=== PATIENT | female | born 1935 | race Caucasian/White ===

== ENCOUNTER 2017-01-02 14:51 | Outpatient (CLI) | payer MEDICARE, OTHER | END 2017-01-02 14:52 | disposition home or self-care (01) | DX: D61.9 Aplastic anemia, unspecified (principal) ==

== ENCOUNTER 2017-04-03 12:57 | Outpatient (CLI) | payer MEDICARE, OTHER | END 2017-04-03 12:58 | disposition critical access hospital (66) | DX: S00.81XA Abrasion of other part of head, initial encounter (principal); S80.211A Abrasion, right knee, initial encounter; W01.0XXA Fall on same level from slipping, tripping and stumbling without subsequent striking against object, initial encounter | CPT/HCPCS: A0425; A0429 ==

== ENCOUNTER 2017-04-03 13:25 | Emergency (ER) | payer MEDICARE, OTHER | END 2017-04-03 16:39 | disposition home or self-care (01) | DX: S81.011A Laceration without foreign body, right knee, initial encounter (principal); S00.83XA Contusion of other part of head, initial encounter; S60.512A Abrasion of left hand, initial encounter; S09.90XA Unspecified injury of head, initial encounter; W01.0XXA Fall on same level from slipping, tripping and stumbling without subsequent striking against object, initial encounter; J45.909 Unspecified asthma, uncomplicated ==

== ENCOUNTER 2017-04-25 14:26 | Outpatient (CLI) | payer MEDICARE, OTHER ==
[2017-04-25 14:47] LABS: BASOPHILS % (AUTO) 0.9 %; EOSINOPHILS # (AUTO) 0.7 10^3/uL (0.0-0.7); HCT - HEMATOCRIT 28.9 % (37.0-47.0); HGB - HEMOGLOBIN 9.8 g/dL (12.0-16.0); LYMPHOCYTES # (AUTO) 0.4 10^3/uL (1.5-3.5); LYMPHOCYTES % (AUTO) 10.4 %; MEAN CORPUSCULAR HEMOGLOBIN 35.5 pg (27.0-31.0); MEAN CORPUSCULAR HGB CONC 33.9 g/dL (32.0-36.0); MEAN CORPUSCULAR VOLUME 104.6 fL (81.0-99.0); MEAN PLATELET VOLUME 8.1 fL (7.9-10.8); MONOCYTES # (AUTO) 0.6 10^3/uL (0.0-1.0); MONOCYTES % (AUTO) 14.7 %; NEUTROPHILS # (AUTO) 2.3 10^3/uL (1.5-6.6); RED BLOOD COUNT 2.76 10^6/uL (4.20-5.40); RED CELL DISTRIBUTION WIDTH 13.3 % (12.0-15.0)
[2017-04-25 15:12] LABS: BILIRUBIN,DIRECT 0.1 mg/dL (0.1-0.5); BILIRUBIN,TOTAL 0.8 mg/dL (0.2-1.0); CALCIUM 9.8 mg/dL (8.5-10.3); CREATININE 1.3 mg/dL (0.4-1.0); POTASSIUM 4.4 mmol/L (3.5-5.0); TOTAL PROTEIN 6.2 g/dL (6.7-8.2)
== END 2017-04-25 14:27 | disposition home or self-care (01) ==
LOC: LAB 14:26
PROVIDERS: ATTEND Internal Medicine Hematology
DX: D61.9 Aplastic anemia, unspecified (principal)
CPT/HCPCS: 36415; 80048; 80076; 85025

== ENCOUNTER 2017-09-27 14:49 | Outpatient (CLI) | payer MEDICARE, OTHER | END 2017-09-27 14:50 | disposition home or self-care (01) | LOC: LAB 14:49 | PROVIDERS: ATTEND Internal Medicine | DX: R63.4 Abnormal weight loss (principal) | CPT/HCPCS: 36415; 84443 ==

== ENCOUNTER 2019-01-22 08:00 | Outpatient (CLI) | payer MEDICARE, OTHER ==
[2019-01-22 18:05] LABS: THYROID STIMULATING HORMONE 2.34 uIU/mL (0.34-5.60)
[2019-01-22 18:09] LABS: FREE T4 (FREE THYROXINE) 0.91 ng/dL (0.58-1.64)
== END 2019-01-22 23:59 | disposition home or self-care (01) ==
LOC: LAB.R 08:00
PROVIDERS: ATTEND Internal Medicine
DX: M62.81 Muscle weakness (generalized) (principal)
CPT/HCPCS: 84439; 84443; 84481

== ENCOUNTER 2019-01-23 15:03 | Outpatient (CLI) | payer MEDICARE, OTHER ==
[2019-01-23 15:31] LABS: ALBUMIN 3.6 g/dL (3.2-5.5); ALBUMIN/GLOBULIN RATIO 1.2 (1.0-2.2); BILIRUBIN,TOTAL 0.5 mg/dL (0.2-1.0); CALCIUM 9.5 mg/dL (8.5-10.3); CREATININE 0.9 mg/dL (0.4-1.0); TOTAL PROTEIN 6.6 g/dL (6.7-8.2)
[2019-01-23 15:37] LABS: BASOPHILS % (AUTO) 0.7 %; EOSINOPHILS # (AUTO) 0.4 10^3/uL (0.0-0.7); EOSINOPHILS % (AUTO) 8.3 %; HGB - HEMOGLOBIN 10.4 g/dL (12.0-16.0); LYMPHOCYTES # (AUTO) 0.5 10^3/uL (1.5-3.5); LYMPHOCYTES % (AUTO) 11.3 %; MEAN CORPUSCULAR HEMOGLOBIN 30.7 pg (27.0-31.0); MEAN CORPUSCULAR HGB CONC 32.3 g/dL (32.0-36.0); MEAN CORPUSCULAR VOLUME 95.2 fL (81.0-99.0); MEAN PLATELET VOLUME 8.4 fL (7.9-10.8); MONOCYTES # (AUTO) 0.5 10^3/uL (0.0-1.0); NEUTROPHILS # (AUTO) 3.3 10^3/uL (1.5-6.6); NEUTROPHILS % (AUTO) 68.7 %; PLT - PLATELET COUNT 259 10^3/uL (130-450); RED BLOOD COUNT 3.39 10^6/uL (4.20-5.40); RED CELL DISTRIBUTION WIDTH 15.6 % (12.0-15.0); WHITE BLOOD COUNT 4.8 x10^3/uL (4.8-10.8)
== END 2019-01-23 15:04 | disposition home or self-care (01) ==
LOC: LAB 15:03
PROVIDERS: ATTEND Physician Assistant Medical
DX: D61.9 Aplastic anemia, unspecified (principal)
CPT/HCPCS: 36415; 80053; 85025

== ENCOUNTER 2019-09-11 11:09 | Outpatient (CLI) | payer MEDICARE, OTHER ==
[2019-09-11 11:38] LABS: BASOPHILS % (AUTO) 0.9 %; EOSINOPHILS # (AUTO) 0.2 10^3/uL (0.0-0.7); HGB - HEMOGLOBIN 11.6 g/dL (12.0-16.0); LYMPHOCYTES # (AUTO) 0.5 10^3/uL (1.5-3.5); MEAN CORPUSCULAR HEMOGLOBIN 32.4 pg (27.0-31.0); MEAN CORPUSCULAR HGB CONC 31.5 g/dL (32.0-36.0); MEAN CORPUSCULAR VOLUME 102.8 fL (81.0-99.0); MONOCYTES # (AUTO) 0.4 10^3/uL (0.0-1.0); NEUTROPHILS # (AUTO) 2.4 10^3/uL (1.5-6.6); NEUTROPHILS % (AUTO) 66.8 %; PLT - PLATELET COUNT 216 10^3/uL (130-450); RED BLOOD COUNT 3.58 10^6/uL (4.20-5.40); RED CELL DISTRIBUTION WIDTH 12.5 % (12.0-15.0); WHITE BLOOD COUNT 3.5 x10^3/uL (4.8-10.8)
[2019-09-11 11:49] LABS: ALBUMIN 3.8 g/dL (3.2-5.5); ALBUMIN/GLOBULIN RATIO 1.4 (1.0-2.2); BILIRUBIN,TOTAL 0.6 mg/dL (0.2-1.0); CALCIUM 9.4 mg/dL (8.5-10.3); TOTAL PROTEIN 6.5 g/dL (6.7-8.2)
== END 2019-09-11 11:10 | disposition home or self-care (01) ==
LOC: LAB 11:09
PROVIDERS: ATTEND Family Medicine
DX: I87.8 Other specified disorders of veins (principal); I73.00 Raynaud's syndrome without gangrene; N18.9 Chronic kidney disease, unspecified
CPT/HCPCS: 36415; 80053; 82746; 85025

== ENCOUNTER 2020-08-25 14:59 | Outpatient (CLI) | payer MEDICARE, OTHER ==
[2020-08-25 16:23] LABS: ABSOLUTE RETICS # AUTO 0.041 10^6/uL (0.020-0.110); BASOPHILS % (AUTO) 0.7 %; EOSINOPHILS # (AUTO) 0.2 10^3/uL (0.0-0.7); EOSINOPHILS % (AUTO) 5.6 %; HGB - HEMOGLOBIN 11.5 g/dL (12.0-16.0); LYMPHOCYTES # (AUTO) 0.8 10^3/uL (1.5-3.5); LYMPHOCYTES % (AUTO) 20.5 %; MEAN CORPUSCULAR HGB CONC 31.8 g/dL (32.0-36.0); MEAN CORPUSCULAR VOLUME 103.7 fL (81.0-99.0); MEAN PLATELET VOLUME 10.6 fL (7.9-10.8); MONOCYTES # (AUTO) 0.5 10^3/uL (0.0-1.0); MONOCYTES % (AUTO) 13.2 %; NEUTROPHILS # (AUTO) 2.5 10^3/uL (1.5-6.6); NEUTROPHILS % (AUTO) 59.8 %; PLT - PLATELET COUNT 73 10^3/uL (130-450); RED BLOOD COUNT 3.49 10^6/uL (4.20-5.40); WHITE BLOOD COUNT 4.1 x10^3/uL (4.8-10.8)
== END 2020-08-25 15:00 | disposition home or self-care (01) ==
LOC: LAB 14:59
PROVIDERS: ATTEND Internal Medicine Hematology
DX: D61.9 Aplastic anemia, unspecified (principal)
CPT/HCPCS: 36415; 85025; 85045

== ENCOUNTER 2020-09-19 15:46 | Outpatient (CLI) | payer MEDICARE, OTHER ==
[2020-09-19 16:05] LABS: ABSOLUTE RETICS # AUTO 0.039 10^6/uL (0.020-0.110); BASOPHILS % (AUTO) 0.6 %; EOSINOPHILS # (AUTO) 0.3 10^3/uL (0.0-0.7); EOSINOPHILS % (AUTO) 5.4 %; LYMPHOCYTES # (AUTO) 0.8 10^3/uL (1.5-3.5); LYMPHOCYTES % (AUTO) 15.8 %; MEAN CORPUSCULAR HEMOGLOBIN 33.1 pg (27.0-31.0); MEAN CORPUSCULAR HGB CONC 32.3 g/dL (32.0-36.0); MEAN CORPUSCULAR VOLUME 102.5 fL (81.0-99.0); MEAN PLATELET VOLUME 10.1 fL (7.9-10.8); MONOCYTES # (AUTO) 0.6 10^3/uL (0.0-1.0); MONOCYTES % (AUTO) 11.5 %; NEUTROPHILS # (AUTO) 3.2 10^3/uL (1.5-6.6); NEUTROPHILS % (AUTO) 66.3 %; PLT - PLATELET COUNT 70 10^3/uL (130-450); RED BLOOD COUNT 3.62 10^6/uL (4.20-5.40); WHITE BLOOD COUNT 4.8 x10^3/uL (4.8-10.8)
== END 2020-09-19 15:47 | disposition home or self-care (01) ==
LOC: LAB 15:46
PROVIDERS: ATTEND Internal Medicine Hematology
DX: D61.9 Aplastic anemia, unspecified (principal)
CPT/HCPCS: 36415; 85025; 85045

== ENCOUNTER 2020-11-07 15:57 | Outpatient (CLI) | payer MEDICARE, OTHER ==
[2020-11-07 16:16] LABS: ABSOLUTE RETICS # AUTO 0.045 10^6/uL (0.020-0.110); BASOPHILS % (AUTO) 0.8 %; EOSINOPHILS # (AUTO) 0.1 10^3/uL (0.0-0.7); EOSINOPHILS % (AUTO) 3.2 %; HGB - HEMOGLOBIN 11.8 g/dL (12.0-16.0); LYMPHOCYTES # (AUTO) 0.7 10^3/uL (1.5-3.5); LYMPHOCYTES % (AUTO) 17.7 %; MEAN CORPUSCULAR HGB CONC 31.5 g/dL (32.0-36.0); MEAN CORPUSCULAR VOLUME 101.6 fL (81.0-99.0); MEAN PLATELET VOLUME 10.9 fL (7.9-10.8); MONOCYTES # (AUTO) 0.5 10^3/uL (0.0-1.0); MONOCYTES % (AUTO) 14.2 %; NEUTROPHILS # (AUTO) 2.4 10^3/uL (1.5-6.6); NEUTROPHILS % (AUTO) 63.8 %; PLT - PLATELET COUNT 49 10^3/uL (130-450); RED BLOOD COUNT 3.69 10^6/uL (4.20-5.40); RED CELL DISTRIBUTION WIDTH 12.4 % (12.0-15.0); WHITE BLOOD COUNT 3.8 x10^3/uL (4.8-10.8)
== END 2020-11-07 15:58 | disposition home or self-care (01) ==
LOC: LAB 15:57
PROVIDERS: ATTEND Internal Medicine Hematology
DX: D61.9 Aplastic anemia, unspecified (principal)
CPT/HCPCS: 36415; 85025; 85045

== ENCOUNTER 2020-12-13 08:00 | Outpatient (CLI) | payer MEDICARE, OTHER ==
[2020-12-13 15:11] LABS: ABSOLUTE RETICS # AUTO 0.042 10^6/uL (0.020-0.110); EOSINOPHILS # (AUTO) 0.2 10^3/uL (0.0-0.7); EOSINOPHILS % (AUTO) 4.3 %; HGB - HEMOGLOBIN 12.3 g/dL (12.0-16.0); LYMPHOCYTES # (AUTO) 0.6 10^3/uL (1.5-3.5); LYMPHOCYTES % (AUTO) 13.8 %; MEAN CORPUSCULAR HEMOGLOBIN 31.8 pg (27.0-31.0); MEAN CORPUSCULAR HGB CONC 31.6 g/dL (32.0-36.0); MEAN CORPUSCULAR VOLUME 100.5 fL (81.0-99.0); MEAN PLATELET VOLUME 10.5 fL (7.9-10.8); MONOCYTES # (AUTO) 0.5 10^3/uL (0.0-1.0); MONOCYTES % (AUTO) 11.8 %; NEUTROPHILS # (AUTO) 2.9 10^3/uL (1.5-6.6); NEUTROPHILS % (AUTO) 68.9 %; PLT - PLATELET COUNT 77 10^3/uL (130-450); RED BLOOD COUNT 3.87 10^6/uL (4.20-5.40); RED CELL DISTRIBUTION WIDTH 12.6 % (12.0-15.0); WHITE BLOOD COUNT 4.1 x10^3/uL (4.8-10.8)
== END 2020-12-13 08:01 | disposition home or self-care (01) ==
LOC: LAB 08:00
PROVIDERS: ATTEND Internal Medicine Hematology
DX: D61.9 Aplastic anemia, unspecified (principal)
CPT/HCPCS: 36415; 85025; 85045

== ENCOUNTER 2021-01-03 07:00 | Outpatient (CLI) | payer MEDICARE, OTHER | END 2021-01-03 23:59 | disposition home or self-care (01) | LOC: LAB.N 07:00 | PROVIDERS: ATTEND Family Medicine | DX: R30.0 Dysuria (principal) | CPT/HCPCS: 87086 ==

== ENCOUNTER 2021-02-14 13:40 | Outpatient (CLI) | payer MEDICARE, OTHER ==
[2021-02-14 13:54] LABS: ABSOLUTE RETICS # AUTO 0.046 10^6/uL (0.020-0.110); BASOPHILS % (AUTO) 0.8 %; EOSINOPHILS # (AUTO) 0.2 10^3/uL (0.0-0.7); EOSINOPHILS % (AUTO) 4.6 %; HCT - HEMATOCRIT 39.1 % (37.0-47.0); HGB - HEMOGLOBIN 12.4 g/dL (12.0-16.0); LYMPHOCYTES # (AUTO) 0.5 10^3/uL (1.5-3.5); LYMPHOCYTES % (AUTO) 13.5 %; MEAN CORPUSCULAR HEMOGLOBIN 31.6 pg (27.0-31.0); MEAN CORPUSCULAR HGB CONC 31.7 g/dL (32.0-36.0); MEAN CORPUSCULAR VOLUME 99.5 fL (81.0-99.0); MEAN PLATELET VOLUME 11.2 fL (7.9-10.8); MONOCYTES # (AUTO) 0.4 10^3/uL (0.0-1.0); MONOCYTES % (AUTO) 11.6 %; NEUTROPHILS # (AUTO) 2.6 10^3/uL (1.5-6.6); NEUTROPHILS % (AUTO) 69.2 %; PLT - PLATELET COUNT 71 10^3/uL (130-450); RED BLOOD COUNT 3.93 10^6/uL (4.20-5.40); RETICULOCYTE COUNT % (AUTO) 1.17 % (0.5-2.3); WHITE BLOOD COUNT 3.7 x10^3/uL (4.8-10.8)
[2021-02-14 14:07] LABS: ALBUMIN 4.3 g/dL (3.2-5.5); ALBUMIN/GLOBULIN RATIO 1.8 (1.0-2.2); BILIRUBIN,TOTAL 0.8 mg/dL (0.2-1.0); CALCIUM 9.6 mg/dL (8.5-10.3); POTASSIUM 4.4 mmol/L (3.5-5.0); TOTAL PROTEIN 6.7 g/dL (6.7-8.2)
== END 2021-02-14 13:41 | disposition home or self-care (01) ==
LOC: LAB 13:40
PROVIDERS: ATTEND Internal Medicine Hematology
DX: D61.9 Aplastic anemia, unspecified (principal)
CPT/HCPCS: 36415; 80053; 85025; 85045

== ENCOUNTER 2021-02-27 15:34 | Outpatient (CLI) | payer MEDICARE, OTHER ==
--- NOTE | 2021-02-27 16:26 | XRAY Report ---
PROCEDURE: Knee 3 View RT INDICATIONS: ARTHRITIS,RIGHT KNEE TECHNIQUE: 3 views of the right knee(s) were acquired. COMPARISON: None. FINDINGS: Bones: No fractures or dislocations. No suspicious bony lesions. Mild tricompartmental knee joint space narrowing with periarticular osteophyte formation. Mild osteopenia. Soft tissues: No joint effusion. No suspicious soft tissue calcifications. IMPRESSION: Mild tricompartmental knee joint degeneration and mild osteopenia is noted. Reviewed by: DURGA Guzman on 02/27/2021 4:25 PM PDT Approved by: Elkin Atkinson MD on 02/27/2021 4:25 PM PDT Station ID: [id number]
== END 2021-02-27 15:35 | disposition home or self-care (01) ==
LOC: DI 15:34
PROVIDERS: ATTEND Family Medicine
DX: M17.11 Unilateral primary osteoarthritis, right knee (principal); M85.861 Other specified disorders of bone density and structure, right lower leg

== ENCOUNTER 2021-05-23 15:43 | Outpatient (CLI) | payer MEDICARE, OTHER ==
[2021-05-23 16:27] LABS: ABSOLUTE RETICS # AUTO 0.046 10^6/uL (0.020-0.110); BASOPHILS # (AUTO) 0.1 10^3/uL (0.0-0.1); BASOPHILS % (AUTO) 1.1 %; EOSINOPHILS # (AUTO) 0.3 10^3/uL (0.0-0.7); EOSINOPHILS % (AUTO) 5.7 %; HCT - HEMATOCRIT 37.7 % (37.0-47.0); HGB - HEMOGLOBIN 12.2 g/dL (12.0-16.0); LYMPHOCYTES # (AUTO) 0.7 10^3/uL (1.5-3.5); LYMPHOCYTES % (AUTO) 16.9 %; MEAN CORPUSCULAR HEMOGLOBIN 32.1 pg (27.0-31.0); MEAN CORPUSCULAR HGB CONC 32.4 g/dL (32.0-36.0); MEAN CORPUSCULAR VOLUME 99.2 fL (81.0-99.0); MEAN PLATELET VOLUME 10.3 fL (7.9-10.8); MONOCYTES # (AUTO) 0.5 10^3/uL (0.0-1.0); MONOCYTES % (AUTO) 12.1 %; NEUTROPHILS # (AUTO) 2.8 10^3/uL (1.5-6.6); PLT - PLATELET COUNT 111 10^3/uL (130-450); RED CELL DISTRIBUTION WIDTH 12.8 % (12.0-15.0); RETICULOCYTE COUNT % (AUTO) 1.21 % (0.5-2.3); WHITE BLOOD COUNT 4.4 x10^3/uL (4.8-10.8)
== END 2021-05-23 15:44 | disposition home or self-care (01) ==
LOC: LAB 15:43
PROVIDERS: ATTEND Internal Medicine Hematology
DX: D61.9 Aplastic anemia, unspecified (principal)
CPT/HCPCS: 36415; 85025; 85045

== ENCOUNTER 2021-08-25 14:57 | Outpatient (CLI) | payer MEDICARE, OTHER ==
[2021-08-25 15:20] LABS: ABSOLUTE RETICS # AUTO 0.051 10^6/uL (0.020-0.110); BASOPHILS % (AUTO) 0.6 %; EOSINOPHILS # (AUTO) 0.2 10^3/uL (0.0-0.7); EOSINOPHILS % (AUTO) 4.6 %; HCT - HEMATOCRIT 38.9 % (37.0-47.0); HGB - HEMOGLOBIN 12.3 g/dL (12.0-16.0); LYMPHOCYTES # (AUTO) 0.7 10^3/uL (1.5-3.5); MEAN CORPUSCULAR HGB CONC 31.6 g/dL (32.0-36.0); MEAN CORPUSCULAR VOLUME 101.3 fL (81.0-99.0); MEAN PLATELET VOLUME 10.8 fL (7.9-10.8); MONOCYTES # (AUTO) 0.5 10^3/uL (0.0-1.0); MONOCYTES % (AUTO) 9.8 %; NEUTROPHILS # (AUTO) 3.4 10^3/uL (1.5-6.6); NEUTROPHILS % (AUTO) 70.8 %; PLT - PLATELET COUNT 65 10^3/uL (130-450); RED BLOOD COUNT 3.84 10^6/uL (4.20-5.40); RETICULOCYTE COUNT % (AUTO) 1.33 % (0.5-2.3); WHITE BLOOD COUNT 4.8 x10^3/uL (4.8-10.8)
[2021-08-25 15:32] LABS: ALBUMIN 4.2 g/dL (3.2-5.5); ALBUMIN/GLOBULIN RATIO 1.4 (1.0-2.2); BILIRUBIN,TOTAL 0.7 mg/dL (0.2-1.0); CALCIUM 9.6 mg/dL (8.5-10.3); POTASSIUM 4.7 mmol/L (3.5-5.0); TOTAL PROTEIN 7.1 g/dL (6.7-8.2)
== END 2021-08-25 14:58 | disposition home or self-care (01) ==
LOC: LAB 14:57
PROVIDERS: ATTEND Internal Medicine Hematology
DX: D61.9 Aplastic anemia, unspecified (principal)
CPT/HCPCS: 36415; 80053; 85025; 85045

== ENCOUNTER 2021-09-08 15:52 | Outpatient (CLI) | payer MEDICARE, OTHER ==
[2021-09-08 16:50] LABS: BASOPHILS % (AUTO) 0.7 %; EOSINOPHILS # (AUTO) 0.2 10^3/uL (0.0-0.7); HCT - HEMATOCRIT 39.3 % (37.0-47.0); HGB - HEMOGLOBIN 12.5 g/dL (12.0-16.0); LYMPHOCYTES # (AUTO) 0.6 10^3/uL (1.5-3.5); LYMPHOCYTES % (AUTO) 13.8 %; MEAN CORPUSCULAR HEMOGLOBIN 32.8 pg (27.0-31.0); MEAN CORPUSCULAR HGB CONC 31.8 g/dL (32.0-36.0); MEAN CORPUSCULAR VOLUME 103.1 fL (81.0-99.0); MEAN PLATELET VOLUME 10.1 fL (7.9-10.8); MONOCYTES # (AUTO) 0.5 10^3/uL (0.0-1.0); MONOCYTES % (AUTO) 11.8 %; NEUTROPHILS # (AUTO) 3.1 10^3/uL (1.5-6.6); NEUTROPHILS % (AUTO) 69.5 %; PLT - PLATELET COUNT 84 10^3/uL (130-450); RED BLOOD COUNT 3.81 10^6/uL (4.20-5.40); RED CELL DISTRIBUTION WIDTH 12.9 % (12.0-15.0); WHITE BLOOD COUNT 4.5 x10^3/uL (4.8-10.8)
[2021-09-08 17:07] LABS: ALBUMIN 4.5 g/dL (3.2-5.5); ALBUMIN/GLOBULIN RATIO 1.7 (1.0-2.2); BILIRUBIN,TOTAL 0.4 mg/dL (0.2-1.0); CALCIUM 10.3 mg/dL (8.5-10.3); CREATININE 1.1 mg/dL (0.4-1.0); POTASSIUM 4.4 mmol/L (3.5-5.0); TOTAL PROTEIN 7.2 g/dL (6.7-8.2)
== END 2021-09-08 15:53 | disposition home or self-care (01) ==
LOC: LAB 15:52
PROVIDERS: ATTEND Internal Medicine Hematology
DX: D61.9 Aplastic anemia, unspecified (principal)
CPT/HCPCS: 36415; 80053; 85025; 85045

== ENCOUNTER 2021-09-28 18:05 | Outpatient (CLI) | payer MEDICARE, OTHER | END 2021-09-28 18:06 | disposition critical access hospital (66) | LOC: EMS 18:05 | DX: S01.01XA Laceration without foreign body of scalp, initial encounter (principal); W18.30XA Fall on same level, unspecified, initial encounter; Y92.009 Unspecified place in unspecified non-institutional (private) residence as the place of occurrence of the external cause | CPT/HCPCS: A0425; A0429 ==

== ENCOUNTER 2021-09-28 18:19 | Emergency (ER) | payer MEDICARE, OTHER ==
[2021-09-28] MEDS ORDERED: TETANUS/DIPHTHERIA/PERTUSSIS 0.5 ML SYRINGE IM ONE (18:31)
[2021-09-28] MEDS ORDERED: ACETAMINOPHEN 325 MG TABLET PO STA (18:31)
--- NOTE | 2021-09-28 19:09 | ED Physician Documentation ---
History of Present Illness - Stated complaint Stated Complaint: GLF/ HEAD PX - Chief complaint Chief Complaint: Laceration - Additonal information Additional information: 86-year-old female presents emergency department after ground-level fall this afternoon. She has a history of chronic right knee disorder/pain. As she was attempting to move a large paining her knee gave out and she fell striking her head. There was no loss of consciousness. She has no history of anticoagulation. She presented via EMS with gauze wrapped around her head and a large amount of blood matting her hair. The laceration seems to extend from the posterior occiput. Patient reports her knee pain is no different from baseline she denies chest pain or hip back pain. Patient does have a history of subdural hematoma after fall many years ago status post evacuation surgically. Review of Systems Constitutional: denies: Fever, Chills Eyes: reports: Reviewed and negative Ears: reports: Reviewed and negative Nose: reports: Reviewed and negative Throat: reports: Reviewed and negative Cardiac: reports: Reviewed and negative Respiratory: reports: Reviewed and negative GI: reports: Reviewed and negative Skin: reports: Laceration (s) (posterior occiput) Musculoskeletal: reports: Extremity pain (right knee chronic) Neurologic: reports: Headache, Head injury Psychiatric: reports: Reviewed and negative PD PAST MEDICAL HISTORY - Past Medical History Cardiovascular: None Respiratory: Asthma Endocrine/Autoimmune: None GI: Other : None HEENT: None Psych: None Musculoskeletal: Osteoporosis Derm: Rosacea - Past Surgical History Past Surgical History: Yes General: Appendectomy, Bowel surgery, 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 Neuro: Other HEENT: Cataracts, Tonsil/Adenoidectomy - Present Medications Home Medications: Ambulatory Orders Medication Instructions Recorded Confirmed Folic Acid 1 mg PO DAILY 03/19/14 04/03/17 Multivitamin [Multi-Vitamin Daily] 1 each PO DAILY 03/19/14 04/03/17 Cyclosporine, Modified 50 mg PO QPM 07/07/15 04/03/17 [Cyclosporine Modified] Raloxifene [Evista] 60 mg PO DAILY 07/07/15 04/03/17 Valacyclovir HCl [Valacyclovir] 500 mg PO DAILY 07/07/15 04/03/17 Dapsone 50 mg PO BID 02/29/16 04/03/17 Cyclosporine, Modified 75 mg PO DAILY 04/15/16 04/03/17 [Cyclosporine Modified] Eltrombopag Olamine [Promacta] 25 mg PO DAILY 04/03/17 04/03/17 - Allergies Allergies/Adverse Reactions: Allergies Allergy/AdvReac Type Severity Reaction Status Date / Time Penicillins Allergy Mild Unknown Verified 04/03/17 13:37 wasp Allergy Unknown Uncoded 09/28/21 18:31 - Social History Does the pt smoke?: No Smoking Status: Never smoker Does the pt have substance abuse?: No - Immunizations Immunizations are current?: No Immunizations: TDAP >10years/unknown PD ED PE EXPANDED - General General: Alert, No acute distress, Well developed/nourished - HEENT HEENT: Head injury, PERRL, EOMI, Moist mucous membranes, Other (4 cm posterior o cciput laceration.) - Neck Neck: Supple w/out meningeal sx. No: Adenopathy - Cardiac Cardiac: Regular Rate, Radial strong equal, Pedal strong equal, Cap refill < 2 sec - Respiratory Respiratory: Clear to ausultation rupa. No: Distress, Labored - Abdomen Abdomen: Normal Bowel sounds. No: Tender to palpation - Derm Derm: Laceration(s) (4 cm posterior scalp laceration.) - Extremities Extremities: Normal, Tenderness, Right knee (Normal flexion extension of the right knee. Chronically painful and sore. No deformity.) - Neuro Neuro: Alert and Oriented X 3, CNII-XII intact, Normal speech - GCS Eye Opening: Spontaneous Motor: Obeys Commands Verbal: Oriented Total: 15 Results - Vitals Vitals: Vital Signs - 24 hr 09/28/21 18:20 Temperature 36.4 C L Heart Rate 83 Respiratory 16 Rate Blood Pressure 178/105 H O2 Saturation 96 Oxygen O2 Source Room air - Rads (name of study) cervical c-spine CT Radiology: Final report received (No fracture) CT head Radiology: Final report received (No acute intracranial abnormality. Right scalp hematoma. Volume loss and small vessel ischemic disease.) Procedures - Laceration (location) right scalp laceration Length in cm: 4.5 Wound type: Irregular, Flap, Contaminated Neurovascular status: Sensory intact Anesthesia: LET Wound preparation: Betadine, Irrigated copiously NS Skin layer closure: Morris (7 lupe placed) PD MEDICAL DECISION MAKING - ED course Complexity details: reviewed results, re-evaluated patient, d/w patient ED course: This is an 86-year-old female who had a mechanical ground-level fall this afternoon at home when her right knee gave out secondary to chronic pain. She fell striking her head on the framing of a pitcher. She sustained a deep scalp laceration with associated hematoma. She did not lose consciousness is not anticoagulated presented to the ER via EMS. Screening CT of the head shows no acute intracranial findings. It should be noted that she does have a history of remote subdural hematoma status post Craniectomy and evacuation. Cervical spine imaging was negative. On exam patient is alert and well-appearing. No focal neuro deficits. No tenderness in the hips or cervical thoracic or lumbar spine. The large posterior scalp laceration/hematoma was thoroughly cleansed. 7 lupe were placed to close this wound. Tetanus was updated today. Patient is stable for discharge home. It was advised that she have family members or friends stay with her for the next 2 to 3 days to ensure that she is not developing any altered mentation, sudden severe headache or signs of intracranial bleeding. Patient will follow up with her PCP in 5 days time. At that time lupe may be removed or if unable to be completed at PCP office patient will return to the ER. Departure - Departure Disposition: 01 Home, Self Care Clinical Impression: Fall from ground level Occipital scalp laceration Qualifiers: Encounter type: initial encounter Qualified Code(s): S01.01XA - Laceration without foreign body of scalp, initial encounter Condition: Stable Record reviewed to determine appropriate education?: Yes Instructions: ED Laceration All Follow-Up: Darcy Mayorga MD [Provider Admit Priv/Credential] - Comments: Martha brown were seen in the emergency department today after a fall at home in which you sustained a large laceration on your posterior scalp. The CT of your head does not show signs of bruising or bleeding within the brain. The CT of your neck was also normal. We were able to close your scalp laceration with 7 lupe. These should be removed in approximately 5 to 7 days. It is okay to shower normally. Place a thin layer of any antibiotic ointment over the laceration after showering. Your tetanus was updated today and should be good for the next 7 to 10 years. I would recommend that you have friends or family member stay with you for the next 2 to 3 days. If at any point you develop sudden severe headache, have uncontrolled vomiting, are behaving differently or have any concerns that you may have worsening head injury then please return immediately to the ER for a second evaluation.
[2021-09-28] MEDS ORDERED: BUFFERED LIDOCAINE 10 ML SYRINGE SUBQ STA (19:10)
--- NOTE | 2021-09-28 19:15 | CT Report ---
PROCEDURE: HEAD WO INDICATIONS: head injury TECHNIQUE: Noncontrast 4.5 mm thick angled axial sections acquired from the foramen magnum to the vertex. For r adiation dose reduction, the following was used: automated exposure control, adjustment of mA and/or kV according to patient size. COMPARISON: Head CT dated 04/03/2017 FINDINGS: Image quality: Excellent. CSF spaces: Basal cisterns are patent. No extra-axial fluid collections. Ventricles are normal in size and shape. Brain: No midline shift. No intracranial masses or hemorrhage. Royal-white matter interface is norm al. Skull and face: Right parietal subgaleal hematoma. Bilateral lonnie holes are present. Calvarium and v isualized facial bones are otherwise intact, without suspicious lesions. Sinuses: Visualized sinuses and mastoids are clear. IMPRESSION: 1. No acute intracranial abnormality. 2. Right scalp hematoma. 3. Volume loss and small vessel ischemic disease. 4. Postsurgical sequelae. Reviewed by: Darryl Lopez MD on 09/28/2021 7:14 PM PDT Approved by: Darryl Lopez MD on 09/28/2021 7:14 PM PDT Station ID: [id number]
--- NOTE | 2021-09-28 19:16 | CT Report ---
PROCEDURE: CERVICAL SPINE WO INDICATIONS: head injury TECHNIQUE: Noncontrast 3 mm thick sections acquired from the skull base to the T4 level. Sagittal and coronal r eformats were then constructed. For radiation dose reduction, the following was used: automated exp osure control, adjustment of mA and/or kV according to patient size. COMPARISON: None. FINDINGS: Image quality: Excellent. Bones: No fractures or dislocations. Moderate leftward curvature of the lower cervical spine. Multil evel degenerative disc and facet disease. Visualized superior ribs are intact. Soft tissues: Prevertebral soft tissues are normal in thickness. No paravertebral hematomas. No ap ical pneumothoraces. IMPRESSION: No fracture. Reviewed by: Darryl Lopez MD on 09/28/2021 7:15 PM PDT Approved by: Darryl Lopez MD on 09/28/2021 7:15 PM PDT Station ID: [id number]
[2021-09-28 20:54] VITALS: BP 124/81
== END 2021-09-28 20:45 | disposition home or self-care (01) ==
LOC: EDUNIT# → SUPCPDRO 18:19 → ED 18:19
DX: S01.01XA Laceration without foreign body of scalp, initial encounter (principal); W18.39XA Other fall on same level, initial encounter; Y93.E9 Activity, other interior property and clothing maintenance; Y92.009 Unspecified place in unspecified non-institutional (private) residence as the place of occurrence of the external cause
CPT/HCPCS: 12002; 70450; 72125; 90471; 90715; 99282; 99283; A9270

== ENCOUNTER 2021-11-13 14:43 | Outpatient (CLI) | payer MEDICARE, OTHER ==
[2021-11-13 15:01] LABS: ABSOLUTE RETICS # AUTO 0.042 10^6/uL (0.020-0.110); EOSINOPHILS # (AUTO) 0.2 10^3/uL (0.0-0.7); EOSINOPHILS % (AUTO) 5.5 %; HCT - HEMATOCRIT 40.3 % (37.0-47.0); HGB - HEMOGLOBIN 13.2 g/dL (12.0-16.0); LYMPHOCYTES # (AUTO) 0.7 10^3/uL (1.5-3.5); LYMPHOCYTES % (AUTO) 17.2 %; MEAN CORPUSCULAR HEMOGLOBIN 33.1 pg (27.0-31.0); MEAN CORPUSCULAR HGB CONC 32.8 g/dL (32.0-36.0); MEAN PLATELET VOLUME 10.5 fL (7.9-10.8); MONOCYTES # (AUTO) 0.4 10^3/uL (0.0-1.0); NEUTROPHILS # (AUTO) 2.8 10^3/uL (1.5-6.6); NEUTROPHILS % (AUTO) 66.3 %; PLT - PLATELET COUNT 89 10^3/uL (130-450); RED BLOOD COUNT 3.99 10^6/uL (4.20-5.40); RED CELL DISTRIBUTION WIDTH 12.8 % (12.0-15.0); RETICULOCYTE COUNT % (AUTO) 1.05 % (0.5-2.3); WHITE BLOOD COUNT 4.2 x10^3/uL (4.8-10.8)
[2021-11-13 15:11] LABS: ALBUMIN 4.8 g/dL (3.2-5.5); BILIRUBIN,TOTAL 0.5 mg/dL (0.2-1.0); CALCIUM 10.3 mg/dL (8.5-10.3); CREATININE 1.1 mg/dL (0.4-1.0); POTASSIUM 4.8 mmol/L (3.5-5.0); TOTAL PROTEIN 7.2 g/dL (6.7-8.2)
== END 2021-11-13 14:44 | disposition home or self-care (01) ==
LOC: LAB 14:43
PROVIDERS: ATTEND Internal Medicine Hematology
DX: D61.9 Aplastic anemia, unspecified (principal)
CPT/HCPCS: 36415; 80053; 85025; 85045

== ENCOUNTER 2022-04-17 13:00 | Outpatient (CLI) | payer MEDICARE, OTHER ==
--- NOTE | 2022-04-17 17:52 | XRAY Report ---
PROCEDURE: Knee 4 View RT INDICATIONS: RIGHT KNEE PAIN TECHNIQUE: 4 views of the right knee(s) were acquired. COMPARISON: 02/27/2021 FINDINGS: Bones: No acute fractures or dislocations. No suspicious bony lesions. Diffuse osteopenia. Minimal joint space narrowing of the lateral femorotibial compartment bilaterally. Soft tissues: No joint effusion. No suspicious soft tissue calcifications. IMPRESSION: Right knee without acute fracture or dislocation. Tricompartmental osteoarthrosis with m inimal lateral femorotibial compartment joint space narrowing. Diffuse osteopenia. Reviewed by: Mykel Holland MD on 04/17/2022 5:50 PM PDT Approved by: Mykel Holland MD on 04/17/2022 5:50 PM PDT Station ID: [id number]
== END 2022-04-17 23:59 | disposition home or self-care (01) ==
LOC: DI.WOS 13:00
PROVIDERS: ATTEND Physician Assistant
DX: M17.11 Unilateral primary osteoarthritis, right knee (principal); M85.88 Other specified disorders of bone density and structure, other site

== ENCOUNTER 2022-07-02 08:00 | Outpatient (CLI) | payer MEDICARE, OTHER ==
--- NOTE | 2022-07-02 16:37 | XRAY Report ---
PROCEDURE: Hip 2 View RT INDICATIONS: HIP PX TECHNIQUE: 2 views of the hip were acquired. COMPARISON: None FINDINGS: Bones: No fractures or dislocations. No suspicious bony lesions. The visualized pelvic ring appear s intact. Severe right hip degenerative narrowing with subchondral sclerosis and periarticular osteo phytes. Moderate arthritic narrowing is noted on the left. No definitive erosions. Soft tissues: No suspicious soft tissue calcifications or masses. 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 Reviewed by: Hoa Stewart MD on 07/02/2022 4:35 PM PDT Approved by: Hoa Stewart MD on 07/02/2022 4:35 PM PDT Station ID: [id number]
== END 2022-07-02 23:59 | disposition home or self-care (01) ==
LOC: DI.WOS 08:00
PROVIDERS: ATTEND Physician Assistant
DX: M16.0 Bilateral primary osteoarthritis of hip (principal)

== ENCOUNTER 2022-10-11 13:14 | Outpatient (CLI) | payer MEDICARE, OTHER ==
[2022-10-11 13:36] LABS: ABSOLUTE RETICS # AUTO 0.046 10^6/uL (0.020-0.110); BASOPHILS % (AUTO) 0.8 %; EOSINOPHILS # (AUTO) 0.1 10^3/uL (0.0-0.7); EOSINOPHILS % (AUTO) 3.7 %; HCT - HEMATOCRIT 38.4 % (37.0-47.0); HGB - HEMOGLOBIN 12.2 g/dL (12.0-16.0); LYMPHOCYTES # (AUTO) 0.5 10^3/uL (1.5-3.5); LYMPHOCYTES % (AUTO) 12.9 %; MEAN CORPUSCULAR HEMOGLOBIN 31.9 pg (27.0-31.0); MEAN CORPUSCULAR HGB CONC 31.8 g/dL (32.0-36.0); MEAN CORPUSCULAR VOLUME 100.3 fL (81.0-99.0); MEAN PLATELET VOLUME 9.9 fL (7.9-10.8); MONOCYTES # (AUTO) 0.5 10^3/uL (0.0-1.0); MONOCYTES % (AUTO) 13.4 %; NEUTROPHILS # (AUTO) 2.6 10^3/uL (1.5-6.6); NEUTROPHILS % (AUTO) 68.9 %; PLT - PLATELET COUNT 133 10^3/uL (130-450); RED BLOOD COUNT 3.83 10^6/uL (4.20-5.40); RED CELL DISTRIBUTION WIDTH 13.2 % (12.0-15.0); RETICULOCYTE COUNT % (AUTO) 1.19 % (0.5-2.3); WHITE BLOOD COUNT 3.8 x10^3/uL (4.8-10.8)
[2022-10-11 13:46] LABS: ALBUMIN 4.5 g/dL (3.2-5.5); ALBUMIN/GLOBULIN RATIO 1.6 (1.0-2.2); BILIRUBIN,TOTAL 0.4 mg/dL (0.2-1.0); CALCIUM 10.1 mg/dL (8.5-10.3); POTASSIUM 4.7 mmol/L (3.5-5.0); TOTAL PROTEIN 7.3 g/dL (6.7-8.2)
[2022-10-11 14:01] LABS: PLATELET MORPHOLOGY NORMAL APPEARANCE (NORMAL); SLIDE REVIEW? Indicated
[2022-10-11 14:02] LABS: PLATELET ESTIMATE, MANUAL NORMAL (130-450,000) (NORMAL); RBC MORPHOLOGY (MULTIPLE) 1+ ACANTHOCYTES (NORMAL); WBC MORPHOLOGY (MULTIPLE) NORMAL APPEARANCE (NORMAL)
== END 2022-10-11 13:15 | disposition home or self-care (01) ==
LOC: LAB 13:14
PROVIDERS: ATTEND Internal Medicine Hematology
DX: D61.9 Aplastic anemia, unspecified (principal)
CPT/HCPCS: 36415; 80053; 85025; 85045

== ENCOUNTER 2022-12-27 10:45 | Outpatient (CLI) | payer MEDICARE, OTHER ==
--- NOTE | 2022-12-27 17:57 | Ultrasound Report ---
PROCEDURE: Duplex Lwr Ext Arterial RT INDICATIONS: NON-PRESSURE CHRONIC ULCER OF RIGHT ANKLE W/OTH TECHNIQUE: Color and pulse Doppler interrogation was performed of the right lower extremity arterial system, wit h image documentation. COMPARISON: None FINDINGS: Common femoral artery: 97.1 cm/sec, with triphasic flow. Deep femoral artery: 117.4 cm/sec, with triphasic flow. Proximal superficial femoral artery: 72.1 cm/sec, with triphasic flow. Mid superficial femoral artery: 74.7 cm/sec, with triphasic flow. Distal superficial femoral artery: 161 cm/sec, with triphasic flow. Popliteal artery: 127.2 cm/sec, with triphasic flow. Posterior tibial artery: 312.9 cm/sec, with triphasic flow. Anterior tibial artery/dorsalis pedis: 173.8 cm/sec, with triphasic flow. Royal-scale imaging description: Atheromatous plaque is present scattered throughout the right lower extremity arteries. There is likely a hemodynamically significant stenosis within the distal right SF A and the proximal right posterior tibial artery. All 3 infrageniculate arteries are patent to the le yancy of the foot. IMPRESSION: 1. Hemodynamically significant stenoses within the distal right SFA and the proximal right posterior tibial artery. 2. There is three-vessel right lower extremity runoff. Reviewed by: Jayashree Duque MD on 12/27/2022 5:56 PM PST Approved by: Jayashree Duque MD on 12/27/2022 5:56 PM PST Station ID: [id number]
--- NOTE | 2022-12-27 21:39 | XRAY Report ---
PROCEDURE: Ankle 3 View RT INDICATIONS: NON-PRESSURE CHRONIC ULCER OF RIGHT ANKLE WITH OTH evaluate for osteomyelitis lateral m alleolus TECHNIQUE: 3 views of the ankle were acquired. COMPARISON: None FINDINGS: Bones: The bones appear demineralized. No acute fracture or dislocation identified. No definitive ero sive change or suspicious periosteal reaction. Soft tissues: No definite tibiotalar joint effusion. IMPRESSION: No definitive radiographic evidence of osteomyelitis identified. If symptoms persist, follow-up radio graphs and/or CT or MRI or nuclear medicine bone scan may be helpful for further evaluation. Reviewed by: Shlomo Hill MD on 12/27/2022 9:38 PM PST Approved by: Shlomo Hill MD on 12/27/2022 9:38 PM PST Station ID: [id number]
== END 2022-12-27 10:46 | disposition home or self-care (01) ==
LOC: DI 10:45
PROVIDERS: ATTEND Family Medicine
DX: I73.9 Peripheral vascular disease, unspecified (principal); L97.318 Non-pressure chronic ulcer of right ankle with other specified severity

== ENCOUNTER 2023-01-15 15:20 | Outpatient (CLI) | payer MEDICARE, OTHER ==
[2023-01-15 15:37] LABS: ABSOLUTE RETICS # AUTO 0.039 10^6/uL (0.020-0.110); BASOPHILS # (AUTO) 0.1 10^3/uL (0.0-0.1); BASOPHILS % (AUTO) 1.3 %; EOSINOPHILS # (AUTO) 0.4 10^3/uL (0.0-0.7); EOSINOPHILS % (AUTO) 9.8 %; HCT - HEMATOCRIT 36.2 % (37.0-47.0); HGB - HEMOGLOBIN 11.4 g/dL (12.0-16.0); LYMPHOCYTES # (AUTO) 0.5 10^3/uL (1.5-3.5); LYMPHOCYTES % (AUTO) 13.6 %; MEAN CORPUSCULAR HEMOGLOBIN 31.2 pg (27.0-31.0); MEAN CORPUSCULAR HGB CONC 31.5 g/dL (32.0-36.0); MEAN CORPUSCULAR VOLUME 99.2 fL (81.0-99.0); MEAN PLATELET VOLUME 9.9 fL (7.9-10.8); MONOCYTES # (AUTO) 0.4 10^3/uL (0.0-1.0); MONOCYTES % (AUTO) 11.4 %; NEUTROPHILS # (AUTO) 2.4 10^3/uL (1.5-6.6); NEUTROPHILS % (AUTO) 63.6 %; PLT - PLATELET COUNT 135 10^3/uL (130-450); RED BLOOD COUNT 3.65 10^6/uL (4.20-5.40); RED CELL DISTRIBUTION WIDTH 13.3 % (12.0-15.0); RETICULOCYTE COUNT % (AUTO) 1.07 % (0.5-2.3); WHITE BLOOD COUNT 3.8 x10^3/uL (4.8-10.8)
[2023-01-15 15:49] LABS: ALBUMIN 4.2 g/dL (3.2-5.5); ALBUMIN/GLOBULIN RATIO 1.4 (1.0-2.2); BILIRUBIN,TOTAL 0.7 mg/dL (0.2-1.0); CALCIUM 10.3 mg/dL (8.5-10.3); CREATININE 0.9 mg/dL (0.4-1.0); POTASSIUM 4.1 mmol/L (3.5-5.0); TOTAL PROTEIN 7.2 g/dL (6.7-8.2)
== END 2023-01-15 15:21 | disposition home or self-care (01) ==
LOC: LAB 15:20
PROVIDERS: ATTEND Internal Medicine Hematology
DX: D61.9 Aplastic anemia, unspecified (principal)
CPT/HCPCS: 36415; 80053; 85025; 85045

== ENCOUNTER 2023-01-23 13:44 | Outpatient (CLI) | payer MEDICARE, OTHER ==
[2023-01-23] MEDS ORDERED: iohexoL-300 100 ML VIAL ONE (14:00)
[2023-01-23 14:07] LABS: CREATININE 0.9 mg/dL (0.4-1.0)
[2023-01-23] MEDS ORDERED: iohexoL-300 100 ML VIAL IVP ONE (15:49)
--- NOTE | 2023-01-23 17:09 | CT Report ---
PROCEDURE: ANGIO ABD RUNOFF W/WO - B/L INDICATIONS: PVD, VENOUS INSUFFICENCY CONTRAST: Omni 300 125ml TECHNIQUE: After the administration of intravenous contrast, 2 and 5 mm sections acquired from T12 to the feet, with optional delayed image acquisition from the knees to the feet. 3-dimensional maximum intensity projection (MIP) coronal and sagittal reformats, and/or 3-dimensional volume rendering reformatting w as then performed. For radiation dose reduction, the following was used: automated exposure control , adjustment of mA and/or kV according to patient size. COMPARISON: None. FINDINGS: Image quality: Excellent. Extravascular tissues: Lung bases are clear. Mild cardiomegaly. Liver and spleen are normal in size and enhancement. Gallbladder is unremarkable. Biliary system is non dilated. Pancreas enhances nor nina. No adrenal nodules. Kidneys are normal in size and enhancement, without hydronephrosis. Non opacified bowel loops demonstrate normal wall thickness and enhancement. No free fluid or air. No retroperitoneal or mesenteric adenopathy. No ventral hernias. Bladder wall thickness is normal. No inguinal hernias or adenopathy. No suspicious bony lesions. Uterus is surgically absent. No verteb ral body compression fractures. Abdominal aorta: No significant stenotic disease. No aneurysm. Celiac patent. SMA has a mild stenosi s. Renal arteries are patent. Right lower extremity: Common iliac and external iliac and common femoral are patent. Mild diffuse S FA disease with a focal moderate distal SFA stenosis. Mild popliteal stenotic disease. There is mild popliteal stenotic disease. There is a severe tibioperoneal trunk stenosis. The anterior tibial and p osterior tibial are continuous runoff vessels. The peroneal occludes distally. Left lower extremity: Common iliac, external iliac, and common femoral are patent. Mild diffuse SFA stenotic disease. Mild popliteal disease. 3 patent runoff vessels. IMPRESSION: 1. No significant aortoiliac stenotic disease. 2. On the right, there is mild diffuse SFA disease with a focal moderate distal SFA stenosis. There i s a severe tibioperoneal trunk stenosis. There is two-vessel anterior tibial and posterior tibial run off. 3. On the left, there is no hemodynamically significant stenosis noted. There is three-vessel runoff. Reviewed by: Elkin Atkinson MD on 01/23/2023 5:08 PM PST Approved by: Elkin Atkinson MD on 01/23/2023 5:08 PM [facility] Station ID: [id number]
== END 2023-01-23 13:45 | disposition home or self-care (01) ==
LOC: LAB 13:44
PROVIDERS: ATTEND Family Medicine
DX: I87.2 Venous insufficiency (chronic) (peripheral) (principal); L97.316 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 without evidence of necrosis; I70.202 Unspecified atherosclerosis of native arteries of extremities, left leg; I70.201 Unspecified atherosclerosis of native arteries of extremities, right leg
CPT/HCPCS: 36415; 75635; 82565; Q9967

== ENCOUNTER 2023-04-23 16:22 | Outpatient (CLI) | payer MEDICARE, OTHER ==
[2023-04-23 16:46] LABS: ABSOLUTE RETICS # AUTO 0.044 10^6/uL (0.020-0.110); BASOPHILS % (AUTO) 0.8 %; EOSINOPHILS # (AUTO) 0.1 10^3/uL (0.0-0.7); EOSINOPHILS % (AUTO) 2.7 %; HCT - HEMATOCRIT 36.8 % (37.0-47.0); HGB - HEMOGLOBIN 11.7 g/dL (12.0-16.0); LYMPHOCYTES # (AUTO) 0.5 10^3/uL (1.5-3.5); LYMPHOCYTES % (AUTO) 10.4 %; MEAN CORPUSCULAR HEMOGLOBIN 31.4 pg (27.0-31.0); MEAN CORPUSCULAR HGB CONC 31.8 g/dL (32.0-36.0); MEAN CORPUSCULAR VOLUME 98.7 fL (81.0-99.0); MEAN PLATELET VOLUME 10.4 fL (7.9-10.8); MONOCYTES # (AUTO) 0.4 10^3/uL (0.0-1.0); MONOCYTES % (AUTO) 8.3 %; NEUTROPHILS % (AUTO) 77.6 %; PLT - PLATELET COUNT 142 10^3/uL (130-450); RED BLOOD COUNT 3.73 10^6/uL (4.20-5.40); RED CELL DISTRIBUTION WIDTH 13.2 % (12.0-15.0); RETICULOCYTE COUNT % (AUTO) 1.17 % (0.5-2.3); WHITE BLOOD COUNT 5.2 x10^3/uL (4.8-10.8)
[2023-04-23 16:54] LABS: ALBUMIN/GLOBULIN RATIO 1.5 (1.0-2.2); BILIRUBIN,TOTAL 0.6 mg/dL (0.2-1.0); CALCIUM 9.7 mg/dL (8.5-10.3); POTASSIUM 4.3 mmol/L (3.5-5.0); TOTAL PROTEIN 6.7 g/dL (6.7-8.2)
== END 2023-04-23 16:23 | disposition home or self-care (01) ==
LOC: LAB 16:22
PROVIDERS: ATTEND Internal Medicine Hematology
DX: D61.9 Aplastic anemia, unspecified (principal)
CPT/HCPCS: 36415; 80053; 85025; 85045

== ENCOUNTER 2023-08-12 14:04 | Outpatient (CLI) | payer MEDICARE, OTHER ==
[2023-08-12 14:19] LABS: ABSOLUTE RETICS # AUTO 0.036 10^6/uL (0.020-0.110); BASOPHILS # (AUTO) 0.1 10^3/uL (0.0-0.1); BASOPHILS % (AUTO) 1.4 %; EOSINOPHILS # (AUTO) 0.3 10^3/uL (0.0-0.7); EOSINOPHILS % (AUTO) 8.6 %; HCT - HEMATOCRIT 38.5 % (37.0-47.0); HGB - HEMOGLOBIN 12.1 g/dL (12.0-16.0); LYMPHOCYTES # (AUTO) 0.6 10^3/uL (1.5-3.5); LYMPHOCYTES % (AUTO) 15.7 %; MEAN CORPUSCULAR HEMOGLOBIN 31.3 pg (27.0-31.0); MEAN CORPUSCULAR HGB CONC 31.4 g/dL (32.0-36.0); MEAN CORPUSCULAR VOLUME 99.5 fL (81.0-99.0); MEAN PLATELET VOLUME 9.8 fL (7.9-10.8); MONOCYTES # (AUTO) 0.5 10^3/uL (0.0-1.0); MONOCYTES % (AUTO) 12.2 %; NEUTROPHILS # (AUTO) 2.3 10^3/uL (1.5-6.6); NEUTROPHILS % (AUTO) 61.8 %; PLT - PLATELET COUNT 160 10^3/uL (130-450); RED BLOOD COUNT 3.87 10^6/uL (4.20-5.40); RED CELL DISTRIBUTION WIDTH 12.9 % (12.0-15.0); RETICULOCYTE COUNT % (AUTO) 0.92 % (0.5-2.3); WHITE BLOOD COUNT 3.7 x10^3/uL (4.8-10.8)
[2023-08-12 14:45] LABS: ALBUMIN 4.4 g/dL (3.2-5.5); ALBUMIN/GLOBULIN RATIO 1.9 (1.0-2.2); BILIRUBIN,TOTAL 0.5 mg/dL (0.2-1.0); CALCIUM 10.2 mg/dL (8.5-10.3); POTASSIUM 4.4 mmol/L (3.5-4.5); TOTAL PROTEIN 6.7 g/dL (6.4-8.9)
== END 2023-08-12 14:05 | disposition home or self-care (01) ==
LOC: LAB 14:04
PROVIDERS: ATTEND Internal Medicine Hematology
DX: D61.9 Aplastic anemia, unspecified (principal)
CPT/HCPCS: 36415; 80053; 85025; 85045

== ENCOUNTER 2023-08-13 08:00 | Outpatient (CLI) | payer MEDICARE, OTHER ==
--- NOTE | 2023-08-13 16:24 | XRAY Report ---
PROCEDURE: Hip 2 View RT INDICATIONS: RIGHT HIP PAIN TECHNIQUE: Right views of the hip were acquired. COMPARISON: None. FINDINGS: Bones: No fractures or dislocations. No suspicious bony lesions. Severe right hip osteoarthritis wi th osseous hypertrophy, joint space narrowing and subchondral sclerosis. Soft tissues: No suspicious soft tissue calcifications or masses. IMPRESSION: Severe right hip osteophytes. Reviewed by: Melita Joy MD, PhD on 08/13/2023 4:22 PM PDT Approved by: Melita Joy MD, PhD on 08/13/2023 4:22 PM PDT Station ID: [id number]
== END 2023-08-13 23:59 | disposition home or self-care (01) ==
LOC: DI.WOS 08:00
PROVIDERS: ATTEND Physician Assistant Surgical
DX: M16.11 Unilateral primary osteoarthritis, right hip (principal); M25.751 Osteophyte, right hip

== ENCOUNTER 2023-11-27 20:59 | Outpatient (CLI) | payer MEDICARE, OTHER | END 2023-11-27 21:00 | disposition critical access hospital (66) | LOC: EMS 20:59 | DX: M25.561 Pain in right knee (principal); M25.461 Effusion, right knee; W18.39XA Other fall on same level, initial encounter; Y92.009 Unspecified place in unspecified non-institutional (private) residence as the place of occurrence of the external cause | CPT/HCPCS: A0425; A0429 ==

== ENCOUNTER 2023-11-27 21:12 | Emergency (ER) | payer MEDICARE, OTHER ==
[2023-11-27] MEDS ORDERED: ACETAMINOPHEN 325 MG TABLET PO STA (21:28)
--- NOTE | 2023-11-27 21:31 | ED Physician Documentation ---
PD HPI LOWER EXT INJURY - Stated complaint Stated Complaint: RT KNEE PAIN S/P FALL - Chief complaint Chief Complaint: Ext Problem - History obtained from History obtained from: Patient - Additional information Additional information: The patient comes to the emergency department for chief complaint of right knee pain. She has a longstanding history of right knee arthritis and pain which seemed to get worse in 2019. She states at that time, she was seen by orthopedics and they told her that she was not a candidate for surgery at that time. The patient states that she has had flareups of knee pain since and that last week, she took a fall onto her right knee. She was able to ambulate on it after that and has been controlling any pain or discomfort with Tylenol. Today though, she states she was getting up with her walker when her right knee just collapsed. She states that she tried to pull herself up on adjacent furniture, but was not quite strong enough to do so and ended up just lowering herself to the floor. She does not feel like she reinjured her knee today, but since that has been hurting and a bit swollen since the fall last week, she wanted to get it checked out. No other injuries or complaints at this time. 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 Neuro: Other HEENT: Cataracts, Tonsil/Adenoidectomy Derm: Skin cancer surgery - Present Medications Home Medications: Ambulatory Orders Medication Instructions Recorded Confirmed Folic Acid 1 mg PO DAILY 03/19/14 04/08/23 Multivitamin [Multi-Vitamin Daily] 1 each PO DAILY 03/19/14 04/08/23 Dapsone 50 mg PO BID 02/29/16 04/08/23 Eltrombopag Olamine [Promacta] 25 mg PO DAILY 04/03/17 04/08/23 - Allergies Allergies/Adverse Reactions: Allergies Allergy/AdvReac Type Severity Reaction Status Date / Time dapsone Allergy Severe Rash Verified 11/27/23 21:27 Penicillins Allergy Severe Unknown Verified 11/27/23 21:28 wasp Allergy Severe Anaphylaxis Uncoded 11/27/23 21:28 - Social History Does the pt smoke?: No Smoking Status: Never smoker Does the pt have substance abuse?: No - Immunizations Immunizations are current?: No Immunizations: TDAP >10years/unknown PD ED PE NORMAL - Vitals Vital signs reviewed: Yes - General General: Alert and oriented X 3, No acute distress, Well developed/nourished, Other (Well-appearing) - HEENT HEENT: Atraumatic, PERRL, Moist mucous membranes - Neck Neck: Supple, no meningeal sign - Cardiac Cardiac: Strong equal pulses - Respiratory Respiratory: No respiratory distress - Derm Derm: Normal color, Warm and dry, No rash - Extremities Extremities: No deformity, Other (Mild edema right knee globally. No effusion. Distal 1+ pitting edema and right lower leg. No erythema.) - Neuro Neuro: Alert and oriented X 3, No motor deficit, No sensory deficit - Psych Psych: Normal mood, Normal affect Results - Vitals Vitals: Oxygen O2 Source Room air PD Medical Decision Making - ED course Complexity details: reviewed results, re-evaluated patient, considered differential, d/w patient ED course: The patient was worked up with x-ray of the right knee, and treated with Tylenol at her request. The patient's x-rays were done and I reviewed them myself and felt that other than showing some joint space narrowing, they appear negative. However, the official read was still pending and the patient was signed out to Dr. Mosley, pending this. I anticipate the patient will be sent home with symptomatic management. Departure - Departure Disposition: 01 Home, Self Care Clinical Impression: Knee pain, right Condition: Stable Instructions: ED Knee Pain [facility] Comments: There were no concerning nor diagnostic findings on the x-rays of your knee performed tonight. The cause of your symptoms is not apparent at this time. Contact your primary care provider tomorrow morning when their office opens to arrange for next available appointment for follow-up/reevaluation. Forms: PCP List Discharge Date/Time: 11/28/23 00:05
--- NOTE | 2023-11-27 23:22 | XRAY Report ---
PROCEDURE: Knee 3V RT INDICATIONS: fall/pain TECHNIQUE: 3 views of the knee(s) were acquired. COMPARISON: 04/09/2023 FINDINGS: Bones: No fractures or dislocations. No suspicious bony lesions. Soft tissues: No knee joint effusion. No suspicious soft tissue calcifications or masses. IMPRESSION: No acute bony abnormality. Reviewed by: Jenifer Kohli MD on 11/27/2023 11:21 PM PST Approved by: Jenifer Kohli MD on 11/27/2023 11:21 PM PST Station ID: [id number]
--- NOTE | 2023-11-28 00:04 | ED Physician Documentation ---
ED Addendum - Addendum Addendum: 11/27/23 23:45 I received signout/turnover of care on this patient from Dr. Larson; please see her note for complete history and physical. In short, patient complains of right knee pain, possibly due to recent injury. At the time of signout, results of plain-film x-rays of the right knee are pending. These x-rays are interpreted by the radiologist as "no acute bony abnormality". I reviewed these results with the patient. I explained to her that, at this time, the cause of her symptoms is not apparent, but that she needs to follow-up with her primary care provider, next available appointment, for reevaluation. Further testing might be helpful/necessary, but further emergent testing is not indicated at this time. I discussed with her the option of an articulating knee brace; as I described this to her, she realized that she has this exact device at home already, and indicates to me that "that thing just makes my knee worse". She has a walker, and I encouraged her to minimize weight-bearing by using the walker. We discussed return precautions. I also asked her if she needed pain medication, but she says she has already been given Tylenol and does not want any narcotic pain medications. 11/28/23 03:41
[2023-11-28 00:22] VITALS: BP 180/86; O2SAT 93
== END 2023-11-28 00:05 | disposition home or self-care (01) ==
LOC: EDUNIT# → ED 21:12
DX: M25.561 Pain in right knee (principal); W19.XXXA Unspecified fall, initial encounter
CPT/HCPCS: 73562; 99283; A9270

== ENCOUNTER 2023-12-06 15:26 | Outpatient (CLI) | payer MEDICARE, OTHER ==
[2023-12-06 15:40] LABS: BASOPHILS # (AUTO) 0.1 10^3/uL (0.0-0.1); BASOPHILS % (AUTO) 1.6 %; EOSINOPHILS # (AUTO) 0.3 10^3/uL (0.0-0.7); EOSINOPHILS % (AUTO) 6.8 %; HCT - HEMATOCRIT 37.9 % (37.0-47.0); HGB - HEMOGLOBIN 11.7 g/dL (12.0-16.0); LYMPHOCYTES # (AUTO) 0.5 10^3/uL (1.5-3.5); LYMPHOCYTES % (AUTO) 12.7 %; MEAN CORPUSCULAR HGB CONC 30.9 g/dL (32.0-36.0); MEAN CORPUSCULAR VOLUME 100.5 fL (81.0-99.0); MEAN PLATELET VOLUME 9.8 fL (7.9-10.8); MONOCYTES # (AUTO) 0.5 10^3/uL (0.0-1.0); MONOCYTES % (AUTO) 12.4 %; NEUTROPHILS # (AUTO) 2.5 10^3/uL (1.5-6.6); NEUTROPHILS % (AUTO) 66.2 %; PLT - PLATELET COUNT 218 10^3/uL (130-450); RED BLOOD COUNT 3.77 10^6/uL (4.20-5.40); RED CELL DISTRIBUTION WIDTH 13.1 % (12.0-15.0); WHITE BLOOD COUNT 3.7 x10^3/uL (4.8-10.8)
[2023-12-06 16:16] LABS: ALBUMIN 4.2 g/dL (3.2-5.5); ALBUMIN/GLOBULIN RATIO 1.4 (1.0-2.2); ALKALINE PHOSPHATASE 117 IU/L (42-121); ALT ALANINE AMINOTRANSFERASE 9 IU/L (10-60); AST ASPARTATE AMINOTRANSFERASE 20 IU/L (10-42); BILIRUBIN,TOTAL 0.6 mg/dL (0.2-1.0); BUN - BLOOD UREA NITROGEN 31 mg/dL (6-20); CARBON DIOXIDE - CO2 33 mmol/L (21-32); CHLORIDE 99 mmol/L (101-111); CHOLESTEROL 252 mg/dL; GFR - MDRD 53 (>89); GLUCOSE 92 mg/dL (74-104); HDL CHOLESTEROL 83 mg/dL; LDL CHOLESTEROL,CALCULATED 146 mg/dL; LDL/HDL RATIO 1.8 (<4.4); POTASSIUM 4.4 mmol/L (3.5-4.5); SODIUM 137 mmol/L (135-145); TOTAL PROTEIN 7.1 g/dL (6.4-8.9); TRIGLYCERIDES 116 mg/dL (48-352); VLDL CHOLESTEROL 23 mg/dL
[2023-12-06 17:11] LABS: THYROID STIMULATING HORMONE 1.35 uIU/mL (0.34-5.60)
--- NOTE | 2023-12-09 11:35 | MRI Report ---
PROCEDURE: KNEE WO - RT INDICATIONS: RT KNEE PAIN TECHNIQUE: Noncontrast sagittal PD fast spin echo and T2 fast spin echo with fat saturation, sagittal 3-D spoile d GE with fat saturation; coronal T1 spin echo and PD fast spin echo with fat saturation, and axial P D fast spin echo with fat saturation through the knee. COMPARISON: Right knee radiographs 11/27/2023 FINDINGS: Image quality: Excellent. Anterior cruciate ligament: Intact. Posterior cruciate ligament: Intact. Medial collateral ligament: Intact. Lateral collateral ligament: Intact. Medial meniscus: Mild intrasubstance signal seen in the posterior horn and body of the medial menisc us that does not meet strict criteria for a meniscal tear. Lateral meniscus: Horizontal tearing of the body of the lateral meniscus extending to the free edge margin with uptake of [place] joint fluid. Medial and lateral tendons: The semimembranosus tendon insertions appear intact. Visualized portion s of the pes anserinus tendons appear normal. The popliteus tendon appears intact. Iliotibial band appears normal. Anterior structures: The patellar tendon and the distal quadriceps tendon appear intact. No patellar subluxation. No femoral trochlear dysplasia or ventral trochlear prominence. No edema in the infra patellar fat pad. Bones: There is a nondisplaced incomplete fracture at the lateral aspect of the proximal tibial meta physis. Surrounding osseous edema is seen throughout the proximal tibia. Medial femorotibial cartilage: Mild partial thickness cartilage thinning throughout the weightbearin g portion of the medial femorotibial compartment Lateral femorotibial cartilage: Mild to moderate partial-thickness cartilage thinning irregularity i n the weightbearing portion of the lateral femorotibial compartment. Patellofemoral cartilage: Mild partial thickness cartilage irregularity in the patellofemoral compar tment. Soft tissues: There is a medium-sized joint effusion. There is a small medial popliteal cyst. The m usculature surrounding the knee is normal in bulk. Nonspecific subcutaneous edema is seen surrounding the knee. IMPRESSION: 1.Nondisplaced incomplete fracture at the lateral portion of the proximal tibial metaphysis with surr ounding osseous edema. 2.Horizontal tearing of the body lateral meniscus extending to the free edge margin. 3.Intrasubstance degeneration in the medial meniscus without a discrete tear. 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 Mild grade II chondromalacia in the medial femorotibial and the patellofemoral compartments. 5.Cruciate and collateral ligaments are intact. 6.Small joint effusion. Small medial popliteal cyst. Reviewed by: Shlomo Luna MD on 12/09/2023 11:33 AM [facility] Approved by: Shlomo Luna MD on 12/09/2023 11:33 AM [facility] Station ID: [id number]
== END 2023-12-06 15:27 | disposition home or self-care (01) ==
LOC: DI 15:26
PROVIDERS: ATTEND Internal Medicine
DX: S82.201A Unspecified fracture of shaft of right tibia, initial encounter for closed fracture (principal); S83.281A Other tear of lateral meniscus, current injury, right knee, initial encounter; M23.303 Other meniscus derangements, unspecified medial meniscus, right knee; M94.261 Chondromalacia, right knee; M25.461 Effusion, right knee; M71.21 Synovial cyst of popliteal space [Baker], right knee; L65.9 Nonscarring hair loss, unspecified; D61.9 Aplastic anemia, unspecified; C18.9 Malignant neoplasm of colon, unspecified; R29.6 Repeated falls; Z85.828 Personal history of other malignant neoplasm of skin; L98.8 Other specified disorders of the skin and subcutaneous tissue; M19.90 Unspecified osteoarthritis, unspecified site; L82.1 Other seborrheic keratosis; R21 Rash and other nonspecific skin eruption; Z79.899 Other long term (current) drug therapy; R32 Unspecified urinary incontinence; R39.9 Unspecified symptoms and signs involving the genitourinary system; R53.1 Weakness; Z00.00 Encounter for general adult medical examination without abnormal findings
CPT/HCPCS: 36415; 80053; 80061; 83721; 84443; 85025

== ENCOUNTER 2025-03-05 12:11 | Inpatient (IN) ==
--- OUTSIDE RECORDS SUMMARY | 2025-03-05 13:00 | EXTERNAL MEDICAL SUMMARY RPT | Continuity of Care Document ---
Author Organization [facility] Address [address] [id number] Phone Problems date description facility 2024-12-07 07:23 Cardiomegaly [facility] 2024-12-07 07:23 Other specified abnormal findin gs of blood [facility]24-12-07 13:03 Unspecified severe protein-antonella iain malnutrition [facility] 2024-12-07 13:03 [facility]omegaly [facility] 2024-12-07 13:03 Peripheral vascular disease, un specified [facility] 2024-12-07 13:03 Venous insufficiency (chronic) (peripheral) [facility] 2024-12-07 13:03 [facility] 13:03 Local infection of t he skin and subcutaneous tissue, unspecified [facility] 2024-12-07 13:03 Non-pressure chronic ulcer of right ankle with fat layer exposed 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 2024-12-07 13:03 Pain in unspecified joint [facility] 2024-12-07 13:03 Pain in joints of right hand [facility] 2024-12-07 13:03 Pain in joints of left hand i dbey [facility] 2024-12-07 13:03 Other fatigue [facility] 2024-12-07 13:03 Localized edema [facility] 2024-12-07 13:03 Other specified abnormal findin gs of blood chemistry [facility] 2024-12-09 13:09 Unspecified severe protein-antonella iain malnutrition [facility] 2024-12-09 13:09 [facility]omegaly [facility] 2024-12-09 13:09 Peripheral vascular disease, un specified [facility] 2024-12-09 13:09 Venous insufficiency (chronic) (peripheral) [facility] 2024-12-09 13:09 Cellulitis of left lower limb [facility] 2024-12-09 13:09 Local infection of t he skin and subcutaneous tissue, unspecified 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 2024-12-09 13:09 Pain in unspecified joint [facility] 2024-12-09 13:09 Pain in joints of right hand [facility] 2024-12-09 13:09 Pain in joints of left hand i [employer] [facility] 2024-12-09 13:09 Other fatigue [facility] 2024-12-09 13:09 Localized edema [facility] 2024-12-09 13:09 Other specified abnormal findin gs of blood chemistry [facility] 2024-12-09 13:41 Unspecified severe protein-antonella iain malnutrition [facility] 2024-12-09 13:41 Cardiomegaly [facility] 2024-12-09 13:41 Peripheral vascular disease, un specified [facility] 2024-12-09 13:41 Venous insufficiency (chronic) (peripheral) 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 13:41 Pain in joints of right hand [facility] 2024-12-09 13:41 Pain in joints of left hand i [facility] 2024-12-09 13:41 Other fatigue [facility] 2024-12-09 13:41 [facility] 13:41 Other specified abnormal findin gs of blood chemistry [facility] 2024-12-09 14:57 Unspecified severe protein-antonella iain malnutrition [facility] 2024-12[facility]09 14:57 [facility] 2024-12-09 14:57 Peripheral vascular disease, un specified [facility] 2024-12-09 14:57 Venous insufficiency (chronic) (peripheral) [facility] 2024-12-09 14:57 Cellulitis of left lower limb [facility] 2024-12-09 14:57 Local infection of t he skin and subcutaneous tissue, unspecified [facility] 2024-12-09 14:57 Non-pressure chronic ulcer of right ankle with fat layer exposed 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 2024-12-09 14:57 Pain in unspecified joint [facility] 2024-12-09 14:57 [facility] joints of right hand [facility] 2024-12-09 14:57 Pain in joints of left hand [facility] 2024-12-09 14:57 Other fatigue [facility] 2024-12-09 14:57 [facility]ized [facility] 2024-12-09 14:57 Other specified abnormal findin gs of blood chemistry [facility] 2024-12-09 14:58 Unspecified severe protein-antonella iain malnutrition [facility] 2024-12-09 14:58 [facility]omegaly [facility] 2024-12-09 14:58 Peripheral vascular disease, un specified [facility] 2024-12-09 14:58 Venous insufficiency (chronic) (peripheral) [facility] 2024-12-09 14:58 Cellulitis of left lower limb [facility] 2024-12-09 14:58 Local infection of t he skin and subcutaneous tissue, unspecified 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 [facility] 2024-12-09 14:58 Pain in unspecified joint [facility] 2024-12-09 14:58 [facility] of right [facility] 14:58 Pain in joints of left hand i [facility] 2024-12-09 14:58 Other fatigue [facility] 2024-12-09 14:58 Localized edema [facility] 2024-12-09 14:58 Other specified abnormal findin gs of blood chemistry [facility] 2024-12-10 11:35 [facility] 2024-[facility]10 11:35 Other specified abnormal findin gs of blood chemistry [facility] 2024-12-10 11:38 [facility] 2024-12-10 11:38 Other specified abnormal findin gs of blood chemistry [facility] 2024-12-15 15:58 Unilateral primary osteoarthrit is, right knee [facility] 2024-12-16 00:03 Unilateral primary osteoarthrit is, right knee [facility] 2024-12-16 12:46 [facility]16 12:46 Other specified abnormal findin gs of blood chemistry [facility] 2024-12-17 00:[facility] 2024-12-17 00:01 Other specified abnormal findin gs of blood chemistry [facility] 2024-12-18 15:22 Unspecified severe protein-antonella iain malnutrition [facility] 2024-12-18 15:22 [facility] 2024-12-18 15:22 Peripheral vascular disease, un specified [facility] 2024-12-18 15:22 Venous insufficiency (chronic) (peripheral) [facility] 2024-12-18 15:22 [facility]itis of left lower limb [facility] 2024-12-18 15:22 Local infection of t he skin and subcutaneous tissue, unspecified [facility] 2024-12-18 15:22 Non-pressure chronic ulcer of right ankle with fat layer exposed [facility] 2024-12-18 15:22 Non-pressure chronic ulcer of other part of left lower leg with fat layer exposed [facility] 2024-12-18 15:22 Non-pressure chronic ulcer of unspecified part of left lower leg limited to breakdown of skin [facility] 2024-12-18 15:22 Pain in unspecified joint [facility] 2024-12-18 15:22 [facility] joints of right hand [facility] 2024-12-18 15:22 Pain in joints of left hand i [facility] 2024-12-18 15:22 Other fatigue [facility] 2024-12-18 15:22 Localized edema [facility] 2024-12-18 15:22 Other specified abnormal findin gs of blood chemistry [facility] 2024-12-18 15:52 Unspecified severe protein-antonella iain malnutrition [facility] 2024-12-18 15:52 Cardiomegaly [facility] 2024-12-18 15:52 Peripheral vascular disease, un specified [facility] 2024-12-18 15:52 Venous insufficiency (chronic) (peripheral) [facility] 2024-12-18 15:52 [facility] lower [facility] 15:52 Local infection of t he skin and subcutaneous tissue, unspecified [facility] 2024-12-18 15:52 Non-pressure chronic ulcer of right ankle with fat layer exposed [facility] 2024-12-18 15:52 Non-pressure chronic ulcer of other part of left lower leg with fat layer exposed [facility] 2024-12-18 15:52 Non-pressure chronic ulcer of unspecified part of left lower leg limited to breakdown of skin [facility] 2024-12-18 15:52 Pain in unspecified joint [facility] 2024-12-18 15:52 Pain in joints of right hand [facility] 2024-12-18 15:52 Pain in joints of left hand i [facility] 2024-12-18 15:52 Other fatigue [facility] 2024-12-18 15:52 Localized edema [facility] 2024-12-18 15:52 Other specified abnormal findin gs of blood chemistry [facility] 2024-12-24 13:04 Unspecified severe protein-antonella iain malnutrition [facility] 2024-12-24 13:04 Cardiomegaly [facility] 2024-12-24 13:04 Peripheral vascular disease, un specified [facility] 2024-12-24 13:04 Venous insufficiency (chronic) (peripheral) [facility] 2024-12-24 13:04 Cellulitis of left lower limb [facility] 2024-12-24 13:04 Local infection of t he skin and subcutaneous tissue, unspecified [facility] 2024-12-24 13:04 Non-pressure chronic ulcer of right ankle with fat layer exposed [facility] 2024-12-24 13:04 Non-pressure chronic ulcer of other part of left lower leg with fat layer exposed [facility] 2024-12-24 13:04 Non-pressure chronic ulcer of unspecified part of left lower leg limited to breakdown of skin [facility] 2024-12-24 13:04 Pain in unspecified joint [facility] 2024-12-24 13:04 Pain in joints of right hand [facility] 13:04 Pain in joints of left hand [facility] 2024-12-24 13:04 Other fatigue [facility] 2024-12-24 13:04 Localized edema [facility] 2024-12-24 13:04 Other specified abnormal findin gs of blood chemistry [facility] 2024-12-24 13:30 Unspecified severe protein-antonella iain malnutrition [facility] 2024-12-24 13:30 [facility]omegaly [facility] 2024-12-24 13:30 Peripheral vascular disease, un specified [facility] 2024-12-24 13:30 Venous insufficiency (chronic) (peripheral) [facility] 2024-12-24 13:30 Cellulitis of left lower limb [facility] 2024-12-24 13:30 Local infection of t he skin and subcutaneous tissue, unspecified [facility] 2024-12-24 13:30 Non-pressure chronic ulcer of right ankle with fat layer exposed [facility] 2024-12-24 13:30 Non-pressure chronic ulcer of other part of left lower leg with fat layer exposed 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 2024-12-24 13:30 Pain in unspecified joint [facility] 2024-12-24 13:30 Pain in joints of right hand [facility] 2024-12-24 13:30 Pain in joints of left hand i [facility] 2024-12-24 13:30 Other fatigue [facility] 2024-12-24 13:30 Localized edema [facility] 2024-12-24 13:30 Other specified abnormal findin gs of blood chemistry [facility] 2024-12-24 14:07 Unspecified severe protein-antonella iain malnutrition [facility] 2024-12-24 14:07 Cardiomegaly [facility] 2024-12-24 14:07 Peripheral vascular disease, un specified [facility] 2024-12-24 14:07 Venous insufficiency (chronic) (peripheral) [facility] 2024-12-24 14:07 [facility] lower [facility]24 14:07 Local infection of t he skin and subcutaneous tissue, unspecified [facility] 2024-12-24 14:07 Non-pressure chronic ulcer of right ankle with fat layer exposed 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 2024-12-24 14:07 Non-pressure chronic ulcer of unspecified part of left lower leg limited to breakdown of skin [facility] 2024-12-24 14:07 Pain in unspecified joint [facility] 2024-12-24 14:07 Pain in joints of right hand [facility] 2024-12-24 14:07 Pain in joints of left hand i [facility] 2024-12-24 14:07 Other fatigue [facility] 2024-12-24 14:07 Localized edema [facility] 2024-12-24 14:07 Other specified abnormal findin gs of blood chemistry [facility] 2024-12-31 13:42 Unspecified severe protein-antonella iain malnutrition [facility] 2024-12-31 13:42 Pulmonary hypertension, unspeci fied [facility] 2024-12-31 13:42 Unspecified diastolic (congesti ve) heart failure [facility] 2024-12-31 13:42 [facility]aly [facility] 2024-12-31 13:42 Peripheral vascular disease, un specified [facility] 2024-12-31 13:42 Venous insufficiency (chronic) (peripheral) [facility] 2024-12-31 13:42 Cellulitis of right lower limb [facility] 2024-12-31 13:42 Cellulitis of left lower limb [facility] 2024-12-31 13:42 Local infection of t he skin and subcutaneous tissue, unspecified [facility] 2024-12-31 13:42 Non-pressure chronic ulcer of right ankle with fat layer exposed [facility] 2024-12-31 13:42 Non-pressure chronic ulcer of other part of left lower leg with fat layer exposed [facility] 2024-12-31 13:42 Non-pressure chronic ulcer of unspecified part of left lower leg limited to breakdown of skin [facility] 2024-12-31 13:42 Pain in unspecified joint [facility] 2024-12-31 13:42 Pain in joints of right hand [facility] 2024-12[facility]31 13:42 Pain in joints of left hand [facility] 2024-12-31 13:42 Other fatigue [facility] 2024-12-31 13:42 Localized edema [facility] 2024-12-31 13:42 Other specified abnormal findin gs of blood chemistry [facility] 2024-12-31 13:55 Unspecified severe protein-antonella iain malnutrition [facility] 2024-12-31 13:55 Pulmonary hypertension, [facility]speci [facility] 2024-12-31 13:55 Unspecified diastolic (congesti ve) heart failure [facility] 2024-12-31 13:55 [facility]aly [facility] 2024-12-31 13:55 Peripheral vascular disease, un specified [facility] 2024-12-31 13:55 Venous insufficiency (chronic) (peripheral) [facility] 2024-12-31 13:55 Cellulitis of right lower limb [facility] 2024-12-31 13:55 Cellulitis of left lower limb [facility] 2024-12-31 13:55 Local infection of t he skin and subcutaneous tissue, unspecified [facility] 2024-12-31 13:55 Non-pressure chronic ulcer of right ankle with fat layer exposed [facility] 2024-12-31 13:55 Non-pressure chronic ulcer of other part of left lower leg with fat layer exposed [facility] 2024-12-31 13:55 Non-pressure chronic ulcer of unspecified part of left lower leg limited to breakdown of skin [facility] 2024-12-31 13:55 Pain in unspecified joint [facility] 2024-12-31 13:55 Pain [facility] joints of right hand [facility] 2024-12-31 13:55 Pain in joints of left hand i [facility] 2024-12-31 13:55 Other fatigue [facility] 2024-12-31 13:55 Localized edema [facility] 2024-12-31 13:55 Other specified abnormal findin gs of blood chemistry [facility] 2025-01-05 12:15 Unspecified severe protein-antonella iain malnutrition [facility] 2025-01-05 12:15 Pulmonary hypertension, unspeci fied [facility] 2025-01-05 12:15 Unspecified diastolic (congesti ve) heart failure [facility] 2025-01-05 12:15 Acute on chronic com bined systolic (congestive) and diastolic (congestive) heart failure [facility] 2025-01-05 12:15 Cardiomegaly [facility] 2025-01-05 12:15 Peripheral vascular disease, un specified [facility] 2025-01-05 12:15 Venous insufficiency (chronic) (peripheral) [facility] 2025-01-05 12:15 Cellulitis of right lower limb [facility] 2025-01-05 12:15 Cellulitis of left lower limb [facility] 2025-01-05 12:15 Local infection of t he skin and subcutaneous tissue, unspecified [facility] 2025-01-05 12:15 Non-pressure chronic ulcer of right ankle with fat layer exposed [facility] 2025-01-05 12:15 Non-pressure chronic ulcer of other part of left lower leg with fat layer exposed [facility] 2025-01-05 12:15 Non-pressure chronic ulcer of unspecified part of left lower leg limited to breakdown of skin [facility] 2025-01-05 12:15 Pain in unspecified joint [facility] 2025-01-05 12:15 Pain in joints of right hand [facility] 2025-01-05 12:15 Pain in joints of left hand i [facility] 2025-01-05 12:15 Other fatigue [facility] 2025-01-05 12:15 Localized edema [facility] 2025-01-05 12:15 Other specified abnormal findin gs of blood chemistry [facility] 2025-01-06 16:06 Unspecified severe protein-antonella iain malnutrition [facility] 2025-01-06 16:06 Pulmonary hypertension, unspeci fied APROOFED 2025-01-06 16:06 Unspecified diastolic (congesti ve) heart failure APROOFED 2025-01-06 16:06 Acute on chronic com bined systolic (congestive) and diastolic (congestive) heart failure APROOFED 2025-01-06 16:06 Cardiomegaly APROOFED 2025-01-06 16:06 Peripheral vascular disease, un specified APROOFED 2025-01-06 16:06 Venous insufficiency (chronic) (peripheral) APROOFED 2025-01-06 16:06 Cellulitis of right lower limb APROOFED 2025-01-06 16:06 Cellulitis of left lower limb [facility] 2025-01-06 16:06 Local infection of t he skin and subcutaneous tissue, unspecified APROOFED 2025-01-06 16:06 Non-pressure chronic ulcer of right ankle with fat layer exposed APROOFED 2025-01-06 16:06 Non-pressure chronic ulcer of other part of left lower leg with fat layer exposed [facility]06 16:06 Non-pressure chronic ulcer of unspecified part of left lower leg limited to breakdown of skin [facility] 2025-01-06 16:06 Pain in unspecified joint [facility] 2025-01[facility]06 16:06 [facility] joints of right hand [facility]06 16:06 Pain in joints of left hand i [facility] 2025-01-06 16:06 Other fatigue [facility] 2025-01-06 16:06 Localized edema [facility] 2025-01-06 16:06 Other specified abnormal findin gs of blood chemistry [facility] 2025-01-07 13:06 Unspecified severe protein-antonella iain malnutrition [facility] 2025-01-07 13:06 Pulmonary hypertension, unspeci fied [facility] 2025-01-07 13:06 Unspecified diastolic (congesti ve) heart failure [facility] 2025-01-07 13:06 Acute on chronic com bined systolic (congestive) and diastolic (congestive) heart failure [employer] 2025-01-07 13:06 Cardiomegaly [facility] 2025-01-07 13:06 Peripheral vascular disease, un specified [facility] 2025-01-07 13:06 Venous insufficiency (chronic) (peripheral) [facility] 2025-01-07 13:06 Cellulitis of right lower limb [facility] 2025-01-07 13:06 [facility] lower [facility] 13:06 Local infection of t he skin and subcutaneous tissue, unspecified [facility] 2025-01-07 13:06 Non-pressure chronic ulcer of right ankle with fat layer exposed [employer] 2025-01-07 13:06 Non-pressure chronic ulcer of other part of left lower leg with fat layer exposed [facility] 2025-01-07 13:06 Non-pressure chronic ulcer of unspecified part of left lower leg limited to breakdown of skin [facility] 2025-01-07 13:06 Pain in unspecified joint [employer] 2025-01-07 13:06 Pain in joints of right hand APROOFED 2025-01-07 13:06 Pain in joints of left hand i [employer] 2025-01-07 13:06 Other fatigue APROOFED 2025-01-07 13:06 Localized edema [facility] 2025-01-07 13:06 Other specified abnormal findin gs of blood chemistry [facility] 2025-01-07 14:13 Unspecified severe protein-antonella iain malnutrition [facility] 2025-01-07 14:13 Pulmonary hypertension, unspeci fied APROOFED 2025-01-07 14:13 Unspecified diastolic (congesti ve) heart failure [facility] 2025-01-07 14:13 Acute on chronic com bined systolic (congestive) and diastolic (congestive) heart failure APROOFED 2025-01-07 14:13 Cardiomegaly [facility] 2025-01-07 14:13 Peripheral vascular disease, un specified [facility] 2025-01-07 14:13 Venous insufficiency (chronic) (peripheral) [facility] 2025-01-07 14:13 Cellulitis of right lower limb APROOFED 2025-01-07 14:13 [facility] lower [facility] 14:13 Local infection of t he skin and subcutaneous tissue, unspecified [facility] 2025-01-07 14:13 Non-pressure chronic ulcer of right ankle with fat layer exposed APROOFED 2025-01-07 14:13 Non-pressure chronic ulcer of other part of left lower leg with fat layer exposed [facility] 2025-01-07 14:13 Non-pressure chronic ulcer of unspecified part of left lower leg limited to breakdown of skin [facility] 2025-01-07 14:13 Pain in unspecified joint [employer] 2025-01-07 14:13 Pain in joints of right hand APROOFED 2025-01-07 14:13 Pain in joints of left hand [facility] [employer] 2025-01-07 14:13 Other fatigue APROOFED 2025-01-07 14:13 Localized edema [facility] 2025-01-07 14:13 Other specified abnormal findin gs of blood chemistry [facility] 2025-01-07 15:26 Unspecified severe protein-antonella iain malnutrition [facility] 2025-01-07 15:26 Pulmonary hypertension, unspeci fied [facility] 2025-01-07 15:26 Unspecified diastolic (congesti ve) heart failure [facility] 2025-01-07 15:26 Acute on chronic com bined systolic (congestive) and diastolic (congestive) heart failure [facility] 2025-01-07 15:26 [facility]omegaly [facility] 2025-01-07 15:26 Peripheral vascular disease, un specified [facility] 2025-01-07 15:26 Venous insufficiency (chronic) (peripheral) [facility] 2025-01-07 15:26 Cellulitis of right lower limb [facility] 2025-01-07 15:26 [facility]ulitis of left lower limb [facility]25-[facility]-07 15:26 Local infection of t he skin and subcutaneous tissue, unspecified [facility] 2025-01-07 15:26 Non-pressure chronic ulcer of right ankle with fat layer exposed [facility] 2025-01-07 15:26 Non-pressure chronic ulcer of other part of left lower leg with fat layer exposed [facility] 2025-01-07 15:26 Non-pressure chronic ulcer of unspecified part of left lower leg limited to breakdown of skin [facility] 2025-01-07 15:26 Pain in unspecified joint [facility] 2025-01-07 15:26 Pain in joints of right hand [facility] 2025-01-07 15:26 Pain in joints of left hand i dbey Arrogene 2025-01-07 15:26 Other fatigue [facility] 2025-01-07 15:26 Localized edema [facility] 2025-01-07 15:26 Other specified abnormal findin gs of blood chemistry [facility] 2025-01-08 10:58 Unspecified severe protein-antonella iain malnutrition [facility] 2025-01-08 10:58 Pulmonary hypertension, unspeci fied [facility] 2025-01-08 10:58 Unspecified diastolic (congesti ve) heart failure [facility] 2025-01-08 10:58 Acute on chronic com bined systolic (congestive) and diastolic (congestive) heart failure [facility] 2025-01-08 10:58 Cardiomegaly [facility] 2025-01-08 10:58 Peripheral vascular disease, un specified [facility] 2025-01-08 10:58 Venous insufficiency (chronic) (peripheral) [facility] 2025-01-08 10:58 Cellulitis of right lower limb [facility] 2025-01-08 10:58 [facility]itis of left lower limb [facility] 2025-01-08 10:58 Local infection of t he skin and subcutaneous tissue, unspecified [facility] 2025-01-08 10:58 Non-pressure chronic ulcer of right ankle with fat layer exposed [facility] 2025-01-08 10:58 Non-pressure chronic ulcer of other part of left lower leg with fat layer exposed [facility] 2025-01-08 10:58 Non-pressure chronic ulcer of unspecified part of left lower leg limited to breakdown of skin [facility] 2025-01-08 10:58 Pain in unspecified joint [facility] 2025-01-08 10:58 Pain in joints of right hand [facility] 2025-01-08 10:58 Pain in joints of left hand [facility] 2025-01-08 10:58 Other fatigue [facility] 2025-01-08 10:58 Localized edema [facility] 2025-01-08 10:58 Other specified abnormal findin gs of blood chemistry [facility] 2025-01-14 13:10 Unspecified severe protein-antonella iain malnutrition [facility] 2025-01-14 13:10 Pulmonary hypertension, unspeci fied [facility] 2025-01-14 13:10 Unspecified diastolic (congesti ve) heart failure [facility] 2025-01-14 13:10 Acute on chronic com bined systolic (congestive) and diastolic (congestive) heart failure [facility] 2025-01-14 13:10 Cardiomegaly [facility] 2025-01-14 13:10 Peripheral vascular disease, un specified [facility] 2025-01-14 13:10 Venous insufficiency (chronic) (peripheral) [facility] 2025-01-14 13:10 Cellulitis of right lower limb [facility] 2025-01-14 13:10 Cellulitis of left lower limb [facility] 2025-01-14 13:10 Local infection of t he skin and subcutaneous tissue, unspecified [facility] 2025-01-14 13:10 Non-pressure chronic ulcer of right ankle with fat layer exposed [facility] 2025-01-14 13:10 Non-pressure chronic ulcer of other part of left lower leg with fat layer exposed [facility] 2025-01-14 13:10 Non-pressure chronic ulcer of unspecified part of left lower leg limited to breakdown of skin [facility] 2025-01-14 13:10 Pain in unspecified joint [facility] 2025-01-14 13:10 [facility] in joints of right hand [facility]25-[facility]14 13:10 Pain in joints of left hand [facility] 2025-01-14 13:10 Other fatigue [facility] 2025-01-14 13:10 Localized edema [facility] 2025-01-14 13:10 Other specified abnormal findin gs of blood chemistry [facility] 2025-01-14 13:52 Unspecified severe protein-antonella iain malnutrition [facility] 2025-01-14 13:52 Pulmonary hypertension, unspeci fied [facility] 2025-01-14 13:52 Unspecified diastolic (congesti ve) heart failure [facility] 2025-01-14 13:52 Acute on chronic com bined systolic (congestive) and diastolic (congestive) heart failure [facility] 2025-01-14 13:52 Cardiomegaly [facility] 2025-01-14 13:52 Peripheral vascular disease, un specified [facility] 2025-01-14 13:52 Venous insufficiency (chronic) (peripheral) [facility] 2025-01-14 13:52 Cellulitis of right lower limb [facility] 2025-01-14 13:52 Cellulitis of left lower limb W [facility] 2025-01-14 13:52 Local infection of t he skin and subcutaneous tissue, unspecified [facility] 2025-01-14 13:52 Non-pressure chronic ulcer of right ankle with fat layer exposed [facility] 2025-01-14 13:52 Non-pressure chronic ulcer of other part of left lower leg with fat layer exposed [facility] 2025-01-14 13:52 Non-pressure chronic ulcer of unspecified part of left lower leg limited to breakdown of skin [facility] 2025-01-14 13:52 Pain in unspecified joint idb ey Arrogen[facility] 2025-01-14 13:52 Pain in joints of right hand [facility] 2025-01-14 13:52 Pain in joints of left hand i dbey Arrogene 2025-01-14 13:52 Other fatigue [facility] 2025-01-14 13:52 Localized edema [facility] 2025-01-14 13:52 Other specified abnormal findin gs of blood chemistry [facility] 2025-01-14 15:40 Unspecified severe protein-antonella iain malnutrition [facility] 2025-01-14 15:40 Pulmonary hypertension, unspeci fied [facility] 2025-01-14 15:40 Unspecified diastolic (congesti ve) heart failure [facility] 2025-01-14 15:40 Acute on chronic com bined systolic (congestive) and diastolic (congestive) heart failure [facility] 2025-01-14 15:40 Cardiomegaly [facility] 2025-01-14 15:40 Peripheral vascular disease, un specified [facility] 2025-01-14 15:40 Venous insufficiency (chronic) (peripheral) [facility] 2025-01-14 15:40 Cellulitis of right lower limb [facility] 2025-01-14 15:40 Cellulitis of left lower limb [facility] 2025-01-14 15:40 Local infection of t he skin and subcutaneous tissue, unspecified [facility] 2025-01-14 15:40 Non-pressure chronic ulcer of right ankle with fat layer exposed [facility] 2025-01-14 15:40 Non-pressure chronic ulcer of other part of left lower leg with fat layer exposed [facility] 2025-01-14 15:40 Non-pressure chronic ulcer of unspecified part of left lower leg limited to breakdown of skin [facility] 2025-01-14 15:40 Pain in unspecified joint [facility] 2025-01-14 15:40 Pain in joints of right hand [facility] 2025-01-14 15:40 Pain in joints of left hand [facility] 2025-01-14 15:40 Other fatigue [facility] 2025-01-14 15:40 Localized edema [facility] 2025-01-14 15:40 Other specified abnormal findin gs of blood chemistry [facility] 2025-01-14 15:41 Unspecified severe protein-antonella iain malnutrition [facility] 2025-01-14 15:41 Pulmonary hypertension, unspeci fied [facility] 2025-01-14 15:41 Unspecified diastolic (congesti ve) heart failure [facility] 2025-01-14 15:41 Acute on chronic com bined systolic (congestive) and diastolic (congestive) heart failure [facility] 2025-01-14 15:41 Cardiomegaly [facility] 2025-01-14 15:41 Peripheral vascular disease, un specified [facility] 2025-01-14 15:41 Venous insufficiency (chronic) (peripheral) [facility] 2025-01-14 15:41 Cellulitis of right lower limb [facility] 2025-01-14 15:41 [facility] 15:41 Local infection of t he skin and subcutaneous tissue, unspecified [facility] 2025-01-14 15:41 Non-pressure chronic ulcer of right ankle with fat layer exposed [facility] 2025-01-14 15:41 Non-pressure chronic ulcer of other part of left lower leg with fat layer exposed [facility] 2025-01-14 15:41 Non-pressure chronic ulcer of unspecified part of left lower leg limited to breakdown of skin [facility] 2025-01-14 15:41 Pain in unspecified joint [facility] 2025-01-14 15:41 Pain in joints of right hand [facility] 2025-01-14 15:41 Pain in joints of left hand i [employer] 2025-01-14 15:41 Other fatigue [facility] 2025-01-14 15:41 Localized edema [facility] 2025-01-14 15:41 Other specified abnormal findin gs of blood chemistry [facility] 2025-01-27 09:33 Unspecified severe protein-antonella iain malnutrition [facility] 2025-01-27 09:33 Pulmonary hypertension, unspeci fied [facility] 2025-01-27 09:33 Unspecified diastolic (congesti ve) heart failure [facility] 2025-01-27 09:33 Acute on chronic com bined systolic (congestive) and diastolic (congestive) heart failure [facility] 2025-01-27 09:33 Cardiomegaly [facility] 2025-01-27 09:33 Peripheral vascular disease, un specified [facility] 2025-01-27 09:33 Venous insufficiency (chronic) (peripheral) [facility] 2025-01-27 09:33 Cellulitis of right lower limb [facility] 2025-01-27 09:33 [facility]27 09:33 Local infection of t he skin and subcutaneous tissue, unspecified [facility] 2025-01-27 09:33 Non-pressure chronic ulcer of right ankle with fat layer exposed [facility] 2025-01-27 09:33 Non-pressure chronic ulcer of other part of left lower leg with fat layer exposed [facility] 2025-01-27 09:33 Non-pressure chronic ulcer of unspecified part of left lower leg limited to breakdown of skin [facility] 2025-01-27 09:33 Pain in unspecified joint [facility] [employer] 2025-01-27 09:33 Pain in joints of right hand [facility] 2025-01-27 09:33 Pain in joints of left hand [facility] [employer] 2025-01-27 09:33 Other fatigue [facility] 2025-01-27 09:33 Localized edema [facility] 2025-01-27 09:33 Other specified abnormal findin gs of blood chemistry [facility] 2025-01-27 15:26 Unspecified severe protein-antonella iain malnutrition [facility] 2025-01-27 15:26 Pulmonary hypertension, [facility] [facility]25-01-27 15:26 Unspecified diastolic (congesti ve) heart failure [facility] 2025-01-27 15:26 Acute on chronic com bined systolic (congestive) and diastolic (congestive) heart failure [facility] 2025-01-27 15:26 [facility]galy [facility] 2025-01-27 15:26 Peripheral vascular disease, un specified [facility]25-01-27 15:26 Venous insufficiency (chronic) (peripheral) [facility] 2025-01-27 15:26 Cellulitis of right lower limb [facility] 2025-01-27 15:26 [facility]25-[facility]-27 15:26 Local infection of t he skin and subcutaneous tissue, unspecified [facility] 2025-01-27 15:26 Non-pressure chronic ulcer of right ankle with fat layer exposed [facility] 2025-01-27 15:26 Non-pressure chronic ulcer of other part of left lower leg with fat layer exposed [facility] 2025-01-27 15:26 Non-pressure chronic ulcer of unspecified part of left lower leg limited to breakdown of skin [facility] 2025-01-27 15:26 Pain in unspecified joint [facility] 2025-01-27 15:26 [facility] in joints of right hand [facility] 2025-01-27 15:26 Pain in joints of left hand [facility] 2025-01-27 15:26 Other fatigue [facility] 2025-01-27 15:26 Localized edema [facility] 2025-01-27 15:26 Other specified abnormal findin gs of blood chemistry [facility] 2025-01-27 15:44 Unspecified severe protein-antonella iain malnutrition [facility] 2025-01-27 15:44 Pulmonary hypertension, unspeci fiPrem[facility] CenterP[facility] 2025-01-27 15:44 Unspecified diastolic (congesti ve) heart failure [facility] 2025-01-27 15:44 Acute on chronic com bined systolic (congestive) and diastolic (congestive) heart failure [facility] 2025-01-27 15:44 Cardiomegaly [facility] 2025-01-27 15:44 Peripheral vascular disease, un specified [facility] 2025-01-27 15:44 Venous insufficiency (chronic) (peripheral) [facility] 2025-01-27 15:44 Cellulitis of right lower limb [facility] 2025-01-27 15:44 [facility] of left lower limb [facility]25-[facility]27 15:44 Local infection of t he skin and subcutaneous tissue, unspecified [facility] 2025-01-27 15:44 Non-pressure chronic ulcer of right ankle with fat layer exposed [facility] 2025-01-27 15:44 Non-pressure chronic ulcer of other part of left lower leg with fat layer exposed [facility] 2025-01-27 15:44 Non-pressure chronic ulcer of unspecified part of left lower leg limited to breakdown of skin [facility] 2025-01-27 15:44 Pain in unspecified joint [facility] 2025-01-27 15:44 Pain in joints of right hand [facility] 2025-01-27 15:44 Pain in joints of left hand [facility] 2025-01-27 15:44 Other fatigue [facility] 2025-01-27 15:44 Localized edema [facility] 2025-01-27 15:44 Other specified abnormal findin gs of blood chemistry [facility] 2025-02-02 09:59 Unspecified severe protein-antonella iani malnutrition [facility] 2025-02-02 09:59 Pulmonary hypertension, unspeci fied [facility] 2025-02-02 09:59 Unspecified diastolic (congesti ve) heart failure [facility] 2025-02-02 09:59 Acute on chronic com bined systolic (congestive) and diastolic (congestive) heart failure [facility] 2025-02-02 09:59 Cardiomegaly [facility] 2025-02-02 09:59 Peripheral vascular disease, un specified [facility] 2025-02-02 09:59 Venous insufficiency (chronic) (peripheral) [facility] 2025-02-02 09:59 Cellulitis of right lower limb [facility] 2025-02-02 09:59 Cellulitis of left lower limb [facility] 2025-02-02 09:59 Local infection of t he skin and subcutaneous tissue, unspecified [facility] 2025-02-02 09:59 Non-pressure chronic ulcer of right ankle with fat layer exposed [facility] 2025-02-02 09:59 Non-pressure chronic ulcer of other part of left lower leg with fat layer exposed [facility] 2025-02-02 09:59 Non-pressure chronic ulcer of unspecified part of left lower leg limited to breakdown of skin [facility] 2025-02-02 09:59 Pain in unspecified joint [facility] 2025-02-02 09:59 Pain in joints of right hand [facility] 2025-02-02 09:59 Pain in joints of left hand [facility] 2025-02-02 09:59 Other fatigue [facility] 2025-02-02 09:59 Localized edema [facility] 2025-02-02 09:59 Other specified abnormal findin gs of blood chemistry [facility] 2025-02-03 14:27 Unspecified severe protein-antonella iain malnutrition [facility] 2025-02-03 14:27 Pulmonary hypertension, unspeci fied [facility] 2025-02-03 14:27 Unspecified diastolic (congesti ve) heart failure [facility] 2025-02-03 14:27 Acute on chronic com bined systolic (congestive) and diastolic (congestive) heart failure [facility] 2025-02-03 14:27 Cardiomegaly [facility] 2025-02-03 14:27 Peripheral vascular disease, un specified [facility] 2025-02-03 14:27 Venous insufficiency (chronic) (peripheral) [facility] 2025-02-03 14:27 Cellulitis of right lower limb [facility] 2025-02-03 14:27 Cellulitis of left lower limb [facility] 2025-02-03 14:27 Local infection of t he skin and subcutaneous tissue, unspecified [facility] 2025-02-03 14:27 Non-pressure chronic ulcer of right ankle with fat layer exposed [facility] 2025-02-03 14:27 Non-pressure chronic ulcer of other part of left lower leg with fat layer exposed [facility] 2025-02-03 14:27 Non-pressure chronic ulcer of unspecified part of left lower leg limited to breakdown of skin [facility] 2025-02-03 14:27 Pain in unspecified joint [facility] 2025-02-03 14:27 Pain in joints of right hand [facility] 2025-02-03 14:27 Pain in joints of left hand [facility]bey [facility] 2025-02-03 14:27 Other fatigue [facility] 2025-02-03 14:27 Localized edema [facility] 2025-02-03 14:27 Other specified abnormal findin gs of blood chemistry [facility] 2025-02-03 14:39 Unspecified severe protein-antonella iain malnutrition [facility] 2025-02-03 14:39 Pulmonary hypertension, unspeci fied [facility] 2025-02-03 14:39 Unspecified diastolic (congesti ve) heart failure [facility] 2025-02-03 14:39 Acute on chronic com bined systolic (congestive) and diastolic (congestive) heart failure [facility] 2025-02-03 14:39 Cardiomegaly [facility] 2025-02-03 14:39 Peripheral vascular disease, un specified [facility] 2025-02-03 14:39 Venous insufficiency (chronic) (peripheral) [facility] 2025-02-03 14:39 Cellulitis of right lower limb [facility] 2025-02-03 14:39 Cellulitis of left lower limb [facility] 2025-02-03 14:39 Local infection of t he skin and subcutaneous tissue, unspecified [facility] 2025-02-03 14:39 Non-pressure chronic ulcer of right ankle with fat layer exposed [facility] 2025-02-03 14:39 Non-pressure chronic ulcer of other part of left lower leg with fat layer exposed [facility] 2025-02-03 14:39 Non-pressure chronic ulcer of unspecified part of left lower leg limited to breakdown of skin [facility] 2025-02-03 14:39 Pain in unspecified joint [facility] 2025-02-03 14:39 Pain in joints of right hand [facility] 2025-02-03 14:39 Pain in joints of left hand [facility] 2025-02-03 14:39 Other fatigue [facility] 2025-02-03 14:39 Localized edema [facility] 2025-02-03 14:39 Other specified abnormal findin gs of blood chemistry [facility] 2025-02-03 16:13 Unspecified severe protein-antonella iain malnutrition [facility] 2025-02-03 16:13 Pulmonary hypertension, unspeci fied [facility] 2025-02-03 16:13 Unspecified diastolic (congesti ve) heart failure [facility] 2025-02-03 16:13 Acute on chronic com bined systolic (congestive) and diastolic (congestive) heart failure [facility] 2025-02-03 16:13 Cardiomegaly [facility] 2025-02-03 16:13 Peripheral vascular disease, un specified [facility] 2025-02-03 16:13 Venous insufficiency (chronic) (peripheral) [facility] 2025-02-03 16:13 Cellulitis of right lower limb [facility] 2025-02-03 16:13 [facility] lower [facility] 16:13 Local infection of t he skin and subcutaneous tissue, unspecified [facility] 2025-02-03 16:13 Non-pressure chronic ulcer of right ankle with fat layer exposed [facility] 2025-02-03 16:13 Non-pressure chronic ulcer of other part of left lower leg with fat layer exposed [facility] 2025-02-03 16:13 Non-pressure chronic ulcer of unspecified part of left lower leg limited to breakdown of skin [facility] 2025-02-03 16:13 Pain in unspecified joint [facility] 2025-02-03 16:13 Pain in joints of right hand [facility] 2025-02-03 16:13 Pain in joints of left hand i [facility] 2025-02-03 16:13 Other fatigue [facility] 2025-02-03 16:13 Localized edema [facility] 2025-02-03 16:13 Other specified abnormal findin gs of blood chemistry [facility] 2025-02-03 16:14 Unspecified severe protein-antonella iain malnutrition [facility] 2025-02-03 16:14 Pulmonary hypertension, unspeci fied [facility] 2025-02-03 16:14 Unspecified diastolic (congesti ve) heart failure [facility] 2025-02-03 16:14 Acute on chronic com bined systolic (congestive) and diastolic (congestive) heart failure [facility] 2025-02-03 16:14 Cardiomegaly [facility] 2025-02-03 16:14 Peripheral vascular disease, un specified [facility] 2025-02-03 16:14 Venous insufficiency (chronic) (peripheral) [facility] 2025-02-03 16:14 Cellulitis of right lower limb [facility] 2025-02-03 16:14 [facility] lower [facility]25-02-03 16:14 Local infection of t he skin and subcutaneous tissue, unspecified [facility] 2025-02-03 16:14 Non-pressure chronic ulcer of right ankle with fat layer exposed [facility] 2025-02-03 16:14 Non-pressure chronic ulcer of other part of left lower leg with fat layer exposed [facility] 2025-02-03 16:14 Non-pressure chronic ulcer of unspecified part of left lower leg limited to breakdown of skin [facility] 2025-02-03 16:14 Pain in unspecified joint [facility] 2025-02-03 16:14 Pain in joints of right hand [facility] 2025-02-03 16:14 Pain in joints of left hand [facility] 2025-02-03 16:14 Other fatigue [facility] 2025-02-03 16:14 Localized edema [facility] 2025-02-03 16:14 Other specified abnormal findin gs of blood chemistry [facility] 2025-02-10 15:26 Non-pressure chronic ulcer of right ankle with fat layer exposed [facility] 2025-02-10 15:29 Non-pressure chronic ulcer of right ankle with fat layer exposed [facility] 2025-02-11 00:02 Non-pressure chronic ulcer of right ankle with fat layer exposed [facility] 2025-02-11 14:36 Unspecified severe protein-antonella iain malnutrition [facility] 2025-02-11 14:36 Pulmonary hypertension, unspeci fied [facility] 2025-02-11 14:36 Unspecified diastolic (congesti ve) heart failure [facility] 2025-02-11 14:36 Acute on chronic com bined systolic (congestive) and diastolic (congestive) heart failure [facility] 2025-02-11 14:36 Cardiomegaly [facility] 2025-02-11 14:36 Peripheral vascular disease, un specified [facility] 2025-02-11 14:36 Venous insufficiency (chronic) (peripheral) [facility] 2025-02-11 14:36 Cellulitis of right lower limb [facility] 2025-02-11 14:36 [facility] lower [facility]11 14:36 Local infection of t he skin and subcutaneous tissue, unspecified [facility] 2025-02-11 14:36 Non-pressure chronic ulcer of right ankle with fat layer exposed [facility] 2025-02-11 14:36 Non-pressure chronic ulcer of other part of left lower leg with fat layer exposed [facility] 2025-02-11 14:36 Non-pressure chronic ulcer of unspecified part of left lower leg limited to breakdown of skin [facility] 2025-02-11 14:36 Pain in unspecified joint [facility] 2025-02-11 14:36 Pain in joints of right hand [facility] 2025-02-11 14:36 Pain in joints of left hand [facility] 2025-02-11 14:36 Other fatigue [facility] 2025-02-11 14:36 Localized edema [facility] 2025-02-11 14:36 Other specified abnormal findin gs of blood chemistry [facility] 2025-02-11 14:55 Unspecified severe protein-antonella iain malnutrition [facility] 2025-02-11 14:55 Pulmonary hypertension, unspeci fiWellSpan [facility] HospitalNaked[facility] 2025-02-11 14:55 Unspecified diastolic (congesti ve) heart failure [facility] 2025-02-11 14:55 Acute on chronic com bined systolic (congestive) and diastolic (congestive) heart failure [facility] 2025-02-11 14:55 Cardiomegaly [facility] 2025-02-11 14:55 Peripheral vascular disease, un specified [facility] 2025-02-11 14:55 Venous insufficiency (chronic) (peripheral) [facility] 2025-02-11 14:55 Cellulitis of right lower limb [facility] 2025-02-11 14:55 [facility] left lower limb [facility] 2025-02-11 14:55 Local infection of t he skin and subcutaneous tissue, unspecified [facility] 2025-02-11 14:55 Non-pressure chronic ulcer of right ankle with fat layer exposed 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 2025-02-11 14:55 Non-pressure chronic ulcer of unspecified part of left lower leg limited to breakdown of skin [facility] 2025-02-11 14:55 Pain in unspecified joint [facility] 2025-02-11 14:55 Pain in joints of right hand [facility] 2025-02-11 14:55 Pain in joints of left hand i db [facility] 2025-02-11 14:55 Other fatigue [facility] 2025-02-11 14:55 Localized edema [facility] 2025-02-11 14:55 Other specified abnormal findin gs of blood chemistry [facility] 2025-02-19 15:23 Unspecified severe protein-antonella iain malnutrition [facility] 2025-02-19 15:23 Pulmonary hypertension, unspeci fiPremier Health [facility] CenterPental[facility] 2025-02-19 15:23 Unspecified diastolic (congesti ve) heart failure [facility] 2025-02-19 15:23 Acute on chronic com bined systolic (congestive) and diastolic (congestive) heart failure [facility] 2025-02-19 15:23 Cardiomegaly [facility] 2025-02-19 15:23 Peripheral vascular disease, un specified [facility] 2025-02-19 15:23 Venous insufficiency (chronic) (peripheral) [facility] 2025-02-19 15:23 Cellulitis of right lower limb [facility] 2025-02-19 15:23 [facility] of left lower limb [facility] 2025-[facility]19 15:23 Local infection of t he skin and subcutaneous tissue, unspecified [facility] 2025-02-19 15:23 Non-pressure chronic ulcer of right ankle with fat layer exposed 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 2025-02-19 15:23 Non-pressure chronic ulcer of unspecified part of left lower leg limited to breakdown of skin [facility] 2025-02-19 15:23 Pain in unspecified joint [facility] 2025-02-19 15:23 Pain in joints of right hand [facility] 2025-02-19 15:23 Pain in joints of left hand [facility] 2025-02-19 15:23 Other fatigue [facility] 2025-02-19 15:23 Localized edema [facility] 2025-02-19 15:23 Other specified abnormal findin gs of blood chemistry [facility] 2025-02-19 16:00 Unspecified severe protein-antonella iain malnutrition [facility] 2025-02-19 16:00 Pulmonary hypertension, unspeci fied [facility] 2025-02-19 16:00 Unspecified diastolic (congesti ve) [facility] 16:00 Acute on chronic com bined systolic (congestive) and diastolic (congestive) heart failure [facility] 2025-02-19 16:00 Cardiomegaly [facility] 2025-02-19 16:00 Peripheral vascular disease, un specified [facility] 2025-02-19 16:00 Venous insufficiency (chronic) (peripheral) [facility] 2025-02-19 16:00 Cellulitis of right lower limb [facility] 2025-02-19 16:00 Cellulitis of left lower limb [facility] 2025-02-19 16:00 Local infection of t he skin and subcutaneous tissue, unspecified [facility] 2025-02-19 16:00 Non-pressure chronic ulcer of right ankle with fat layer exposed [facility] 2025-02-19 16:00 Non-pressure chronic ulcer of other part of left lower leg with fat layer exposed [facility] 2025-02-19 16:00 Non-pressure chronic ulcer of unspecified part of left lower leg limited to breakdown of skin [facility] 2025-02-19 16:00 Pain in unspecified joint [facility] 2025-02-19 16:00 [facility] joints of right hand [facility]25-02-19 16:00 Pain in joints of left hand [facility] 2025-02-19 16:00 Other fatigue [facility] 2025-02-19 16:00 Localized edema [facility] 2025-02-19 16:00 Other specified abnormal findin gs of blood chemistry [facility] 2025-02-19 17:09 Unspecified severe protein-antonella iain malnutrition [facility] 2025-02-19 17:09 Pulmonary hypertension, unspeci fied [facility] 2025-02-19 17:09 Unspecified diastolic (congesti ve) heart failure [facility] 2025-02-19 17:09 Acute on chronic com bined systolic (congestive) and diastolic (congestive) heart failure [facility] 2025-02-19 17:09 Cardiomegaly [facility] 2025-02-19 17:09 Peripheral vascular disease, un specified [facility] 2025-02-19 17:09 Venous insufficiency (chronic) (peripheral) [facility] 2025-02-19 17:09 Cellulitis of right lower limb [facility] 2025-02-19 17:09 Cellulitis of left lower limb [facility] 2025-02-19 17:09 Local infection of t he skin and subcutaneous tissue, unspecified [facility] 2025-02-19 17:09 Non-pressure chronic ulcer of right ankle with fat layer exposed [facility] 2025-02-19 17:09 Non-pressure chronic ulcer of other part of left lower leg with fat layer exposed [facility] 2025-02-19 17:09 Non-pressure chronic ulcer of unspecified part of left lower leg limited to breakdown of skin [facility] 2025-02-19 17:09 Pain in unspecified joint [facility] 2025-02-19 17:09 Pain in joints of right hand [facility] 2025-02-19 17:09 Pain in joints of left hand [facility] 2025-02-19 17:09 Other fatigue [facility] 2025-02-19 17:09 Localized edema [facility] 2025-02-19 17:09 Other specified abnormal findin gs of blood chemistry [facility] 2025-02-26 15:16 Unspecified severe protein-antonella iain malnutrition [facility] 2025-02-26 15:16 Pulmonary hypertension, unspeci fied [facility] 2025-02-26 15:16 Unspecified diastolic (congesti ve) heart failure [facility] 2025-02-26 15:16 Acute on chronic com bined systolic (congestive) and diastolic (congestive) heart failure [facility] 2025-02-26 15:16 Cardiomegaly [facility] 2025-02-26 15:16 Peripheral vascular disease, un specified [facility] 2025-02-26 15:16 Venous insufficiency (chronic) (peripheral) [facility] 2025-02-26 15:16 Cellulitis of right lower limb [facility] 2025-02-26 15:16 Cellulitis of left lower limb [facility] 2025-02-26 15:16 Local infection of t he skin and subcutaneous tissue, unspecified [facility] 2025-02-26 15:16 Non-pressure chronic ulcer of right ankle with fat layer exposed [facility] 2025-02-26 15:16 Non-pressure chronic ulcer of other part of left lower leg with fat layer exposed [facility] 2025-02-26 15:16 Non-pressure chronic ulcer of unspecified part of left lower leg limited to breakdown of skin [facility] 2025-02-26 15:16 Pain in unspecified joint [facility] 2025-02-26 15:16 [facility] joints of right hand [facility] 2025-02-26 15:16 Pain in joints of left hand i [facility] 2025-02-26 15:16 Other fatigue [facility] 2025-02-26 15:16 Localized edema [facility] 2025-02-26 15:16 Other specified abnormal findin gs of blood chemistry [facility] 2025-02-26 15:19 Unspecified severe protein-antonella iain malnutrition [facility] 2025-02-26 15:19 Pulmonary hypertension, unspeci fied [facility] 2025-02-26 15:19 Unspecified diastolic (congesti ve) heart failure [facility] 2025-02-26 15:19 Acute on chronic com bined systolic (congestive) and diastolic (congestive) heart failure [facility] 2025-02-26 15:19 Cardiomegaly [facility] 2025-02-26 15:19 Peripheral vascular disease, un specified [facility] 2025-02-26 15:19 Venous insufficiency (chronic) (peripheral) [facility] 2025-02-26 15:19 Cellulitis of right lower limb [facility] 2025-02-26 15:19 [facility] 15:19 Local infection of t he skin and subcutaneous tissue, unspecified [facility] 2025-02-26 15:19 Non-pressure chronic ulcer of right ankle with fat layer exposed [facility] 2025-02-26 15:19 Non-pressure chronic ulcer of other part of left lower leg with fat layer exposed [facility] 2025-02-26 15:19 Non-pressure chronic ulcer of unspecified part of left lower leg limited to breakdown of skin [facility] 2025-02-26 15:19 Pain in unspecified joint [facility] 2025-02-26 15:19 Pain [facility] joints of right hand [facility] 2025-02-26 15:19 Pain in joints of left hand i [facility] 2025-02-26 15:19 Other fatigue [facility] 2025-02-26 15:19 Localized edema [facility] 2025-02-26 15:19 Other specified abnormal findin gs of blood chemistry [facility] 2025-02-26 16:17 Unspecified severe protein-antonella iain malnutrition [facility] 2025-02-26 16:17 Pulmonary hypertension, unspeci fied [facility] 2025-02-26 16:17 Unspecified diastolic (congesti ve) heart failure [facility] 2025-02-26 16:17 Acute on chronic com bined systolic (congestive) and diastolic (congestive) heart failure [facility] 2025-02-26 16:17 Cardiomegaly [facility] 2025-02-26 16:17 Peripheral vascular disease, un specified [facility] 2025-02-26 16:17 Venous insufficiency (chronic) (peripheral) [facility] 2025-02-26 16:17 Cellulitis of right lower limb [facility] 2025-02-26 16:17 [facility] lower [facility] 16:17 Local infection of t he skin and subcutaneous tissue, unspecified [facility] 2025-02-26 16:17 Non-pressure chronic ulcer of right ankle with fat layer exposed [facility] 2025-02-26 16:17 Non-pressure chronic ulcer of other part of left lower leg with fat layer exposed [facility] 2025-02-26 16:17 Non-pressure chronic ulcer of unspecified part of left lower leg limited to breakdown of skin [facility] 2025-02-26 16:17 Pain in unspecified joint [facility] 2025-02-26 16:17 Pain in joints of right hand [facility] 2025-02-26 16:17 Pain in joints of left hand i [facility] 2025-02-26 16:17 Other fatigue [facility] 2025-02-26 16:17 Localized edema [facility] 2025-02-26 16:17 Other specified abnormal findin gs of blood chemistry [facility]25-03-02 12:01 Unspecified severe protein-antonella iain malnutrition [facility] 2025-03-02 12:01 Pulmonary hypertension, [facility]i [facility] 2025-03-02 12:01 Unspecified diastolic (congesti ve) heart failure [facility] 2025-03-02 12:01 Acute on chronic com bined systolic (congestive) and diastolic (congestive) heart failure [facility] 2025-03-02 12:01 Cardiomegaly [facility] 2025-03-02 12:01 Peripheral vascular disease, un specified [facility] 2025-03-02 12:01 Venous insufficiency (chronic) (peripheral) [facility] 2025-03-02 12:01 Cellulitis of right lower limb [facility] 2025-03-02 12:01 [facility] of left lower limb [facility]25-[facility]02 12:01 Local infection of t he skin and subcutaneous tissue, unspecified [facility] 2025-03-02 12:01 Non-pressure chronic ulcer of right ankle with fat layer exposed [facility] 2025-03-02 12:01 Non-pressure chronic ulcer of other part of left lower leg with fat layer exposed [facility] 2025-03-02 12:01 Non-pressure chronic ulcer of unspecified part of left lower leg limited to breakdown of skin [facility] 2025-03-02 12:01 Pain in unspecified joint [facility] 2025-03-02 12:01 Pain in joints of right hand [facility] 2025-03-02 12:01 Pain in joints of left hand [facility] 2025-03-02 12:01 Other fatigue [facility] 2025-03-02 12:01 Localized edema [facility] 2025-03-02 12:01 Other specified abnormal findin gs of blood chemistry [facility] 2025-03-04 08:52 Unspecified severe protein-antonella iain malnutrition [facility] 2025-03-04 08:52 Pulmonary hypertension, unspeci fied [facility] 2025-03-04 08:52 Unspecified diastolic (congesti ve) heart failure [facility] 2025-03-04 08:52 Acute on chronic com bined systolic (congestive) and diastolic (congestive) heart failure [facility] 2025-03-04 08:52 Cardiomegaly [facility] 2025-03-04 08:52 Peripheral vascular disease, un specified [facility] 2025-03-04 08:52 Venous insufficiency (chronic) (peripheral) [facility] 2025-03-04 08:52 Cellulitis of right lower limb [facility] 2025-03-04 08:52 [facility] lower [facility]25-[facility]04 08:52 Local infection of t he skin and subcutaneous tissue, unspecified [facility] 2025-03-04 08:52 Non-pressure chronic ulcer of right ankle with fat layer exposed [facility] 2025-03-04 08:52 Non-pressure chronic ulcer of other part of left lower leg with fat layer exposed [facility] 2025-03-04 08:52 Non-pressure chronic ulcer of unspecified part of left lower leg limited to breakdown of skin [facility] 2025-03-04 08:52 Pain in unspecified joint [facility] 2025-03-04 08:52 Pain in joints of right hand [facility] 2025-03-04 08:52 Pain in joints of left hand [facility] 2025-03-04 08:52 Other fatigue [facility] 2025-03-04 08:52 Localized edema [facility] 2025-03-04 08:52 Other specified abnormal findin gs of blood chemistry [facility] 2025-03-04 08:53 Unspecified severe protein-antonella iain malnutrition [facility] 2025-03-04 08:53 Pulmonary hypertension, unspeci fied [facility] 2025-03-04 08:53 Unspecified diastolic (congesti ve) heart failure [facility] 2025-03-04 08:53 Acute on chronic com bined systolic (congestive) and diastolic (congestive) heart failure [facility] 2025-03-04 08:53 Cardiomegaly [facility] 2025-03-04 08:53 Peripheral vascular disease, un specified [facility] 2025-03-04 08:53 Venous insufficiency (chronic) (peripheral) [facility] 2025-03-04 08:53 Cellulitis of right lower limb [facility] 2025-03-04 08:53 Cellulitis of left lower limb [facility] 2025-03-04 08:53 Local infection of t he skin and subcutaneous tissue, unspecified [facility] 2025-03-04 08:53 Non-pressure chronic ulcer of right ankle with fat layer exposed [facility] 2025-03-04 08:53 Non-pressure chronic ulcer of other part of left lower leg with fat layer exposed [facility] 2025-03-04 08:53 Non-pressure chronic ulcer of unspecified part of left lower leg limited to breakdown of skin [facility] 2025-03-04 08:53 Pain in unspecified joint [facility] 2025-03-04 08:53 Pain in joints of right hand [facility] 2025-03-04 08:53 Pain in joints of left hand [facility] 2025-03-04 08:53 Other fatigue [facility] 2025-03-04 08:53 Localized edema [facility] 2025-03-04 08:53 Other specified abnormal findin gs of blood chemistry [facility] 2025-03-04 14:29 Unspecified severe protein-antonella iain malnutrition [facility] 2025-03-04 14:29 Pulmonary hypertension, unspeci fied [facility] 2025-03-04 14:29 Unspecified diastolic (congesti ve) heart failure [facility] 2025-03-04 14:29 Acute on chronic com bined systolic (congestive) and diastolic (congestive) heart failure [facility] 2025-03-04 14:29 Cardiomegaly [facility] 2025-03-04 14:29 Peripheral vascular disease, un specified [facility] 2025-03-04 14:29 Venous insufficiency (chronic) (peripheral) [facility] 2025-03-04 14:29 Cellulitis of right lower limb [facility] 2025-03-04 14:29 Cellulitis of left lower limb [facility] 2025-03-04 14:29 Local infection of t he skin and subcutaneous tissue, unspecified [facility] 2025-03-04 14:29 Non-pressure chronic ulcer of right ankle with fat layer exposed [facility] 2025-03-04 14:29 Non-pressure chronic ulcer of other part of left lower leg with fat layer exposed [facility] 2025-03-04 14:29 Non-pressure chronic ulcer of unspecified part of left lower leg limited to breakdown of skin [facility] 2025-03-04 14:29 Pain in unspecified joint [facility] 2025-03-04 14:29 Pain in joints of right hand [facility] 2025-03-04 14:29 [facility]25-03-04 14:29 Other fatigue [facility] 2025-03-04 14:29 Localized edema [facility] 2025-03-04 14:29 Other specified abnormal findin gs of blood chemistry [facility] 2025-03-04 14:46 Unspecified severe protein-antonella iain malnutrition [facility] 2025-03-04 14:46 Pulmonary hypertension, unspeci fied [facility] 2025-03-04 14:46 Unspecified diastolic (congesti ve) heart failure [facility] 2025-03-04 14:46 Acute on chronic com bined systolic (congestive) and diastolic (congestive) heart failure [facility] 2025-03-04 14:46 Cardiomegaly [facility] 2025-03-04 14:46 Peripheral vascular disease, un specified [facility] 2025-03-04 14:46 Venous insufficiency (chronic) (peripheral) [facility] 2025-03-04 14:46 Cellulitis of right lower limb [facility] 2025-03-04 14:46 Cellulitis of left lower limb [facility] 2025-03-04 14:46 Local infection of t he skin and subcutaneous tissue, unspecified [facility] 2025-03-04 14:46 Non-pressure chronic ulcer of right ankle with fat layer exposed [facility] 2025-03-04 14:46 Non-pressure chronic ulcer of other part of left lower leg with fat layer exposed [facility] 2025-03-04 14:46 Non-pressure chronic ulcer of unspecified part of left lower leg limited to breakdown of skin [facility] 2025-03-04 14:46 Pain in unspecified joint [facility] 2025-03-04 14:46 Pain in joints of right hand [facility] 2025-03-04 14:46 Pain in joints of left hand i [facility] 2025-03-04 14:46 Other fatigue [facility] 2025-03-04 14:46 Localized edema [facility] 2025-03-04 14:46 Other specified abnormal findin gs of blood chemistry [facility] 2025-03-05 12:16 Unspecified severe protein-antonella iain malnutrition [facility] 2025-03-05 12:16 Pulmonary hypertension, unspeci fied [facility] 2025-03-05 12:16 Unspecified diastolic (congesti ve) heart failure [facility] 2025-03-05 12:16 Acute on chronic com bined systolic (congestive) and diastolic (congestive) heart failure [facility] 2025-03-05 12:16 Cardiomegaly [facility] 2025-03-05 12:16 Peripheral vascular disease, un specified [facility] 2025-03-05 12:16 Venous insufficiency (chronic) (peripheral) [facility] 2025-03-05 12:16 Cellulitis of right lower limb [facility] 2025-03-05 12:16 [facility] 12:16 Local infection of t he skin and subcutaneous tissue, unspecified [facility] 2025-03-05 12:16 Non-pressure chronic ulcer of right ankle with fat layer exposed [facility] 2025-03-05 12:16 Non-pressure chronic ulcer of other part of left lower leg with fat layer exposed [facility] 2025-03-05 12:16 Non-pressure chronic ulcer of unspecified part of left lower leg limited to breakdown of skin [facility] 2025-03-05 12:16 Pain in unspecified joint [facility] [employer] 2025-03-05 12:16 Pain in joints of right hand [facility] [facility] 2025-03-05 12:16 Pain in joints of left hand [facility] 2025-03-05 12:16 [facility] 2025-03-05 12:16 Localized edema [facility] 2025-03-05 12:16 Other specified abnormal findin gs of blood chemistry [facility] Results/Labs test date facility value unit notes Result panel 1 CUL,WOUND (AEROBIC) 2024-12-09 13:45 [facility] (missing) (missing) (missing) CUL,WOUND (AEROBIC) 2024-12-09 13:45 [facility] CULTURE IN PROGRESS. RESULTS TO FOLLOW. (missing) (missing) CUL,WOUND (AEROBIC) 2024-12-09 13:45 [facility] GRAM STAIN (missing) (missing) CUL,WOUND (AEROBIC) 2024-12-09 13:45 [facility] NO GROWTH AFTER 2 DAYS (missing) (missing) CUL,WOUND (AEROBIC) 2024-12-09 13:45 [facility] NO GROWTH TO DATE (missing) (missing) CUL,WOUND (AEROBIC) 2024-12-09 13[facility]45 [facility] NO ORGANISMS SEEN (missing) (missing) CUL,WOUND (AEROBIC) 2024-12-09 13:45 [facility] NO WHITE BLOOD CELLS SEEN (missing) (missing) CUL,WOUND (AEROBIC) 2024-12-09 13:45 [facility] RARE (1 to 5 colonies) MIXED Skin Amelia Present. No further (missing) (missing) CUL,WOUND (AEROBIC) 2024-12-09 13:45 [facility] RARE WHITE BLOOD CELL SEEN (missing) (missing) CUL,WOUND (AEROBIC) 2024-12-09 13:45 [facility] workup will be performed on this culture. (missing) (missing) Result panel 2 CLINDAMYCIN 2024-12-18 16:30 [facility] (missing) (missing) (missing) CUL,WOUND (AEROBIC) 2024-12-18 16:30 [facility] (missing) (missing) (missing) ERYTHROMYCIN 2024-12-18 16:30 [facility] >=8 (missing) (missing) TIGECYCLINE 2024-12-18 16:30 [facility] <=0.12 (missing) (missing) MOXIFLOXACIN 2024-12-18 16:30 [facility] <=0.25 (missing) (missing) OXACILLIN JAY 2024-12-18 16:30 [facility] <=0.25 (missing) (missing) GENTAMICIN 2024-12-18 16:30 [facility] <=0.5 (missing) (missing) RIFAMPIN 2024-12-18 16:30 [facility] <=0.5 (missing) (missing) CIPROFLOXACIN 2024-12-18 16:30 [facility] <=0.5 (missing) This organism is POSITIVE for Inducible Clindamycin Resistance. A positive ICR test is indicative of inducible resistance to macrolides, lincosamides, and type B streptogramin . This isolate is presumed to be resistant to clindamycin; however, clindamycin may still be effective in some patients. TETRACYCLINE 2024-12-18 16:30 [facility] <=1 (missing) (missing) TRIMETHOPRIM/SUL FAMETHOXAZOLE 2024-12-18 16:30 [facility] <=10 (missing) (missing) PENICILLIN-G 2024-12-18 16:30 [facility] 0.12 (missing) (missing) LEVOFLOXACIN 2024-12-18 16:30 [facility] 0.5 (missing) (missing) QUINUPRISTIN/MERLIN FOPRISTIN 2024-12-18 16:30 [facility] 0.5 (missing) (missing) VANCOMYCIN 2024-12-18 16:30 [facility] 1 (missing) (missing) CUL,WOUND (AEROBIC) 2024-12-18 16:30 [facility] 11+ GROWTH (missing) (missing) LINEZOLID 2024-12-18 16:30 [facility] 2 (missing) (missing) CUL,WOUND (AEROBIC) 2024-12-18 16:30 [facility] CC.6COLONY COUNT (missing) (missing) CUL,WOUND (AEROBIC) 2024-12-18 16:30 [facility] CULTURE IN PROGRESS. RESULTS TO FOLLOW. (missing) (missing) CUL,WOUND (AEROBIC) 2024-12-18 16:30 [facility] GRAN STAIN: NO WBC, NO ORGANISIMS SEEN (missing) (missing) CUL,WOUND (AEROBIC) 2024-12-18 16:30 [facility] IDMICID/JAY COM* (missing) (missing) CUL,WOUND (AEROBIC) 2024-12-18 16:30 [facility] SENSISENSITIVITIES TO FOLLOW (missing) (missing) O:STAAUR 2024-12-18 16:30 [facility] STAAURSTAPHYLOCOCCUS AUREUSSTAPHYLOCOCCUS AUREUS (missing) (missing) Result panel 3 CREATININE 2024-12-31 15:50 [facility] 0.9 mg/dl As of June 2023 testing method has changed, this may include reference ranges. SODIUM 2024-12-31 15:50 [facility] 138 mmol/l As of June 2023 testing method has changed, this may include reference ranges. BNP - B-NATRIURETIC PEPTIDE 2024-12-31 15:50 [facility] 243 pg/ml (missing) POTASSIUM 2024-12-31 15:50 [facility] 3.9 mmol/l As of June 2023 testing method has changed, this may include reference ranges. BUN - BLOOD UREA NITROGEN 2024-12-31 15:50 [facility] 31 mg/dl As of Jun testing method has changed, this may include reference ranges. CARBON DIOXIDE - CO2 2024-12-31 15:50 [facility] 32 mmol/l As of June 2023 testing method has changed, this may include reference ranges. GFR - MDRD 2024-12-31 15:50 [facility] 59 (missin g) Social History date description facility
[2025-03-05 13:06] LABS: BASOPHILS % (AUTO) 0.4 %; EOSINOPHILS # (AUTO) 0.1 10^3/uL (0.0-0.7); EOSINOPHILS % (AUTO) 0.6 %; HCT - HEMATOCRIT 35.5 % (37.0-47.0); HGB - HEMOGLOBIN 11.3 g/dL (12.0-16.0); LYMPHOCYTES # (AUTO) 0.2 10^3/uL (1.5-3.5); MEAN CORPUSCULAR HEMOGLOBIN 31.7 pg (27.0-31.0); MEAN CORPUSCULAR HGB CONC 31.8 g/dL (32.0-36.0); MEAN CORPUSCULAR VOLUME 99.7 fL (81.0-99.0); MONOCYTES # (AUTO) 0.5 10^3/uL (0.0-1.0); MONOCYTES % (AUTO) 5.2 %; NEUTROPHILS # (AUTO) 9.3 10^3/uL (1.5-6.6); NEUTROPHILS % (AUTO) 91.4 %; PLT - PLATELET COUNT 219 10^3/uL (130-450); RED BLOOD COUNT 3.56 10^6/uL (4.20-5.40); RED CELL DISTRIBUTION WIDTH 13.3 % (12.0-15.0); WHITE BLOOD COUNT 10.2 x10^3/uL (4.8-10.8)
[2025-03-05 13:21] LABS: ALBUMIN 4.1 g/dL (3.2-5.5); ALBUMIN/GLOBULIN RATIO 1.6 (1.0-2.2); BILIRUBIN,TOTAL 0.7 mg/dL (0.2-1.0); CALCIUM 9.3 mg/dL (8.5-10.3); CREATININE 0.9 mg/dL (0.6-1.3); POTASSIUM 3.9 mmol/L (3.5-4.5); TOTAL PROTEIN 6.6 g/dL (6.4-8.9)
--- NOTE | 2025-03-05 13:36 | XRAY Report ---
PROCEDURE: XR Chest 1V INDICATIONS: cough TECHNIQUE: One view of the chest was acquired. COMPARISON: None. FINDINGS: Surgical changes and devices: None. Lungs and pleura: Diffuse increased interstitial opacities are present bilaterally compared to prior exam. Lungs are hyperinflated consistent with COPD. Mediastinum: Mediastinal contours appear normal. Heart size is enlarged. Bones and chest wall: No suspicious bony lesions. Overlying soft tissues appear unremarkable. IMPRESSION: Diffuse increased interstitial opacities which may represent edema versus pneumonia. Reviewed by: Hoa Stewart MD on 03/05/2025 1:35 PM PDT Approved by: Hoa Stewart MD on 03/05/2025 1:35 PM PDT Station ID: [id number]
--- NOTE | 2025-03-05 13:41 | ED Physician Documentation ---
PD HPI DYSPNEA Stated complaint Stated Complaint: SOA Chief complaint Chief Complaint: Resp Additional information Additional information: 89-year-old female with history of aplastic anemia, pulmonary hypertension, cardiomegaly, chronic kidney disease stage III, peripheral vascular disease, peripheral venous insufficiency presents emergency department today for increased cough nausea vomiting and generalized malaise. Patient says that she had a tooth extracted on Saturday, 2 days ago she has been taking her clindamycin as well as pain medication to help with the pain she woke this morning suddenly with persistent cough nausea vomiting shortness of breath. She says that she has never been on oxygen at home she has no history of COPD or asthma. She was given a DuoNeb in the ambulance prior to arrival which did help but patient is still on oxygen. She denies any sore throat, runny nose, abdominal pain no dysuria urinary urgency or frequency. Meds/Allgy Home Medications Ambulatory Orders Medication Instructions Recorded Confirmed folic acid 1 mg tablet 1 mg PO DAILY 03/19/14 09/16/24 multivitamin (Daily Multi-Vitamin 1 ea PO DAILY 03/19/14 09/16/24 tablet) eltrombopag olamine 25 mg tablet 12.5 mg PO DAILY 04/03/17 09/16/24 (Promacta) calcium citrate 250 mg PO DAILY 09/16/24 10/02/24 cholecalciferol (vitamin D3) 25 25 mcg PO DAILY 09/16/24 10/02/24 mcg (1,000 unit) capsule (Vitamin D3) ketoconazole 2 % shampoo 1 applic topical ONCE PRN rash 09/16/24 09/24/24 mometasone 0.1 % topical cream 1 applic topical ONCE PRN itching 09/16/24 09/24/24 triamcinolone acetonide 0.1 % 1 applic topical .QD PRN itchy 09/16/24 10/02/24 topical cream furosemide 20 mg tablet 20 mg PO DAILY #30 tabs 12/18/24 furosemide 20 mg tablet 20 mg PO DAILY #30 tabs 02/19/25 doxycycline monohydrate 100 mg 100 mg PO BID 7 days #14 caps 02/26/25 capsule Allergies Allergies Allergy/AdvReac Type Severity Reaction Status Date / Time dapsone Allergy Severe Rash Verified 03/05/25 12:16 Penicillins Allergy Severe Unknown Verified 03/05/25 12:16 wasp Allergy Severe Anaphylaxis Uncoded 11/27/23 21:28 [facility] Active Problems All Active Problems (Updated 03/05/25 @ 20:34 by BARRERA Devi) Community acquired pneumonia (Acute) CHF exacerbation (Acute) COPD exacerbation (Acute) Anemia (Acute) Acute hypoxemic respiratory failure (Acute) Diastolic heart failure (Acute) Cellulitis of right lower limb (Acute) Pulmonary hypertension (Acute) Non-pressure chronic ulcer of other part of left lower leg with fat layer exposed (Acute) Elevated brain natriuretic peptide (BNP) level (Acute) Cellulitis of left lower limb (Acute) Leg edema (Acute) Cardiomegaly (Acute) Non-pressure chronic ulcer left lower leg, limited to breakdown skin (Acute) Protein-calorie malnutrition, severe (Acute) Joint ache (Acute) Non-pressure chronic ulcer right ankle, limited to breakdown skin (Acute) Open wound of right wrist (Acute) Local infection of the skin and subcutaneous tissue, unspecified (Acute) Open wound of right heel (Acute) Non-pressure chronic ulcer of right ankle with fat layer exposed (Acute) Open wound of right ankle (Acute) Non-pressure chronic ulcer of other part of right lower leg with fat layer exposed (Acute) 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 without evidence of necrosis (Acute) Erythema (Acute) Venous insufficiency (chronic) (peripheral) (Acute) Non-pressure chronic ulcer of right ankle with other specified severity (Acute) Head injury (Acute) Facial contusion (Acute) Skin tear (Acute) Hypertension (Acute) CKD (chronic kidney disease) stage 3, GFR 30-59 ml/min (Acute) Aplastic anemia (Acute) Small bowel obstruction (Acute) Medical History Medical History (Updated 03/05/25 @ 20:34 by BARRERA Devi) Peripheral vascular disease, unspecified Degenerative joint disease of knee, right Social History Social History Smoking Status: Former smoker Number of Years Smoked: 0 How many cigarettes a day do you smoke? (20 cigarettes=1 Pk): 0 Do you dip or chew tobacco?: No Patient requests smoking cessation consult: No Initiate information on smoking cessation: No Relationship: Do you feel safe in your home environment?: Yes Suffered physical, verbal, emotional, or financial abuse?: No History of Abuse: No ETOH Use: Frequency: Occasional Exam Exam Vital Signs: Vital Signs x48h Temp Pulse Resp BP Pulse Ox O2 Flow Rate 03/05/25 17:00 37.2 C 111 H 26 H 172/123 H 91 L 4 03/05/25 15:36 97 24 154/107 H 91 L 4 03/05/25 15:35 4 03/05/25 14:19 91 L 2 Constitutional normal general appearance, no apparent distress, abnormal body habitus (thin), no limitations and alert [facility] normocephalic Results Vitals Vitals: Vital Signs - 24 hr 03/05/25 12:16 03/05/25 14:19 03/05/25 15:35 Temperature 37.1 C Temperature Source Oral Pulse Rate 97 Respiratory Rate 24 Blood Pressure 144/89 H O2 Saturation 88 L 91 L Oxygen Delivery Method Nasal Cannula O2 Source Room air Nasal cannula If not protocol: Oxygen Flow, liters/minute 2 4 Pain Intensity 0 03/05/25 15:36 03/05/25 17:00 Temperature 37.2 C Temperature Source Temporal Artery Scan Pulse Rate 97 111 H Respiratory Rate 24 26 H Blood Pressure 154/107 H 172/123 H O2 Saturation 91 L 91 L Oxygen Delivery Method O2 Source Nasal cannula Nasal cannula If not protocol: Oxygen Flow, liters/minute 4 4 Pain Intensity Oxygen O2 Source Nasal cannula Labs Labs: Laboratory Tests 03/05/25 03/05/25 12:58 13:28 WBC 10.2 RBC 3.56 L Hgb 11.3 L Hct 35.5 L MCV 99.7 H MCH 31.7 H MCHC 31.8 L RDW 13.3 Plt Count 219 MPV 10.0 Neut # (Auto) 9.3 H Lymph # (Auto) 0.2 L Harris # (Auto) 0.5 Eos # (Auto) 0.1 Baso # (Auto) 0.0 Absolute Nucleated RBC 0.00 Nucleated RBC % 0.0 Sodium 137 Potassium 3.9 Chloride 98 L Carbon Dioxide 31 Anion Gap 8.0 BUN 29 H Creatinine 0.9 Estimated GFR (MDRD) 59 L Glucose 130 H Lactic Acid 1.5 Calcium 9.3 Total Bilirubin 0.7 AST 18 ALT 8 L Alkaline Phosphatase 82 B-Natriuretic Peptide 430 H Total Protein 6.6 Albumin 4.1 Globulin 2.5 Albumin/Globulin Ratio 1.6 Procalcitonin Immunoas 0.13 Nasal Adenovirus (PCR) NOT DETECTED Nasal B. parapertussis DNA (PCR) NOT DETECTED Nasal Coronavir 229E PCR NOT DETECTED Nasal Coronavir HKU1 PCR NOT DETECTED Nasal Coronavir NL63 PCR NOT DETECTED Nasal Coronavir OC43 PCR NOT DETECTED Nasal Enterovir/Rhinovir PCR NOT DETECTED Nasal Influenza B PCR NOT DETECTED Nasal Influenza A PCR NOT DETECTED Nasal Parainfluen 1 PCR NOT DETECTED Nasal Parainfluen 2 PCR NOT DETECTED Nasal Parainfluen 3 PCR NOT DETECTED Nasal Parainfluen 4 PCR NOT DETECTED Nasal RSV (PCR) NOT DETECTED Nasal B.pertussis DNA PCR NOT DETECTED Nasal C.pneumoniae (PCR) NOT DETECTED Jere Human Metapneumo PCR NOT DETECTED Nasal M.pneumoniae (PCR) NOT DETECTED Nasal SARS-CoV-2 (PCR) NOT DETECTED Rads (name of study) Chest x-ray: Relevant Findings:: Final report received and EMP independent interpretation of test Interpretation: IMPRESSION: Diffuse increased interstitial opacities which may represent edema versus pneumonia. PD Medical Decision Making ED course ED course: 89-year-old female with complex past medical history presents emergency department via EMS today for concerns of increased shortness of breath. Differentials include but not limited to pneumonia, aspiration, upper respiratory infection, pulmonary embolism. Labs are complete for further evaluation no leukocytosis mild anemia, hemoglobin 11.3 BUN slightly elevated at 29, creatinine within normal limits at 0.9, GFR 59 this appears to be patient's baseline kidney function. Chest x-ray was also completed for further evaluation which reveals diffuse increased interstitial opacity which represents edema versus pneumonia. BNP is currently still pending. Given how patient is satting at 86% on room air and she is normally not on supplemental oxygen at home but patient needs to be admitted to the hospital for further observation and evaluation. She remains afebrile here in the emergency department holding off on ordering blood cultures at this point in time. She started on IV Rocephin and azithromycin hospitalist have graciously agreed to admit the patient for further hospitalization and patient is agreeable to stay. Discharge Plan Discharge Patient Disposition: [facility] DC/Xfer Condition: Fair Clinical Impression: Acute hypoxemic respiratory failure, Anemia Interventions: ED Admission Assessment Last Done: 03/05/25 17:30
[2025-03-05] MEDS: SODIUM CHLORIDE 0.9% 1,000 ML IV STA (14:18)
[2025-03-05 15:52] LABS: CORONAVIRUS 229E-RESP PCR NOT DETECTED; CORONAVIRUS HKU1-RESP PCR NOT DETECTED; CORONAVIRUS NL63-RESP PCR NOT DETECTED; CORONAVIRUS OC43-RESP PCR NOT DETECTED; HUMAN METAPNEUMOVIRUS NOT DETECTED; SARS-CoV-2 -RESP PCR PANEL NOT DETECTED
[2025-03-05 15:53] LABS: B. PARAPERTUSSIS- RESP PCR PAN NOT DETECTED; B. PERTUSSIS- RESP PCR PANEL NOT DETECTED; C. PNEUMONIAE- RESP PCR PANEL NOT DETECTED; INFLUENZA A- RESP PCR PANEL NOT DETECTED; INFLUENZA B - RESP PCR PANEL NOT DETECTED; M. PNEUMONIAE- RESP PCR PANEL NOT DETECTED; PARAINFLUENZA VIRUS 1 NOT DETECTED; PARAINFLUENZA VIRUS 2 NOT DETECTED; PARAINFLUENZA VIRUS 4 NOT DETECTED; RHINOVIRUS/ENTEROVIRUS NOT DETECTED; RSV- RESP PCR PANEL NOT DETECTED
[2025-03-05] MEDS: cefTRIAXone 1 GM in SODIUM CHLORIDE 0.9% MINIBAG 100 ML IV STA (15:54)
--- NOTE | 2025-03-05 16:19 | HISTORY & PHYSICAL EXAMINATION ---
Chief Complaint Chief Complaint Chief Complaint: shortness of breath. History of Present Illness Admitted From Admitted From:: home History Obtained From Records Reviewed: wound care notes History obtained from: patient History of Present Illness HPI Comment/Other: 89 yo female presents to ED with complaints of shortness of breath. She denies PMHx aside from aplastic anemia. However, on review of records, she appears to have PVD, R heart failure, CHF, COPD, CKD. She has been losing weight unintentionally. She has a remote hx of colon ca, treated surgically in 2002 with L colectomy. has not had surveillance in quite some time. She has not had PCP for some time, about [address] Mayorga retired. she has upcoming appt with Dr Borges next week to establish care. In any event, had tooth extraction on 03/01. Was doing fine. The day prior to admission saw the philosophy specialist and was also doing well. That evening she began to have some coughing had some coughing overnight then this morning woke up with increased coughing with thick yellow sputum and some beka colored sputum coughed up as well. She has not coughed up any gita blood. She has had increasing shortness of breath and difficulty breathing throughout the day and therefore presented to the emergency department. In the emergency department she is 87 to 80% on room air initially and is now decompensating requiring up to 6 L via nasal cannula to maintain sats in the low 90s. She is tachypneic and uncomfortable. Social history: She lives alone with close support from her sister who lives nearby. She has a caregiver that comes in for 2 hours once a week. She gave up driving about a year ago. She does not smoke she does not drink alcohol. 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 She was almost 17 years ago. She states her sister Татьяна and her daughter Lisy would make her medical decisions if she were unable to do so. She desires to be DNR/DNI. She does not have a POLST Meds/Allgy Home Medications Ambulatory Orders Medication Instructions Recorded Confirmed folic acid 1 mg tablet 1 mg PO DAILY 03/19/14 09/16/24 multivitamin (Daily Multi-Vitamin 1 ea PO DAILY 03/19/14 09/16/24 tablet) eltrombopag olamine 25 mg tablet 12.5 mg PO DAILY 04/03/17 09/16/24 (Promacta) calcium citrate 250 mg PO DAILY 09/16/24 10/02/24 cholecalciferol (vitamin D3) 25 25 mcg PO DAILY 09/16/24 10/02/24 mcg (1,000 unit) capsule (Vitamin D3) ketoconazole 2 % shampoo 1 applic topical ONCE PRN rash 09/16/24 09/24/24 mometasone 0.1 % topical cream 1 applic topical ONCE PRN itching 09/16/24 09/24/24 triamcinolone acetonide 0.1 % 1 applic topical .QD PRN itchy 09/16/24 10/02/24 topical cream furosemide 20 mg tablet 20 mg PO DAILY #30 tabs 12/18/24 furosemide 20 mg tablet 20 mg PO DAILY #30 tabs 02/19/25 doxycycline monohydrate 100 mg 100 mg PO BID 7 days #14 caps 02/26/25 capsule Allergies Allergies Allergy/AdvReac Type Severity Reaction Status Date / Time dapsone Allergy Severe Rash Verified 03/05/25 12:16 Penicillins Allergy Severe Unknown Verified 03/05/25 12:16 wasp Allergy Severe Anaphylaxis Uncoded 11/27/23 21:28 [facility] Active Problems All Active Problems (Updated 03/05/25 @ 20:34 by BARRERA Devi) Community acquired pneumonia (Acute) CHF exacerbation (Acute) COPD exacerbation (Acute) Anemia (Acute) Acute hypoxemic respiratory failure (Acute) Diastolic heart failure (Acute) Cellulitis of right lower limb (Acute) Pulmonary hypertension (Acute) Non-pressure chronic ulcer of other part of left lower leg with fat layer exposed (Acute) Elevated brain natriuretic peptide (BNP) level (Acute) Cellulitis of left lower limb (Acute) Leg edema (Acute) Cardiomegaly (Acute) Non-pressure chronic ulcer left lower leg, limited to breakdown skin (Acute) Protein-calorie malnutrition, severe (Acute) Joint ache (Acute) Non-pressure chronic ulcer right ankle, limited to breakdown skin (Acute) Open wound of right wrist (Acute) Local infection of the skin and subcutaneous tissue, unspecified (Acute) Open wound of right heel (Acute) Non-pressure chronic ulcer of right ankle with fat layer exposed (Acute) Open wound of right ankle (Acute) Non-pressure chronic ulcer of other part of right lower leg with fat layer exposed (Acute) 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 without evidence of necrosis (Acute) Erythema (Acute) Venous insufficiency (chronic) (peripheral) (Acute) Non-pressure chronic ulcer of right ankle with other specified severity (Acute) Head injury (Acute) Facial contusion (Acute) Skin tear (Acute) Hypertension (Acute) CKD (chronic kidney disease) stage 3, GFR 30-59 ml/min (Acute) Aplastic anemia (Acute) Small bowel obstruction (Acute) Medical History Medical History (Updated 03/05/25 @ 20:34 by BARRERA Devi) Peripheral vascular disease, unspecified Degenerative joint disease of knee, right Social History Social History Smoking Status: Former smoker Number of Years Smoked: 0 How many cigarettes a day do you smoke? (20 cigarettes=1 Pk): 0 Do you dip or chew tobacco?: No Patient requests smoking cessation consult: No Initiate information on smoking cessation: No Relationship: Do you feel safe in your home environment?: Yes Suffered physical, verbal, emotional, or financial abuse?: No History of Abuse: No ETOH Use: Frequency: Occasional POLST Patient has POLST: No POLST Status: DNR Review of Systems Status of ROS: 10 or more systems reviewed and unremarkable except as noted in history and below Cardiovascular Reports: shortness of breath with exertion Respiratory Reports: Shortness of breath, Cough, Sputum production, SOB with exertion and Chest congestion Gastrointestinal Reports: Nausea, Vomiting and Poor appetite; Denies: Abdominal pain Genitourinary Reports: Other (Losing urine with cough); Denies: Painful urination or Urinary frequency Integumentary/Breast Denies: Rash Hematologic/Lymphatic Reports: Anemia (Chronic history aplastic anemia) Prior Level of Functionality: Lives alone. Does not drive stopped driving about a year ago. Has 2 hours of caregiver help per week. Has close family support. Exam Exam Vital Signs: Vital Signs x48h Temp Pulse Pulse Resp BP BP Pulse Ox 03/05/25 22:00 85 22 100/66 98 03/05/25 21:00 90 19 133/95 H 94 03/05/25 21:00 03/05/25 20:38 03/05/25 20:37 03/05/25 20:00 36.8 C 85 22 134/91 H 96 03/05/25 19:30 87 03/05/25 19:00 84 16 126/87 97 03/05/25 18:05 98.5 C H 85 16 119/81 97 03/05/25 17:36 100 03/05/25 17:30 107 H 30 H 165/117 H 91 L 03/05/25 17:00 37.2 C 111 H 26 H 172/123 H 91 L 03/05/25 15:36 97 24 154/107 H 91 L 03/05/25 15:35 O2 Flow Rate 03/05/25 22:00 03/05/25 21:00 3 03/05/25 21:00 3 03/05/25 20:38 3 03/05/25 20:37 3 03/05/25 20:00 3 03/05/25 19:30 03/05/25 19:00 03/05/25 18:05 03/05/25 17:36 03/05/25 17:30 6 03/05/25 17:00 4 03/05/25 15:36 4 03/05/25 15:35 4 Constitutional normal general appearance appears ill HENMT normocephalic Eyes PERRL, conjunctivae normal and no scleral icterus Neck/C-Spine visual inspection normal and trachea midline Lymph no lymphadenopathy noted Chest inspection of chest normal and palpation of chest normal Respiratory breath sounds equal bilaterally tachypnea, occasional rales, diffuse rhonchi Cardiovascular normal heart rate noted, regular rhythm noted and no edema Gastrointestinal abdomen normal to inspection and abdomen soft to palpation midline infra umbilical surgical scar Extremities normal to inspection wounds, left >right. there is hydrocolloid dressing in place at left lower extremity wounds with compressive tube gauze in place. Psychiatry mental status grossly normal, oriented x3, thought process normal, cooperative and affect normal Skin skin color normal Conclusion/Plan Problem List (1) Acute hypoxemic respiratory failure: Plan: Presents to the emergency department with acute hypoxia sounds like it is gotten worse over a period of hours. She got ill with an upper respiratory infection overnight with increasing cough and had a marked increase in the amount of sputum this morning. She came to the ED with sats in the mid 80s, 86% on room air. She is currently requiring 4 to 6 L of oxygen to maintain saturations in the low 90s. Initially she does not give me much medical history, however when I start to take into the chart I see that she has history of multiple medical problems. Looking at her chest x-ray this is a mixed picture pneumonia/pulmonary congestion superimposed on a background of COPD. I see flattened hemidiaphragms on her chest x-ray I see pulmonary congestion. I see infiltrates and I see an enlarged heart shadow. I am treating her for COPD exacerbation secondary to CAP and CHF exacerbation. Her BNP is 430, elevated from the only previous value I have of 243 in December of this year. discussion with ANTHONY Maldonado i the [facility] ED, decision made to admit for hypoxia and treat underlying causes. Will admit to obs status. (2) CHF exacerbation: Plan: Patient with diffuse crackles on lung exam. She states that this came on rather quickly this afternoon but was accompanied by sputum and coughing and what seemed like an upper respiratory illness. Her BNP is elevated. Her heart shadow is enlarged on her chest x-ray chronically. And she shows increased interstitial markings on her chest x-ray. She got acutely worse in the emergency department with increasing oxygen requirements and briefly required BiPAP and transferred to the intensive care unit. After several hours on BiPAP she is much improved. She may need to go on and off BiPAP overnight she is currently being diuresed I gave her 20 mg of Lasix in the emergency department. (3) COPD exacerbation: Plan: She is not on any chronic COPD medications at home. Her chest x-ray is indicative of COPD with flattened hemidiaphragms and hyperinflation of her lungs. I have ordered Decadron 10 mg orally once. I have also asked for albuterol Atrovent nebulizer treatments to be given 4 times daily as needed. (4) Community acquired pneumonia: Plan: I have ordered Rocephin and azithromycin. She will get Rocephin x 5 days and azithromycin x 3 days. She is day 1 of these medications. Additionally we are using steroids for COPD exacerbation and bronchodilators for COPD exacerbation. She does have a history of coughing up yellow and beka brown sputum earlier today. (5) Diastolic heart failure: Plan: Patient with right heart failure, elevated right ventricular systolic pressure presents to the ED with acute cough and shortness of breath.Her pulmonary hypertension is probably contributing to her clinical picture overall. I think she also has some untreated COPD. Qualifiers: Heart failure chronicity: unspecified Qualified Code(s): I50.30 - Unspecified diastolic (congestive) heart failure (6) Non-pressure chronic ulcer of other part of left lower leg with fat layer exposed: Plan: She is currently being seen by wound care. She does not have any significant lower extremity edema at this time. She has scaling skin on the bilateral lower extremities. Her wounds do not look severe. The left leg does have several wounds with hydrocolloid adhered to the wounds. I did not take the Hydrocoll colloid dressings down in the emergency department. She does not appear to have any cellulitis. Review of lower extremity angiography exam from November 2024 shows left lower extremity with a moderate above-knee popliteal artery stenosis and multifocal severe anterior tibial artery disease and diffuse posterior tibial artery disease. I have reviewed Dr. Segal's notes from wound care. She does have vascular surgery consultation pending. (7) Non-pressure chronic ulcer right ankle, limited to breakdown skin: Plan: Ulcerations of the right lower extremity are rather minor. There is no cellulitis there is no significant edema of the lower extremity. Review of lower extremity angiography study from November 2024 shows right lower extremity runoff significant for focal distal moderate SFA stenosis, moderate to severe above-knee popliteal stenotic disease and moderate to severe geniculate popliteal stenosis with severe tibial peroneal trunk stenosis and three-vessel runoff. Again vascular surgery consultation is pending. (8) Aplastic anemia: Plan: She has a chronic history of aplastic anemia for which she takes medications. Will continue her on her medication. She is under the care of of oncology at [facility] whom she sees periodically. (9) Protein-calorie malnutrition, severe: Plan: This patient has had unintended weight loss over the last several years. She has a remote history of colon cancer which was treated with colectomy. She has not been able to keep weight on for her 17 years of sheldon, but notices it is worse recently. (10) CKD (chronic kidney disease) stage 3, GFR 30-59 ml/min: Plan: appears stable at this time, no TERESA (11) Peripheral vascular disease, unspecified: Plan: Wound care MD has referred her to vascular surgery. She has significant stenoses as evidenced by lower extremity angiography done in November 2024. I do not believe this is acute issue at this time. Her wounds do not appear acutely infected Plan I have spent 85 minutes in the care of this patient today. This includes time [id number], review and ordering of diagnostic imaging and laboratory studies and consultation with other providers. Monitoring the patient's signs symptoms, evaluation of medication effectiveness and patient's response to treatment. Lab Results Lab results reviewed: Yes 03/05/25 12:58 03/05/25 12:58
[2025-03-05] MEDS: AZITHROMYCIN INJ 500 MG in SODIUM CHLORIDE 0.9% 250 ML IV STA (16:46)
[2025-03-05] MEDS ORDERED: SODIUM CHLORIDE FLUSH 0.9% 10 ML SYRINGE IVP PRN (17:30)
[2025-03-05] MEDS: FUROSEMIDE 20 MG/2 ML VIAL IVP STA (17:36)
[2025-03-05 18:32] LABS: ABG PCO2 40 mmHg (34-45); ABG PH 7.41 (7.35-7.45); ABG PO2 142 mmHg (83-108)
[2025-03-05 18:33] LABS: ABG BASE EXCESS 0.5 mmol/L (-2.0-3.0); ABG HCO3 25.3 mmol/L (22.0-26.0); ABG OXYGEN SATURATION 100 % (95-98); ABG TCO2 26.6 mmol/L (21.0-29.0); ALLEN TEST POSITIVE
[2025-03-05] MEDS ORDERED: ONDANSETRON ODT 4 MG TABLET TL PRN (18:36)
[2025-03-05] MEDS ORDERED: ONDANSETRON 4 MG/2 ML VIAL IVP PRN (18:36)
[2025-03-05] MEDS ORDERED: IPRATROPIUM/ALBUTEROL 3 ML NEB INH PRN (20:37)
[2025-03-05] MEDS: dexAMETHasone 4 MG TABLET PO ONE (21:11)
[2025-03-05] MEDS: SODIUM CHLORIDE FLUSH 0.9% 10 ML SYRINGE IVP SCH (21:15)
[2025-03-06 05:03] LABS: BASOPHILS % (AUTO) 0.1 %; HCT - HEMATOCRIT 35.6 % (37.0-47.0); HGB - HEMOGLOBIN 11.1 g/dL (12.0-16.0); LYMPHOCYTES # (AUTO) 0.1 10^3/uL (1.5-3.5); LYMPHOCYTES % (AUTO) 1.7 %; MEAN CORPUSCULAR HEMOGLOBIN 31.2 pg (27.0-31.0); MEAN CORPUSCULAR HGB CONC 31.2 g/dL (32.0-36.0); MEAN PLATELET VOLUME 10.1 fL (7.9-10.8); MONOCYTES # (AUTO) 0.1 10^3/uL (0.0-1.0); NEUTROPHILS # (AUTO) 8.1 10^3/uL (1.5-6.6); NEUTROPHILS % (AUTO) 96.8 %; PLT - PLATELET COUNT 195 10^3/uL (130-450); RED BLOOD COUNT 3.56 10^6/uL (4.20-5.40); RED CELL DISTRIBUTION WIDTH 13.5 % (12.0-15.0); WHITE BLOOD COUNT 8.4 x10^3/uL (4.8-10.8)
[2025-03-06] MEDS: FUROSEMIDE 20 MG/2 ML VIAL IVP SCH (05:07)
[2025-03-06 05:15] LABS: CALCIUM, IONIZED 1.16 mmol/L (1.09-1.30); VBG PH 7.405 (7.31-7.41)
[2025-03-06 05:20] LABS: CALCIUM 9.1 mg/dL (8.5-10.3); MAGNESIUM 2.1 mg/dL (1.7-2.3); POTASSIUM 4.5 mmol/L (3.5-4.5)
[2025-03-06] MEDS: AZITHROMYCIN INJ 500 MG in SODIUM CHLORIDE 0.9% 250 ML IV SCH (08:26)
[2025-03-06] MEDS: cefTRIAXone 1 GM VIAL IVP SCH (08:35)
--- NOTE | 2025-03-06 12:35 | PHARMACY PROGRESS NOTE ---
Best Possible Medication History Admit Date and Time: 03/05/25 1704 Home Medications Medication Instructions Recorded Confirmed Type folic acid 1 mg tablet 1 mg PO DAILY 03/19/14 03/06/25 History multivitamin (Daily Multi-Vitamin 1 ea PO DAILY 03/19/14 03/06/25 History tablet) eltrombopag olamine 25 mg tablet 12.5 mg PO DAILY 04/03/17 03/06/25 History (Promacta) calcium citrate 250 mg PO DAILY 09/16/24 03/06/25 History cholecalciferol (vitamin D3) 25 25 mcg PO DAILY 09/16/24 03/06/25 History mcg (1,000 unit) capsule (Vitamin D3) ketoconazole 2 % shampoo 1 applic topical ONCE PRN rash 09/16/24 03/06/25 History mometasone 0.1 % topical cream 1 applic topical ONCE PRN itching 09/16/24 03/06/25 History triamcinolone acetonide 0.1 % 1 applic topical .QD PRN itchy 09/16/24 03/06/25 History topical cream furosemide 20 mg tablet 20 mg PO DAILY #30 tabs 12/18/24 03/06/25 Rx Processed by: Pharmacy Medications reviewed in ED?: No Medication History completed: Yes Patient Interview: Completed Secondary Source(s): Insurance records [facility] Statement: [facility] pharmacist [facility] with [facility]. As the person ultimately responsible for medication therapy, providers are able to order a medication from an existing home medication list in [facility] via the "Reconcile Routine" prior to Confirmation of that medication by is support analyst. Such practice is discouraged except when the physician, in their clinical judgment, deems that a medical need exists for a medication without regard to previous use.
--- NOTE | 2025-03-06 17:04 | PROVIDER PROGRESS NOTE ---
Subjective Prog Note Date Prog Note Date: 03/06/25 Subjective Pt reports feeling: Improved Subjective: She feels much better today. She is sitting up in bed in the ICU eating her lunch. She is falling asleep occasionally as she eats, but awakens easily, and feels thankful that she is not struggling to breathe. It seems that she was out of her Lasix for about a week. When she brought her "home meds" in to the ED yesterday, she only brought her abx post tooth extraction, her Tylenol #3 for post extraction pain and her Promacta. Her medical care has been difficult for the last year or so. She had seen Dr Carter for many years, then Dr Mayorga who retired and left the patient without care. She has an appt this week. Dr Segal in the wound care clinic has been looking after her, but she has not had true primary care. She is scheduled to see Dr Otoole, vascular surgery in [place] on the . This is for her lower extremity arterial insuffiency. She is much more able to give me a history today Current Medications Current Medications Current Medications: Current Medications Generic Name Dose Route Start Last Admin Trade Name Freq PRN Reason Stop Dose Admin Acetaminophen 650 mg 03/05/25 18:36 Acetaminophen 325 Mg Tablet PO Q4HR PRN Pain or Fever > 38C (100.4F) Albuterol/Ipratropium 3 ml 03/05/25 20:37 Ipratropium/Albuterol 3 Ml Neb INH RTQID PRN Shortness of Air/Wheezing Ceftriaxone Sodium 1 gm 03/06/25 09:00 03/06/25 08:35 Ceftriaxone 1 Gm Vial IVP 1 gm DAILY JOSE Administration Furosemide 20 mg 03/06/25 06:00 03/06/25 14:56 Furosemide 20 Mg/2 Ml Vial IVP 20 mg BIDDIURETIC JOSE Administration Azithromycin 500 mg/ Sodium 250 mls @ 250 mls/hr 03/06/25 09:00 03/06/25 09:26 Chloride IV Infused DAILY JOSE Infusion Ondansetron HCl 4 mg 03/05/25 18:36 Ondansetron 4 Mg/2 Ml Vial IVP Q6HR PRN Nausea / Vomiting Ondansetron HCl 4 mg 03/05/25 18:36 Ondansetron Odt 4 Mg Tablet TL Q6HR PRN Nausea / Vomiting Sodium Chloride 10 ml 03/06/25 01:00 03/06/25 08:28 Sodium Chloride Flush 0.9% 10 Ml Syringe IVP 10 ml 0100,0900,1700 JOSE Administration Sodium Chloride 10 ml 03/05/25 17:30 Sodium Chloride Flush 0.9% 10 Ml Syringe IVP PRN PRN NEEDED PER PROVIDER ORDERS Objective Vital Signs/Intake & Output Reviewed Vital Signs: Yes Vital Signs: Vital Signs x48h Temp Pulse Resp BP Pulse Ox O2 Flow Rate 03/06/25 16:00 73 14 115/72 100 2 03/06/25 15:00 82 16 101/54 L 100 2 03/06/25 15:00 2 03/06/25 14:55 105/60 03/06/25 14:00 94 18 100/57 L 97 2 03/06/25 13:00 2 03/06/25 13:00 90 19 115/74 97 2 03/06/25 12:00 36.5 C 90 17 120/77 98 2 03/06/25 11:00 82 10 L 116/77 98 2 03/06/25 11:00 2 03/06/25 10:14 93/58 L 03/06/25 10:00 85 24 89/51 L 98 3 03/06/25 09:46 6 03/06/25 09:00 6 03/06/25 09:00 85 24 108/63 98 3 Intake & Output: Intake & Output 03/03/25 03/04/25 03/05/25 03/06/25 23:59 23:59 23:59 23:59 Intake Total 1350 / 1350 490 / 490 Output Total 50 / 50 600 / 600 Balance 1300 / 1300 -110 / -110 Weight (kg) 53 kg 50 kg Objective General Appearance: positive No acute distress, Alert and Other (still on supplemental oxygen) Eyes Bilateral: positive Normal inspection and PERRL ENT: positive ENT inspection nml Neck: positive Nml inspection Respiratory: positive Chest non-tender, No respiratory distress and Rales (occasional) Cardiovascular: positive Regular rate & rhythm Abdomen: positive No distention Back: positive Nml inspection Skin: positive Color nml and No rash Extremities: positive Non-tender Neurologic/Psychiatric: positive Oriented x3 Lab Results 03/06/25 04:54 03/06/25 04:54 Other Labs: Lab Results x24hrs 03/06/25 03/05/25 03/05/25 Range/Units 04:54 18:21 18:05 WBC 8.4 (4.8-10.8) x10^3/uL RBC 3.56 L (4.20-5.40) 10^6/uL Hgb 11.1 L (12.0-16.0) g/dL Hct 35.6 L (37.0-47.0) % MCV 100.0 H (81.0-99.0) fL MCH 31.2 H (27.0-31.0) pg MCHC 31.2 L (32.0-36.0) g/dL RDW 13.5 (12.0-15.0) % Plt Count 195 (130-450) 10^3/uL MPV 10.1 (7.9-10.8) fL Neut # (Auto) 8.1 H (1.5-6.6) 10^3/uL Lymph # (Auto) 0.1 L (1.5-3.5) 10^3/uL Burt # (Auto) 0.1 (0.0-1.0) 10^3/uL Eos # (Auto) 0.0 (0.0-0.7) 10^3/uL Baso # (Auto) 0.0 (0.0-0.1) 10^3/uL Absolute Nucleated RBC 0.00 x10^3/uL Nucleated RBC % 0.0 /100WBC Bld Gas Analysis Time 1827 Sample Site RIGHT RADIAL ABG pH 7.41 (7.35-7.45) ABG pCO2 40 (34-45) mmHg ABG pO2 142 H (83-108) mmHg ABG HCO3 25.3 (22.0-26.0) mmol/L ABG Total CO2 26.6 (21.0-29.0) mmol/L ABG O2 Saturation 100 H (95-98) % ABG Base Excess 0.5 (-2.0-3.0) mmol/L Honorio Test POSITIVE VBG pH 7.405 (7.31-7.41) Ionized Calcium 1.16 (1.09-1.30) mmol/L O2 Delivery Device BiPAP FiO2 60.00 EPAP 5 cmH2O IPAP 15 cmH2O Sodium 138 (135-145) mmol/L Potassium 4.5 (3.5-4.5) mmol/L Chloride 101 (101-111) mmol/L Carbon Dioxide 30 (21-32) mmol/L Anion Gap 7.0 (6-13) BUN 30 H (6-20) mg/dL Creatinine 1.0 (0.6-1.3) mg/dL Estimated GFR (MDRD) 52 L (>89) Glucose 141 H (74-104) mg/dL Calcium 9.1 (8.5-10.3) mg/dL Phosphorus 3.9 (2.5-5.0) mg/dL Magnesium 2.1 (1.7-2.3) mg/dL Nasal Screen MRSA (PCR) NEGATIVE (NEGATIVE) Assessment/Plan Problem List (1) Acute hypoxemic respiratory failure: Impression: She was on BiPAp intermittently overnight, but seems to have weaned down to supplemental O2. She is on room air at home. I plan to keep her in the ICU overnight for respiratory observation, then transfer to [facility] in the AM. I will order PT evaluation for the AM Functionally at baseline, she does not drive but lives alone and manages most of her ADLs. does her own cooking and most of her own cleaning. (2) CHF exacerbation: Impression: Diuresis has been effective. Her renal function is not affected at all by administration of Lasix. Patient appears much more comfortable. Her lung exam is also much improved. (3) COPD exacerbation: Impression: She received 10 mg of Decadron in the emergency department once. She is getting as needed albuterol Atrovent treatments. She is not on any inhalers at baseline at home. I will not continue steroids as clinically she looks very well and have no reason to think she will not continue to wean off supplemental oxygen. (4) Community acquired pneumonia: Impression: Chest x-ray at the time of admission shows diffuse increased interstitial opacities which is edema versus pneumonia. She is day 2 of 3 azithromycin, day 2 of 5 Rocephin. I will continue these antibiotics. She is coughing some but not excessively. She has not produced any sputum since prior to admission. (5) Diastolic heart failure: Impression: atient with right heart failure, elevated right ventricular systolic pressure presents to the ED with acute cough and shortness of breath.Her pulmonary hypertension is probably contributing to her clinical picture overall. I think she also has some untreated COPD. Encouraged primary care follow-up for institution of chronic medications. Qualifiers: Heart failure chronicity: unspecified Qualified Code(s): I50.30 - Unspecified diastolic (congestive) heart failure (6) Non-pressure chronic ulcer of other part of left lower leg with fat layer exposed: Impression: She is currently being seen by wound care. She does not have any significant lower extremity edema at this time. She has scaling skin on the bilateral lower extremities. Her wounds do not look severe. The left leg does have several wounds with hydrocolloid adhered to the wounds. I did not take the Hydrocoll colloid dressings down in the emergency department. She does not appear to have any cellulitis. Review of lower extremity angiography exam from November 2024 shows left lower extremity with a moderate above-knee popliteal artery stenosis and multifocal severe anterior tibial artery disease and diffuse posterior tibial artery disease. I have reviewed Dr. Segal's notes from wound care. She does have vascular surgery consultation pending. (7) Non-pressure chronic ulcer right ankle, limited to breakdown skin: Impression: Ulcerations of the right lower extremity are rather minor. There is no cellulitis there is no significant edema of the lower extremity. Review of lower extremity angiography study from November 2024 shows right lower extremity runoff significant for focal distal moderate SFA stenosis, moderate to severe above-knee popliteal stenotic disease and moderate to severe geniculate popliteal stenosis with severe tibial peroneal trunk stenosis and three-vessel runoff. Again vascular surgery consultation is pending. (8) Aplastic anemia: Impression: She has a chronic history of aplastic anemia for which she takes medications. Will continue her on her medication. She is under the care of of oncology at [facility] whom she sees periodically. (9) Protein-calorie malnutrition, severe: Impression: This patient has had unintended weight loss over the last several years. She has a remote history of colon cancer which was treated with colectomy. She has not been able to keep weight on for her 17 years of sheldon, but notices it is worse recently. She will need primary care surveillance for occult malignancy. (10) CKD (chronic kidney disease) stage 3, GFR 30-59 ml/min: Impression: appears stable at this time, no TERESA I have spent 40 minutes in the care of this patient today. This includes time [id number], review and ordering of diagnostic imaging and laboratory studies. Monitoring the patient's signs symptoms, evaluation of medication effectiveness and patient's response to treatment. Also met with family (daughter and BENJAMIN) at bedside and reviewed patient's HPI, course of her hospital stay, and her medical diagnoses.
[2025-03-07 04:50] LABS: BASOPHILS % (AUTO) 0.1 %; EOSINOPHILS # (AUTO) 0.1 10^3/uL (0.0-0.7); EOSINOPHILS % (AUTO) 1.8 %; HCT - HEMATOCRIT 33.2 % (37.0-47.0); HGB - HEMOGLOBIN 10.3 g/dL (12.0-16.0); LYMPHOCYTES # (AUTO) 0.4 10^3/uL (1.5-3.5); LYMPHOCYTES % (AUTO) 6.2 %; MEAN PLATELET VOLUME 10.6 fL (7.9-10.8); MONOCYTES # (AUTO) 0.5 10^3/uL (0.0-1.0); MONOCYTES % (AUTO) 7.4 %; NEUTROPHILS # (AUTO) 5.9 10^3/uL (1.5-6.6); NEUTROPHILS % (AUTO) 84.2 %; PLT - PLATELET COUNT 208 10^3/uL (130-450); RED BLOOD COUNT 3.32 10^6/uL (4.20-5.40); RED CELL DISTRIBUTION WIDTH 13.7 % (12.0-15.0); WHITE BLOOD COUNT 7.1 x10^3/uL (4.8-10.8)
[2025-03-07 04:55] LABS: CALCIUM, IONIZED 1.17 mmol/L (1.09-1.30); VBG PH 7.461 (7.31-7.41)
[2025-03-07 05:05] LABS: CALCIUM 8.7 mg/dL (8.5-10.3); CREATININE 0.9 mg/dL (0.6-1.3); POTASSIUM 3.5 mmol/L (3.5-4.5)
[2025-03-07] MEDS: POTASSIUM CHLORIDE 20 MEQ TABLET PO SCH (06:19)
[2025-03-07] MEDS: MULTIVITAMIN W/MINERALS TABLET PO SCH (08:10)
[2025-03-07] MEDS: CHOLECALCIFEROL 25 MCG TABLET PO SCH (09:38)
[2025-03-07] MEDS: FOLIC ACID 1 MG TABLET PO SCH (09:38)
[2025-03-07] MEDS: ELTROMBOPAG OLAMINE 25 MG PO SCH (09:38)
[2025-03-07] MEDS: CALCIUM CARB (OYSTER SHELL) 500 MG TABLET PO SCH (09:38)
[2025-03-07] MEDS: PATIENT OWN MED PO SCH (13:38)
--- NOTE | 2025-03-07 14:15 | PROVIDER PROGRESS NOTE ---
Subjective Prog Note Date Prog Note Date: 03/07/25 Subjective Pt reports feeling: Improved Subjective: She is sitting up in a chair at bedside, has eaten lunch. Doing better, but worried about getting home. she is not sure how she will get into her house, and up her 3 stairs. PT evaluation is pending. Current Medications Current Medications Current Medications: Current Medications Generic Name Dose Route Start Last Admin Trade Name Freq PRN Reason Stop Dose Admin Acetaminophen 650 mg 03/05/25 18:36 Acetaminophen 325 Mg Tablet PO Q4HR PRN Pain or Fever > 38C (100.4F) Albuterol/Ipratropium 3 ml 03/05/25 20:37 Ipratropium/Albuterol 3 Ml Neb INH RTQID PRN Shortness of Air/Wheezing Calcium Carbonate/Glycine 500 mg 03/07/25 09:00 03/07/25 09:38 Calcium Carb (Oyster Shell) 500 Mg Tablet PO 500 mg DAILY JOSE Administration Ceftriaxone Sodium 1 gm 03/06/25 09:00 03/07/25 09:36 Ceftriaxone 1 Gm Vial IVP 1 gm DAILY JOSE Administration Cholecalciferol 25 mcg 03/07/25 09:00 03/07/25 09:38 Cholecalciferol 25 Mcg Tablet PO 25 mcg DAILY JOSE Administration Folic Acid 1 mg 03/07/25 09:00 03/07/25 09:38 Folic Acid 1 Mg Tablet PO 1 mg DAILY JOSE Administration Furosemide 20 mg 03/06/25 06:00 03/07/25 09:35 Furosemide 20 Mg/2 Ml Vial IVP 20 mg BIDDIURETIC JOSE Administration Azithromycin 500 mg/ Sodium 250 mls @ 250 mls/hr 03/06/25 09:00 03/07/25 11:04 Chloride IV Infused DAILY JOSE Infusion Multivitamins/Minerals 1 tab 03/07/25 08:00 03/07/25 09:34 Multivitamin W/Minerals Tablet PO 1 tab DAILYWM JOSE Administration Ondansetron HCl 4 mg 03/05/25 18:36 Ondansetron 4 Mg/2 Ml Vial IVP Q6HR PRN Nausea / Vomiting Ondansetron HCl 4 mg 03/05/25 18:36 Ondansetron Odt 4 Mg Tablet TL Q6HR PRN Nausea / Vomiting Patient Own Medication 1 each 03/07/25 13:30 03/07/25 13:38 Patient Own Med PO 1 each DAILY JOSE Administration Sodium Chloride 10 ml 03/06/25 01:00 03/07/25 09:35 Sodium Chloride Flush 0.9% 10 Ml Syringe IVP 10 ml 0100,0900,1700 JOSE Administration Sodium Chloride 10 ml 03/05/25 17:30 Sodium Chloride Flush 0.9% 10 Ml Syringe IVP PRN PRN NEEDED PER PROVIDER ORDERS Objective Vital Signs/Intake & Output Reviewed Vital Signs: Yes Vital Signs: Vital Signs x48h Temp Pulse Resp BP Pulse Ox 03/07/25 13:00 84 20 163/94 H 91 L 03/07/25 12:00 85 21 135/76 H 97 03/07/25 11:00 85 18 106/69 95 03/07/25 10:00 93 19 123/71 94 03/07/25 09:00 36.8 C 98 19 131/71 H 93 03/07/25 08:00 91 27 H 157/113 H 96 03/07/25 07:00 82 16 158/100 H 95 Intake & Output: Intake & Output 03/04/25 03/05/25 03/06/25 03/07/25 23:59 23:59 23:59 23:59 Intake Total 1350 / 1350 670 / 670 550 / 550 Output Total 50 / 50 750 / 750 1000 / 1000 Balance 1300 / 1300 -80 / -80 -450 / -450 Weight (kg) 53 kg 50 kg 50.5 kg Objective General Appearance: positive No acute distress, Alert and Other (still on supplemental oxygen) Eyes Bilateral: positive Normal inspection and PERRL ENT: positive ENT inspection nml Neck: positive Nml inspection Respiratory: positive Chest non-tender, No respiratory distress and Rales (occasional) Cardiovascular: positive Regular rate & rhythm Abdomen: positive No distention Back: positive Nml inspection Skin: positive Color nml and No rash Extremities: positive Non-tender Neurologic/Psychiatric: positive Oriented x3 Lab Results 03/07/25 04:35 03/07/25 04:35 Other Labs: Lab Results x24hrs 03/07/25 Range/Units 04:35 WBC 7.1 (4.8-10.8) x10^3/uL RBC 3.32 L (4.20-5.40) 10^6/uL Hgb 10.3 L (12.0-16.0) g/dL Hct 33.2 L (37.0-47.0) % MCV 100.0 H (81.0-99.0) fL MCH 31.0 (27.0-31.0) pg MCHC 31.0 L (32.0-36.0) g/dL RDW 13.7 (12.0-15.0) % Plt Count 208 (130-450) 10^3/uL MPV 10.6 (7.9-10.8) fL Neut # (Auto) 5.9 (1.5-6.6) 10^3/uL Lymph # (Auto) 0.4 L (1.5-3.5) 10^3/uL [place] # (Auto) 0.5 (0.0-1.0) 10^3/uL Eos # (Auto) 0.1 (0.0-0.7) 10^3/uL Baso # (Auto) 0.0 (0.0-0.1) 10^3/uL Absolute Nucleated RBC 0.00 x10^3/uL Nucleated RBC % 0.0 /100WBC VBG pH 7.461 H (7.31-7.41) Ionized Calcium 1.17 (1.09-1.30) mmol/L Sodium 141 (135-145) mmol/L Potassium 3.5 (3.5-4.5) mmol/L Chloride 104 (101-111) mmol/L Carbon Dioxide 30 (21-32) mmol/L Anion Gap 7.0 (6-13) BUN 38 H (6-20) mg/dL Creatinine 0.9 (0.6-1.3) mg/dL Estimated GFR (MDRD) 59 L (>89) Glucose 98 (74-104) mg/dL Calcium 8.7 (8.5-10.3) mg/dL Phosphorus 2.6 (2.5-5.0) mg/dL Magnesium 2.0 (1.7-2.3) mg/dL Assessment/Plan Problem List (1) Acute hypoxemic respiratory failure: Impression: She has been able to wean onto room air. I am transferring her to [facility] status from ICU. She has been seen by PT today. She has no interest in SNF. She was able to walk 40 feet. She may need lift assist into her home when she does go (3 stairs). She will definitely need home health. This has been ordered. We will plan for home tomorrow. She has PCP appointment on 03/10 Functionally at baseline, she does not drive but lives alone and manages most of her ADLs. does her own cooking and most of her own cleaning. (2) CHF exacerbation: Impression: Diuresis has been effective. Her renal function is not affected at all by administration of Lasix. Patient appears much more comfortable. Her lung exam is also much improved. Discussed the importance of not missing her lasix dose, I think that multiple missed lasix doses is why she had this problem. (3) COPD exacerbation: Impression: She received 10 mg of Decadron in the emergency department once. She is getting as needed albuterol Atrovent treatments. She is not on any inhalers at baseline at home. I will not continue steroids as clinically she looks very well and have no reason to think she will not continue to wean off supplemental oxygen. (4) Community acquired pneumonia: Impression: Chest x-ray at the time of admission shows diffuse increased interstitial opacities which is edema versus pneumonia. She is day 3 of 3 azithromycin, day 3 of 5 Rocephin. I will continue these antibiotics. Cough is much improved. (5) Diastolic heart failure: Impression: Patient with right heart failure, elevated right ventricular systolic pressure presents to the ED with acute cough and shortness of breath.Her pulmonary hypertension is probably contributing to her clinical picture overall. I think she also has some untreated COPD. Encouraged primary care follow-up for institution of chronic medications. Qualifiers: Heart failure chronicity: unspecified Qualified Code(s): I50.30 - Unspecified diastolic (congestive) heart failure (6) Non-pressure chronic ulcer of other part of left lower leg with fat layer exposed: Impression: She is currently being seen by wound care. She does not have any significant lower extremity edema at this time. She has scaling skin on the bilateral lower extremities. Her wounds do not look severe. The left leg does have several wounds with hydrocolloid adhered to the wounds. I did not take the Hydrocoll colloid dressings down in the emergency department. She does not appear to have any cellulitis. Review of lower extremity angiography exam from November 2024 shows left lower extremity with a moderate above-knee popliteal artery stenosis and multifocal severe anterior tibial artery disease and diffuse posterior tibial artery disease. I have reviewed Dr. Segal's notes from wound care. She does have vascular surgery consultation pending. (7) Non-pressure chronic ulcer right ankle, limited to breakdown skin: Impression: Ulcerations of the right lower extremity are rather minor. There is no cellulitis there is no significant edema of the lower extremity. Review of lower extremity angiography study from November 2024 shows right lower extremity runoff significant for focal distal moderate SFA stenosis, moderate to severe above-knee popliteal stenotic disease and moderate to severe geniculate popliteal stenosis with severe tibial peroneal trunk stenosis and three-vessel runoff. Again vascular surgery consultation is pending. (8) Aplastic anemia: Impression: She has a chronic history of aplastic anemia for which she takes medications. Will continue her on her medication. She is under the care of of oncology at [facility] whom she sees periodically. (9) Protein-calorie malnutrition, severe: Impression: This patient has had unintended weight loss over the last several years. She has a remote history of colon cancer which was treated with colectomy. She has not been able to keep weight on for her 17 years of sheldon, but notices it is worse recently. She will need primary care surveillance for occult malignancy. (10) CKD (chronic kidney disease) stage 3, GFR 30-59 ml/min: Impression: appears stable at this time, no TERESA. continue lasix 20 mg BID while admitted. I have spent 36 minutes in the care of this patient today. This includes time [id number], review and ordering of diagnostic imaging and laboratory studies. Monitoring the patient's signs symptoms, evaluation of medication effectiveness and patient's response to treatment.
--- NOTE | 2025-03-07 17:53 | PT Plan of Care ---
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 Please see chart for complete medical hx. The pt was received resting comfortably supine in bed and presented today with decreased B UE and LE strength and decreased activity tolerance which limited her tolerance with functional mobility. At this time recommend continued skilled PT intervention while in the acute setting and DC home with HH therapy and bath aid for further rehab once pt medically stable. This plan was discussed with the pt and she was in agreement with this. At the end of the session the pt was sitting up in a chair with call light in reach and all needs met. RN and PA updated on pt's status and DC rec. PATIENT/FAMILY GOALS Patient/Family Goals: TO be strong enough to go home, "I will not go to a facility". GOALS Improve supine to sit to:: Modified Independent Improve sit to stand to:: Modified Independent Improve pivot transfer ability to:: Modified Independent Improve sit to supine to:: Modified Independent Improve gait ability to:: Ind Advance Assistive Device to:: Four Wheeled Walker Increase distance walked to (in feet):: 50 Improve Sitting Balance to:: Good PLAN Frequency: 1-2x/day Duration: Until discharge DISCHARGE RECOMMENDATIONS Discharge Location: Previous Living Situation Support/Services Needed: Home Health P.T. Other Discharge Equipment: pt owns all recommended DME Transport Needs at Discharge: Personal vehicle
[2025-03-07] MEDS: ACETAMINOPHEN 325 MG TABLET PO PRN (22:50)
[2025-03-08] MEDS: MELATONIN 3 MG TABLET PO PRN (03:42)
[2025-03-08 06:10] LABS: BASOPHILS % (AUTO) 0.3 %; EOSINOPHILS # (AUTO) 0.2 10^3/uL (0.0-0.7); EOSINOPHILS % (AUTO) 2.9 %; HCT - HEMATOCRIT 33.5 % (37.0-47.0); HGB - HEMOGLOBIN 10.5 g/dL (12.0-16.0); LYMPHOCYTES # (AUTO) 0.6 10^3/uL (1.5-3.5); LYMPHOCYTES % (AUTO) 7.7 %; MEAN CORPUSCULAR HEMOGLOBIN 30.4 pg (27.0-31.0); MEAN CORPUSCULAR HGB CONC 31.3 g/dL (32.0-36.0); MEAN CORPUSCULAR VOLUME 97.1 fL (81.0-99.0); MEAN PLATELET VOLUME 10.5 fL (7.9-10.8); MONOCYTES # (AUTO) 0.6 10^3/uL (0.0-1.0); MONOCYTES % (AUTO) 7.9 %; NEUTROPHILS # (AUTO) 5.8 10^3/uL (1.5-6.6); NEUTROPHILS % (AUTO) 80.9 %; PLT - PLATELET COUNT 211 10^3/uL (130-450); RED BLOOD COUNT 3.45 10^6/uL (4.20-5.40); RED CELL DISTRIBUTION WIDTH 13.8 % (12.0-15.0); WHITE BLOOD COUNT 7.1 x10^3/uL (4.8-10.8)
[2025-03-08 06:25] LABS: CALCIUM 9.4 mg/dL (8.5-10.3); CREATININE 0.8 mg/dL (0.6-1.3); POTASSIUM 3.9 mmol/L (3.5-4.5)
--- NOTE | 2025-03-08 15:57 | OT Plan of Care ---
OT Plan of Care OT Plan of Care: Diagnosis Diagnosis ARF, COPD exacerbation, CHF exacerbation, community aquired PNA Chief Complaint weakness and fatigue Onset of Chief Complaint COURT MONITOR on 03/05/25 Medical History (Updated 03/05/25 @ 20:34 by BARRERA Devi) Peripheral vascular disease, unspecified Degenerative joint disease of knee, right Assessment Assessment Pt is a 89 y/o female adm with ARF, COPD exacerbation, CHF exacerbation, community acquired PNA. ICU for management. Met on RA, A& Ox4, willing to participate with therapy. VSS on RA. Performed sit to stand and ambulation 30ft to/from bathroom using RW MIN A - Slowed, guarded pace requiring increased time and cues for RW management. Overall presents with decreased endurance, activity tolerance and ADL status. Will benefit from cont OT services during acute stay. Rec d/c to SNF at this time. Goals - Activities of Daily Living Improve Upper Extremity Modified Independent Dressing to: Improve Lower Extremity Modified Independent Dressing to: Improve Grooming/Hygiene to: Modified Independent Improve Bathing to: Modified Independent Improve Toileting to: Modified Independent Plan Treatment Frequency 1x/day -Discharge Recommendations Discharge Location [facility] Transport Needs at Discharge Wheelchair van
--- NOTE | 2025-03-08 16:27 | PT Plan of Care ---
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 Please see chart for complete medical hx. This visit is a re-evaluation as the pt has now transitioned from Obs to IP. The pt was received sitting up comfortably in a recliner without any signs of discomfort. She presented today without significant changes in strength from yesterday. She does demo increased activity tolerance as she was able to increase the ambulation distance this session. At this time recommend continued skilled PT intervention while in the acute setting and DC rec has changed from home with full HH services to SNF for further rehab once pt medically stable. This plan was discussed with the pt and she was in agreement with this. At the end of the session the pt was sitting up in a chair with call light in reach and all needs met. PATIENT/FAMILY GOALS Patient/Family Goals: To be strong enough to go home, "I will not go to a facility". GOALS Improve supine to sit to:: Modified Independent Improve sit to stand to:: Modified Independent Improve pivot transfer ability to:: Modified Independent Improve sit to supine to:: Modified Independent Improve gait ability to:: Ind Advance Assistive Device to:: Four Wheeled Walker Increase distance walked to (in feet):: 50 Improve Sitting Balance to:: Good PLAN Frequency: 1-2x/day Duration: Until discharge DISCHARGE RECOMMENDATIONS Discharge Location: Nursing Home Facility Support/Services Needed: With assist Other Discharge Equipment: pt owns all recommended DME Transport Needs at Discharge: Wheelchair van
--- NOTE | 2025-03-08 19:40 | PROVIDER PROGRESS NOTE ---
Subjective Prog Note Date Prog Note Date: 03/08/25 Subjective Subjective: She did not sleep much last night, but is having good naps this morning. She wants to go home. she is on room air. Current Medications Current Medications Current Medications: Current Medications Generic Name Dose Route Start Last Admin Trade Name Freq PRN Reason Stop Dose Admin Acetaminophen 650 mg 03/05/25 18:36 03/07/25 22:50 Acetaminophen 325 Mg Tablet PO 650 mg Q4HR PRN Administration Pain or Fever > 38C (100.4F) Albuterol/Ipratropium 3 ml 03/05/25 20:37 Ipratropium/Albuterol 3 Ml Neb INH RTQID PRN Shortness of Air/Wheezing Calcium Carbonate/Glycine 500 mg 03/07/25 09:00 03/08/25 08:21 Calcium Carb (Oyster Shell) 500 Mg Tablet PO 500 mg DAILY JOSE Administration Ceftriaxone Sodium 1 gm 03/06/25 09:00 03/08/25 08:20 Ceftriaxone 1 Gm Vial IVP 1 gm DAILY JOSE Administration Cholecalciferol 25 mcg 03/07/25 09:00 03/08/25 08:21 Cholecalciferol 25 Mcg Tablet PO 25 mcg DAILY JOSE Administration Folic Acid 1 mg 03/07/25 09:00 03/08/25 08:21 Folic Acid 1 Mg Tablet PO 1 mg DAILY JOSE Administration Furosemide 20 mg 03/06/25 06:00 03/08/25 06:17 Furosemide 20 Mg/2 Ml Vial IVP 20 mg BIDDIURETIC JOSE Administration Azithromycin 500 mg/ Sodium 250 mls @ 250 mls/hr 03/06/25 09:00 03/08/25 09:37 Chloride IV Infused DAILY JOSE Infusion Melatonin 3 mg 03/08/25 03:11 03/08/25 03:42 Melatonin 3 Mg Tablet PO 3 mg QPM PRN Administration Insomnia Multivitamins/Minerals 1 tab 03/07/25 08:00 03/07/25 09:34 Multivitamin W/Minerals Tablet PO 1 tab DAILYWM JOSE Administration Ondansetron HCl 4 mg 03/05/25 18:36 Ondansetron 4 Mg/2 Ml Vial IVP Q6HR PRN Nausea / Vomiting Ondansetron HCl 4 mg 03/05/25 18:36 Ondansetron Odt 4 Mg Tablet TL Q6HR PRN Nausea / Vomiting Patient Own Medication 1 each 03/07/25 13:30 03/08/25 09:59 Patient Own Med PO 1 each DAILY JOSE Administration Sodium Chloride 10 ml 03/06/25 01:00 03/08/25 08:21 Sodium Chloride Flush 0.9% 10 Ml Syringe IVP 10 ml 0100,0900,1700 JOSE Administration Sodium Chloride 10 ml 03/05/25 17:30 Sodium Chloride Flush 0.9% 10 Ml Syringe IVP PRN PRN NEEDED PER PROVIDER ORDERS Objective Vital Signs/Intake & Output Reviewed Vital Signs: Yes Vital Signs: Vital Signs x48h Temp Pulse Resp BP Pulse Ox 03/08/25 08:22 36.6 C 80 39 H 145/86 H 94 03/08/25 06:00 37.1 C 84 25 H 141/93 H 94 Intake & Output: Intake & Output 03/05/25 03/06/25 03/07/25 03/08/25 23:59 23:59 23:59 23:59 Intake Total 1350 / 1350 670 / 670 600 / 600 580 / 580 Output Total 50 / 50 750 / 750 1500 / 1500 1000 / 1000 Balance 1300 / 1300 -80 / -80 -900 / -900 -420 / -420 Weight (kg) 53 kg 50 kg 50.5 kg 49.5 kg Objective General Appearance: positive No acute distress, Alert and Other (weaned to room air) Eyes Bilateral: positive Normal inspection and PERRL ENT: positive ENT inspection nml Neck: positive Nml inspection Respiratory: positive Chest non-tender, No respiratory distress and Rales (occasional) Cardiovascular: positive Regular rate & rhythm Abdomen: positive No distention Back: positive Nml inspection Skin: positive Color nml and No rash Extremities: positive Non-tender Neurologic/Psychiatric: positive Oriented x3 Lab Results 03/08/25 05:51 03/08/25 05:51 Other Labs: Lab Results x24hrs 03/08/25 Range/Units 05:51 WBC 7.1 (4.8-10.8) x10^3/uL RBC 3.45 L (4.20-5.40) 10^6/uL Hgb 10.5 L (12.0-16.0) g/dL Hct 33.5 L (37.0-47.0) % MCV 97.1 (81.0-99.0) fL MCH 30.4 (27.0-31.0) pg MCHC 31.3 L (32.0-36.0) g/dL RDW 13.8 (12.0-15.0) % Plt Count 211 (130-450) 10^3/uL MPV 10.5 (7.9-10.8) fL Neut # (Auto) 5.8 (1.5-6.6) 10^3/uL Lymph # (Auto) 0.6 L (1.5-3.5) 10^3/uL Beltrami # (Auto) 0.6 (0.0-1.0) 10^3/uL Eos # (Auto) 0.2 (0.0-0.7) 10^3/uL Baso # (Auto) 0.0 (0.0-0.1) 10^3/uL Absolute Nucleated RBC 0.00 x10^3/uL Nucleated RBC % 0.0 /100WBC Sodium 140 (135-145) mmol/L Potassium 3.9 (3.5-4.5) mmol/L Chloride 102 (101-111) mmol/L Carbon Dioxide 30 (21-32) mmol/L Anion Gap 8.0 (6-13) BUN 32 H (6-20) mg/dL Creatinine 0.8 (0.6-1.3) mg/dL Estimated GFR (MDRD) 68 L (>89) Glucose 104 (74-104) mg/dL Calcium 9.4 (8.5-10.3) mg/dL Assessment/Plan Problem List (1) Acute hypoxemic respiratory failure: Impression: She has been able to wean onto room air. the plan yesterday was that she would go home today. This AM she is very agreeable to that plan, and agreeable to lift assist. I then spoke with her sister and daughter (daughter was on phone), and their perspective was much different. They did not see how Matt could manage at home. There was no plan for someone to stay with her. Patient is initially resistant to SNF, but agrees, if that is what her family would like for her. at baseline, she does not drive but lives alone and manages most of her ADLs. does her own cooking and most of her own cleaning. (2) CHF exacerbation: Impression: Diuresis has been effective. Her renal function is not affected at all by administration of Lasix. Patient appears much more comfortable. Her lung exam is also much improved. Discussed the importance of not missing her lasix dose, I think that multiple missed lasix doses is why she had this problem. (3) COPD exacerbation: Impression: She received 10 mg of Decadron in the emergency department once. She is getting as needed albuterol Atrovent treatments. She is not on any inhalers at baseline at home. She has done well off steroids and therefore will not continue. (4) Community acquired pneumonia: Impression: Chest x-ray at the time of admission shows diffuse increased interstitial opacities which is edema versus pneumonia. She has finished 3 days of azithromycin, day 4 of 5 Rocephin. . Cough is much improved. (5) Diastolic heart failure: Impression: Patient with right heart failure, elevated right ventricular systolic pressure presents to the ED with acute cough and shortness of breath.Her pulmonary hypertension is probably contributing to her clinical picture overall. I think she also has some untreated COPD. Encouraged primary care follow-up for institution of chronic medications. Qualifiers: Heart failure chronicity: unspecified Qualified Code(s): I50.30 - Unspecified diastolic (congestive) heart failure (6) Non-pressure chronic ulcer of other part of left lower leg with fat layer exposed: Impression: She is currently being seen by wound care. She does not have any significant lower extremity edema at this time. She has scaling skin on the bilateral lower extremities. Her wounds do not look severe. The left leg does have several wounds with hydrocolloid adhered to the wounds. I did not take the Hydrocoll colloid dressings down in the emergency department. She does not appear to have any cellulitis. Review of lower extremity angiography exam from November 2024 shows left lower extremity with a moderate above-knee popliteal artery stenosis and multifocal severe anterior tibial artery disease and diffuse posterior tibial artery disease. I have reviewed Dr. Segal's notes from wound care. She does have vascular surgery consultation pending. (7) Non-pressure chronic ulcer right ankle, limited to breakdown skin: Impression: Ulcerations of the right lower extremity are rather minor. There is no cellulitis there is no significant edema of the lower extremity. Review of lower extremity angiography study from November 2024 shows right lower extremity runoff significant for focal distal moderate SFA stenosis, moderate to severe above-knee popliteal stenotic disease and moderate to severe geniculate popliteal stenosis with severe tibial peroneal trunk stenosis and three-vessel runoff. Again vascular surgery consultation is pending. (8) Aplastic anemia: Impression: She has a chronic history of aplastic anemia for which she takes medications. Will continue her on her medication. She is under the care of of oncology at [facility] whom she sees periodically. (9) Protein-calorie malnutrition, severe: Impression: This patient has had unintended weight loss over the last several years. She has a remote history of colon cancer which was treated with colectomy. She has not been able to keep weight on for her 17 years of sheldon, but notices it is worse recently. She will need primary care surveillance for occult malignancy. (10) CKD (chronic kidney disease) stage 3, GFR 30-59 ml/min: Impression: appears stable at this time, no TERESA. continue lasix 20 mg BID while admitted. I have spent 45 minutes in the care of this patient today. This includes time [id number], review and ordering of diagnostic imaging and laboratory studies. Monitoring the patient's signs symptoms, evaluation of medication effectiveness and patient's response to treatment.
[2025-03-09 04:47] LABS: BASOPHILS % (AUTO) 0.6 %; EOSINOPHILS # (AUTO) 0.3 10^3/uL (0.0-0.7); EOSINOPHILS % (AUTO) 6.2 %; HCT - HEMATOCRIT 33.9 % (37.0-47.0); HGB - HEMOGLOBIN 10.7 g/dL (12.0-16.0); LYMPHOCYTES # (AUTO) 0.5 10^3/uL (1.5-3.5); LYMPHOCYTES % (AUTO) 10.2 %; MEAN CORPUSCULAR HEMOGLOBIN 31.4 pg (27.0-31.0); MEAN CORPUSCULAR HGB CONC 31.6 g/dL (32.0-36.0); MEAN CORPUSCULAR VOLUME 99.4 fL (81.0-99.0); MEAN PLATELET VOLUME 10.2 fL (7.9-10.8); MONOCYTES # (AUTO) 0.5 10^3/uL (0.0-1.0); NEUTROPHILS # (AUTO) 3.7 10^3/uL (1.5-6.6); NEUTROPHILS % (AUTO) 72.8 %; PLT - PLATELET COUNT 192 10^3/uL (130-450); RED BLOOD COUNT 3.41 10^6/uL (4.20-5.40); RED CELL DISTRIBUTION WIDTH 13.6 % (12.0-15.0)
[2025-03-09 05:08] LABS: CALCIUM 9.1 mg/dL (8.5-10.3); CREATININE 0.9 mg/dL (0.6-1.3); POTASSIUM 3.9 mmol/L (3.5-4.5)
[2025-03-09 10:01] VITALS: TEMP 98.6
--- NOTE | 2025-03-09 12:35 | Discharge Summary ---
"Discharge Summary Admit Date: 03/05/25 Discharge Date: 03/09/25 Discharging Provider: Marleny Mazariegos PA-C Primary Care Provider: Santa Borges MD Code Status: Do Not Attempt Resuscitation DIAGNOSES Discharge Diagnoses with Status of Each Condition: Acute hypoxemic respiratory failure. She is weaned down to room air. CHF exacerbation. Diuresis has been effective discharged on oral Lasix. COPD exacerbation 1 dose of steroids in the emergency department as needed albuterol Atrovent nebulizer treatments. She may need long-term bronchodilators and inhaled corticosteroids Community-acquired pneumonia. Has completed course of azithromycin. She will finish a total of 5 days antibiotics with Augmentin. Diastolic heart failure: recent echocardiogram December 2024 RVSP 45 Bilateral lower extremity wounds with arterial insufficiency. She has vascular surgery consultation scheduled with Dr. Kel Manning in house and in [place] on March 16, 2025. Aplastic anemia on chronic medication, stable. Protein calorie malnutrition severe. Continue to increase protein in oral intake. CKD stable at this time no TERESA as a consequence of Lasix administration while admitted. HPI History of Present Illness: 89 yo female presents to ED with complaints of shortness of breath. She denies PMHx aside from aplastic anemia. However, on review of records, she appears to have PVD, R heart failure, CHF, COPD, CKD. She has been losing weight unintentionally. She has a remote hx of colon ca, treated surgically in 2002 with L colectomy. has not had surveillance in quite some time. She has not had PCP for some time, about [address] Mayorga retired. she has upcoming appt with Dr Borges next week to establish care. In any event, had tooth extraction on 03/01. Was doing fine. The day prior to admission saw the manufacture specialist and was also doing well. That evening she began to have some coughing had some coughing overnight then this morning woke up with increased coughing with thick yellow sputum and some beka colored sputum coughed up as well. She has not coughed up any gita blood. She has had increasing shortness of breath and difficulty breathing throughout the day and therefore presented to the emergency department. In the emergency department she is 87 to 80% on room air initially and is now decompensating requiring up to 6 L via nasal cannula to maintain sats in the low 90s. She is tachypneic and uncomfortable. Social history: She lives alone with close support from her sister who lives nearby. She has a caregiver that comes in for 2 hours once a week. She gave up driving about a year ago. She does not smoke she does not drink alcohol. 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 She was almost 17 years ago. She states her sister Татьяна and her daughter Lisy would make her medical decisions if she were unable to do so. She desires to be DNR/DNI. She does not have a POLST CONSULTS | PROCEDURES Procedures: Chest x-ray: Diffuse increased interstitial opacities which may represent edema versus pneumonia. HOSPITAL COURSE Hospital Course: (1) Acute hypoxemic respiratory failure: She has been able to wean onto room air. the plan was that she would go home. She was agreeable to that plan. I then spoke with her sister and daughter (daughter was on phone), and their perspective was much different. They did not see how Matt could manage at home. There was no plan for someone to stay with her. Patient is initially resistant to SNF, but agrees, if that is what her family would like for her. at baseline, she does not drive but lives alone and manages most of her ADLs. does her own cooking and most of her own cleaning. (2) CHF exacerbation: Diuresis has been effective. Her renal function is not affected at all by administration of Lasix. Patient appears much more comfortable. Her lung exam is also much improved. Discussed the importance of not missing her lasix doses, I think that multiple missed lasix doses is why she had this problem . (3) COPD exacerbation: She received 10 mg of Decadron in the emergency department once. She is getting as needed albuterol Atrovent treatments. She is not on any inhalers at baseline at home. She has done well off steroids and therefore will not continue. (4) Community acquired pneumonia: Chest x-ray at the time of admission shows diffuse increased interstitial opacities which is edema versus pneumonia. She has finished 3 days of azithromycin, and 5 days of rocephin . Cough is much improved. (5) Diastolic heart failure: Impression: Patient with right heart failure, elevated right ventricular systolic pressure presents to the ED with acute cough and shortness of breath.Her pulmonary hypertension is probably contributing to her clinical picture overall. I think she also has some untreated COPD. Encouraged primary care follow-up for institution of chronic medications. (6) Non-pressure chronic ulcer of other part of left lower leg with fat layer exposed: She is currently being seen by wound care. She does not have any significant lower extremity edema at this time. She has scaling skin on the bilateral lower extremities. Her wounds do not look severe. The left leg does have several wounds with hydrocolloid adhered to the wounds. She does not appear to have any cellulitis. Review of lower extremity angiography exam from November 2024 shows left lower extremity with a moderate above-knee popliteal artery stenosis and multifocal severe anterior tibial artery disease and diffuse posterior tibial artery disease. I have reviewed Dr. Segal's notes from wound care. She does have vascular surgery consultation pending. (7) Non-pressure chronic ulcer right ankle, limited to breakdown skin: Ulcerations of the right lower extremity are rather minor. There is no cellulitis there is no significant edema of the lower extremity. Review of lower extremity angiography study from November 2024 shows right lower extremity runoff significant for focal distal moderate SFA stenosis, moderate to severe above-knee popliteal stenotic disease and moderate to severe geniculate popliteal stenosis with severe tibial peroneal trunk stenosis and three-vessel runoff. Again vascular surgery consultation is pending. (8) Aplastic anemia: She has a chronic history of aplastic anemia for which she takes medications. Will continue her on her medication. She is under the care of of oncology at [facility] whom she sees periodically. (9) Protein-calorie malnutrition, severe: This patient has had unintended weight loss over the last several years. She has a remote history of colon cancer which was treated with colectomy. She has not been able to keep weight on for her 17 years of sheldon, but notices it is worse recently. She will need primary care surveillance for occult malignancy. (10) CKD (chronic kidney disease) stage 3, GFR 30-59 ml/min: Impression: appears stable at this time, no TERESA. continue lasix 20 mg BID. She was on 20mg daily before admit. ALLERGIES Allergies Allergy/AdvReac Type Severity Reaction Status Date / Time dapsone Allergy Severe Rash Verified 03/05/25 12:16 Penicillins Allergy Severe Unknown Verified 03/05/25 12:16 wasp Allergy Severe Anaphylaxis Uncoded 11/27/23 21:28 MEDICATIONS Ambulatory Orders Medication Instructions Recorded Confirmed multivitamin (Daily Multi-Vitamin 1 ea PO DAILY 03/19/14 03/06/25 tablet) ketoconazole 2 % shampoo 1 applic topical ONCE PRN rash 09/16/24 03/06/25 mometasone 0.1 % topical cream 1 applic topical ONCE PRN itching 09/16/24 03/06/25 triamcinolone acetonide 0.1 % 1 applic topical .QD PRN itchy 09/16/24 03/06/25 topical cream acetaminophen 325 mg tablet 650 mg (2 x 325 mg) PO Q4HR PRN 03/09/25 Pain Or Fever > 38c (100.4f) #90 tabs calcium citrate 250 mg PO DAILY #30 tabs 03/09/25 03/06/25 cholecalciferol (vitamin D3) 25 25 mcg PO DAILY #30 caps 03/09/25 03/06/25 mcg (1,000 unit) capsule (Vitamin D3) eltrombopag olamine 25 mg tablet 12.5 mg (1/2 x 25 mg) PO DAILY #30 03/09/25 03/06/25 (Promacta) tabs folic acid 1 mg tablet 1 mg PO DAILY #30 tabs 03/09/25 03/06/25 furosemide 20 mg tablet 20 mg PO BID #60 tabs 03/09/25 03/06/25 ipratropium 0.5 mg-albuterol 3 mg 3 ml inhalation RTQID PRN 03/09/25 (2.5 mg base)/3 mL nebulization Shortness Of Air/Wheezing #180 mL soln PHYSICAL EXAM AT DISCHARGE Vital Signs: Vital Signs x48h Temp Pulse Resp BP Pulse Ox 03/09/25 12:00 79 18 101/51 L 96 03/09/25 09:59 37.0 C 82 20 96/58 L 91 L Physical Exam Other/Comments: General Appearance: positive No acute distress, Alert and Other (weaned to room air) Eyes Bilateral: positive Normal inspection and PERRL ENT: positive ENT inspection nml Neck: positive Nml inspection Respiratory: positive Chest non-tender, No respiratory distress and Rales (occasional) Cardiovascular: positive Regular rate & rhythm Abdomen: positive No distention Back: positive Nml inspection Skin: positive Color nml and No rash Extremities: positive Non-tender Neurologic/Psychiatric: positive Oriented x3 LABS 03/09/25 04:36 03/09/25 04:36 FOLLOW UP Follow Up: PCP- was to establish care with Dr Santa Borges 03/10. This will need r/s. She has consult scheduled with Dr Kel Otoole 03/16, vascular sx, PRMCE TIME SPENT Time Spent in Discharge (Minutes): 45 Discharge Plan Discharge Patient Disposition: 03 SNF DC/Xfer Condition: Fair Prescriptions: New acetaminophen 325 mg Tablet 650 mg PO Q4HR PRN (Reason: Pain Or Fever > 38c (100.4f)) Qty: 90 0RF ipratropium-albuterol 0.5 mg-3 mg(2.5 mg base)/3 mL Solution For Nebulization 3 ml inhalation RTQID PRN (Reason: Shortness Of Air/Wheezing) Qty: 180 0RF Continued multivitamin [Daily Multi-Vitamin] 1 EACH tablet 1 ea PO DAILY ketoconazole 2 % shampoo 1 applic TOPICAL ONCE PRN (Reason: rash) triamcinolone acetonide 0.1 % cream 1 applic TOPICAL .QD PRN (Reason: itchy) mometasone 0.1 % cream 1 applic TOPICAL ONCE PRN (Reason: itching) folic acid 1 MG tablet 1 mg PO DAILY Qty: 30 0RF cholecalciferol (vitamin D3) [Vitamin D3] 25 mcg (1,000 unit) capsule 25 mcg PO DAILY Qty: 30 0RF calcium citrate 250 mg calcium tablet 250 mg PO DAILY Qty: 30 0RF Promacta 25 MG tablet 12.5 mg PO DAILY Qty: 30 0RF Changed furosemide 20 mg tablet 20 mg PO BID Qty: 60 0RF Activity Restrictions: Activity as Tolerated Diet: Cardiac Health Concerns: You came into the hospital because you cannot breathe. Your health care has been somewhat disjointed due to losing your primary care provider a few months ago. In the interim you have been able to see Dr. Segal and he has done an excellent job trying to keep things together for you. You have had increasing and leg swelling and what is happening is that you are having heart failure. New things she learned about your health since you have been here have been that you have COPD and heart failure. These things are evident looking at your chest x-ray. We have gone over this and started you on treatment for both of these conditions. This acute illness has made you very weak. Right now you are too weak to be at home without 24-hour care. You also need some physical therapy to get stronger and better. You will get better and your goal is to return back home and live independently with some assistance from family and caregivers. I think that you will do this very soon and be able to go home. You need to get set up with a primary care provider and because of this bump in the road with needing to go to residential you may have to set that appointment for later than Saturday. I am sending a copy of your hospitalization records to Dr. Borges at the clinic at [place]. Care Plan Goals: Get strong enough to live independently again Take your Lasix 20 mg twice a day. I think that you need to take this in the morning and then it about 2:00 in the afternoon. I know that it makes you urinate a lot but it is what is keeping your breathing steady Print Language: Peruvian Patient Instructions: Heart Failure, Heart Failure Coping, Heart Failure Diet Changes Stand Alone Forms: PCP List Follow-up Care: Santa Borges MD [Provider Admit Priv/Credential] - Kel Otoole MD [Physician No Access] -"
[2025-03-09 15:28] VITALS: BP 118/72; O2SAT 95
== END 2025-03-09 15:00 | DRG 189 ==
LOC: ICU 12:11 → ED 12:11 → ICU 17:30
PROVIDERS: ADMIT Physician Assistant Medical; ATTEND Physician Assistant Medical
DX: Z87.891 Personal history of nicotine dependence; Z90.49 Acquired absence of other specified parts of digestive tract; J44.1 Chronic obstructive pulmonary disease with (acute) exacerbation; Z85.038 Personal history of other malignant neoplasm of large intestine; Z68.1 Body mass index [BMI] 19.9 or less, adult; Z66 Do not resuscitate; I73.9 Peripheral vascular disease, unspecified; J44.0 Chronic obstructive pulmonary disease with (acute) lower respiratory infection; J18.9 Pneumonia, unspecified organism; R11.2 Nausea with vomiting, unspecified; I13.0 Hypertensive heart and chronic kidney disease with heart failure and stage 1 through stage 4 chronic kidney disease, or unspecified chronic kidney disease; I50.33 Acute on chronic diastolic (congestive) heart failure; Z20.822 Contact with and (suspected) exposure to COVID-19; D61.9 Aplastic anemia, unspecified; J96.01 Acute respiratory failure with hypoxia; Z79.899 Other long term (current) drug therapy; Z20.828 Contact with and (suspected) exposure to other viral communicable diseases; L97.822 Non-pressure chronic ulcer of other part of left lower leg with fat layer exposed; L97.311 Non-pressure chronic ulcer of right ankle limited to breakdown of skin; Z20.818 Contact with and (suspected) exposure to other bacterial communicable diseases; N18.30 Chronic kidney disease, stage 3 unspecified; E43 Unspecified severe protein-calorie malnutrition